=== PATIENT | female | born 1960 | race Caucasian/White ===

== ENCOUNTER 2016-04-11 06:26 | Emergency (ER) | payer OTHER ==
[~2016-04-11] VITALS: Ht 157.5 cm; Wt 48.9 kg
[~2016-04-11 06:26] MED LIST: OXGN
[2016-04-11 06:32] VITALS: TEMP 36.8; Ht 157.5 cm; Wt 48.9 kg
[2016-04-11] MEDS ORDERED: HYDR50CA2 PO (06:59)
[2016-04-11] MEDS ORDERED: CHOLPOW PO (07:00)
[2016-04-11 07:27] LABS: BASO % 0.5 %; BASO ABS # 0.03 K/uL (0-0.2); COMPLETE YES; EOS % 2.1 %; HEMATOCRIT 39.7 % (37-47); IG% 0.2 %; LYMPH ABS # 1.93 K/uL (1.2-3.4); MEAN CORPUSCULAR HEMOGLOBIN 31.7 pg (25-34); MEAN CORPUSCULAR HGB CONC 35.3 g/dl (32-36); MEAN PLATELET VOLUME 11.1 fL (7.4-10.4); MONO % 8.7 %; NEUT % 55.5 %; PLATELET COUNT 224 K/uL (130-400); RED BLOOD COUNT 4.41 M/uL (4.2-5.4); WHITE BLOOD COUNT 5.84 K/uL (4.8-10.8)
[2016-04-11] MEDS ORDERED: LORAZEPAM 1 MG TAB SL STA (07:31)
[2016-04-11 07:42] LABS: BLOOD UREA NITROGEN 7 mg/dl (7-18); BUN/CREATININE RATIO 9.6 (10-20); CARBON DIOXIDE 23 mmol/L (21-32); CHLORIDE 109 mmol/L (98-107); GLUCOSE 80 mg/dl (70-99); POTASSIUM 3.9 mmol/L (3.5-5.1); SODIUM 141 mmol/L (136-145)
--- NOTE | 2016-04-11 07:50 | DIAGNOSTIC IMAGING REPORT ---
LUMBAR SPINE 5 VIEWS HISTORY: low back pain COMPARISON: None. FINDINGS: There is no fracture. No subluxation. Prior cholecystectomy. Suture material within the deep pelvis. The sacrum is intact. Mild facet degenerative changes within the lower lumbar spine. Disc spaces are relatively preserved for age. Tiny endplate osteophytes within the lumbar spine. IMPRESSION: 1. No fracture or subluxation within the lumbar spine. 2. Mild facet degenerative changes within the lower lumbar spine. Electronically signed by: Junior Velazquez M.D. 04/11/2016 7:49 AM Dictated Date/Time: 04/11/2016 7:47 AM
[2016-04-11 07:53] LABS: ALB/GLOB RATIO 0.9 (0.9-2); ALKALINE PHOSPHATASE 71 U/L (45-117); ALT/SGPT 19 U/L (12-78); AST/SGOT 12 U/L (15-37)
[2016-04-11 08:01] LABS: URINE APPEARANCE CLOUDY (CLEAR); URINE BILIRUBIN NEG (NEG); URINE COLOR YELLOW; URINE EPITHELIAL CELL AUTO 0-5 /lpf (0-5); URINE NITRITE NEG (NEG); URINE SPECIFIC GRAVITY 1.001 (1.000-1.030); UROBILINOGEN NEG (NEG)
[2016-04-11 08:06] LABS: MANUAL MICROSCOPIC REQUIRED? NO; REVIEW REQ? NO
[2016-04-11 08:35] LABS: BENZODIAZEPINE, URINE NEG (NEG); COCAINE,URINE NEG (NEG); PHENCYCLIDINE, URINE NEG (NEG)
[2016-04-11] MEDS ORDERED: ATV/1 PO (09:39)
[2016-04-11 10:27] VITALS: BP 108/69; PULSE 87; O2SAT 99
--- NOTE | 2016-04-11 15:18 | EMERGENCY ROOM VISIT NOTE ---
History Report prepared by Jared: Hay Armando Under the Supervision of: Dr. Matt Bedolla M.D. First contact with patient: 06:45 Chief Complaint: ANXIETY Stated Complaint: ANXIETY History of Present Illness The patient is a 55 year old female who presents to the Emergency Room with complaints of acute anxiety for the past two days. The patient has felt like "her insides are shaking." She is also having trouble sleeping and has a lot running through her mind. She is not sure what triggered this episode. She had the same feeling many years ago, and was diagnosed with anxiety and depression at [facility]. At that time she was prescribed Lorazepam and Prozac, which she hasn't taken in years. The patient has only had minor episodes of anxiety since the initial diagnosis. The patient denies suicidal or homicidal ideations. The patient was admitted as an inpatient for suicidality years ago when she was still under the influence of alcohol. She hasn't used drugs or alcohol in many years. The patient also notes that she lost 9 pounds over the past three weeks. She also complains of persistent back pain. She denies any back injuries or falls. Patient denies LOC, headache, fevers, chills, diaphoresis, visual changes , neck pain, chest pain, breathing difficulties, nausea, vomiting, abdominal pain, melena, hematochezia, urinary symptoms, numbness, weakness, lymphadenopathy, rash, or other complaints. Source of History: patient Onset: two days Position: other (psyche) Quality: other (anxiety) Timing: other (acute) Associated Symptoms: + back pain Note: Negative suicidal or homicidal ideations. Review of Systems See HPI for pertinent positives and negatives. A total of ten systems were reviewed and were otherwise negative. Past Medical & Surgical Medical Problems: (1) COPD (chronic obstructive pulmonary disease) (2) Depression (3) Generalized anxiety disorder (4) GERD (gastroesophageal reflux disease) (5) History of diverticulitis (6) Hx-Uterus Malignancy Nec (7) Small bowel obstruction Surgical Problems: (1) H/O colonoscopy (2) History of bowel resection (3) History of hysterectomy (4) Hx of dilation and curettage (5) Hx of hernia repair (6) Hx of laparoscopy (7) S/P exploratory laparotomy Family History Cancer Diabetes mellitus Lung disease Social History Smoking Status: Current Every Day Smoker Alcohol Use: none Drug Use: none Marital Status: in relationship Housing Status: lives with significant other Occupation Status: unemployed Current/Historical Medications Scheduled Cholestyramine (Bulk) (Cholestyramine), 1 PKT PO Q2D Hydroxyzine Pamoate (Vistaril), 50 MG PO TID Scheduled PRN Lorazepam (Ativan), 1 MG PO Q6H PRN for Anxiety/Agitation Allergies Coded Allergies: No Known Allergies (Unverified , 03/07/15) Physical Exam Vital Signs Date Time Temp Pulse Resp B/P Pulse Ox O2 Delivery O2 Flow Rate FiO2 04/11/16 10:27 87 108/69 99 04/11/16 09:39 83 101/67 98 04/11/16 07:49 77 18 126/67 98 Room Air 04/11/16 06:32 36.8 81 18 129/83 97 Room Air Physical Exam GENERAL: Awake, alert, well appearing, no distress HENT: Normocephalic, atraumatic. TM's normal. Oropharynx unremarkable. EYES: PERRL. EOMI. Normal conjunctiva. Sclera non-icteric. NECK: Supple. No nuchal rigidity. FROM. No JVD or bruit. RESPIRATORY: CTA CARDIAC: RRR. No murmur. ABDOMEN: Soft, non distended. No tenderness to palpation. No rebound or guarding. No masses. MUSCULOSKELETAL: Unremarkable. No edema. No discoloration. Gross motor strength symmetric. NEURO: Cranial nerves 2-12 grossly intact. Normal sensorium. No sensory or motor deficits noted. Speech normal. No pronator drift. SKIN: No rash or jaundice noted. LYMPH: No adenopathy. PSYCH: Anxious mood. Normal affect. No suicidal ideation. no homicidal ideation. Medical Decision & Procedures ER Provider Diagnostic Interpretation: X-ray: Per my interpretation, radiologist review. LUMBAR SPINE 5 VIEWS HISTORY: low back pain COMPARISON: None. FINDINGS: There is no fracture. No subluxation. Prior cholecystectomy. Suture material within the deep pelvis. The sacrum is intact. Mild facet degenerative changes within the lower lumbar spine. Disc spaces are relatively preserved for age. Tiny endplate osteophytes within the lumbar spine. IMPRESSION: 1. No fracture or subluxation within the lumbar spine. 2. Mild facet degenerative changes within the lower lumbar spine. Electronically signed by: Junior Velazquez M.D. 04/11/2016 7:49 AM Dictated Date/Time: 04/11/2016 7:47 AM Laboratory Results 04/11/16 07:05 Red Blood Count 4.41, Mean Corpuscular Volume 90.0, Mean Corpuscular Hemoglobin 31.7, Mean Corpuscular Hemoglobin Concent 35.3, Mean Platelet Volume 11.1, Neutrophils (%) (Auto) 55.5, Lymphocytes (%) (Auto) 33.0, Monocytes (%) (Auto) 8.7, Eosinophils (%) (Auto) 2.1, Basophils (%) (Auto) 0.5, Neutrophils # (Auto) 3.24, Lymphocytes # (Auto) 1.93, Monocytes # (Auto) 0.51, Eosinophils # (Auto) 0.12, Basophils # (Auto) 0.03 04/11/16 07:05 Test 04/11/16 07:05 04/11/16 07:08 04/11/16 07:40 White Blood Count 5.84 K/uL (4.8-10.8) Red Blood Count 4.41 M/uL (4.2-5.4) Hemoglobin 14.0 g/dL (12.0-16.0) Hematocrit 39.7 % (37-47) Mean Corpuscular Volume 90.0 fL (80-100) Mean Corpuscular Hemoglobin 31.7 pg (25-34) Mean Corpuscular Hemoglobin Concent 35.3 g/dl (32-36) Platelet Count 224 K/uL (130-400) Mean Platelet Volume 11.1 fL (7.4-10.4) Neutrophils (%) (Auto) 55.5 % Lymphocytes (%) (Auto) 33.0 % Monocytes (%) (Auto) 8.7 % Eosinophils (%) (Auto) 2.1 % Basophils (%) (Auto) 0.5 % Neutrophils # (Auto) 3.24 K/uL (1.4-6.5) Lymphocytes # (Auto) 1.93 K/uL (1.2-3.4) Monocytes # (Auto) 0.51 K/uL (0.11-0.59) Eosinophils # (Auto) 0.12 K/uL (0-0.5) Basophils # (Auto) 0.03 K/uL (0-0.2) RDW Standard Deviation 46.3 fL (36.4-46.3) RDW Coefficient of Variation 14.0 % (11.5-14.5) Immature Granulocyte % (Auto) 0.2 % Immature Granulocyte # (Auto) 0.01 K/uL (0.00-0.02) Anion Gap 9.0 mmol/L (3-11) Est Creatinine Clear Calc Drug Dose 70.1 ml/min Estimated GFR () 113.0 Estimated GFR (Non- 97.5 BUN/Creatinine Ratio 9.6 (10-20) Calcium Level 9.0 mg/dl (8.5-10.1) Total Bilirubin 0.2 mg/dl (0.2-1) Direct Bilirubin < 0.1 mg/dl (0-0.2) Aspartate Amino Transf (AST/SGOT) 12 U/L (15-37) Alanine Aminotransferase (ALT/SGPT) 19 U/L (12-78) Alkaline Phosphatase 71 U/L (45-117) Total Protein 7.4 gm/dl (6.4-8.2) Albumin 3.6 gm/dl (3.4-5.0) Globulin 3.8 gm/dl (2.5-4.0) Albumin/Globulin Ratio 0.9 (0.9-2) Thyroid Stimulating Hormone (TSH) 2.860 uIu/ml (0.300-4.500) Ethyl Alcohol mg/dL < 3.0 mg/dl (0-3) Bedside Glucose 80 mg/dl (70-90) Urine Color YELLOW Urine Appearance CLOUDY (CLEAR) Urine pH 5.0 (4.5-7.5) Urine Specific [place] 1.001 (1.000-1.030) Urine Protein NEG (NEG) Urine Glucose (UA) NEG (NEG) Urine Ketones NEG (NEG) Urine Occult Blood NEG (NEG) Urine Nitrite NEG (NEG) Urine Bilirubin NEG (NEG) Urine Urobilinogen NEG (NEG) Urine Leukocyte Esterase LARGE (NEG) Urine WBC (Auto) >30 /hpf (0-5) Urine RBC (Auto) 0-4 /hpf (0-4) Urine Hyaline Casts (Auto) 1-5 /lpf (0-5) Urine Epithelial Cells (Auto) 0-5 /lpf (0-5) Urine Bacteria (Auto) 4+ (NEG) Urine Opiates Screen NEG (NEG) Urine Methadone, Qualitative NEG (NEG) Urine Barbiturates NEG (NEG) Urine Phencyclidine (PCP) Level NEG (NEG) Ur Amphetamine/Methamphetamine NEG (NEG) MDMA (Ecstasy) Screen NEG (NEG) Urine Benzodiazepines Screen NEG (NEG) Urine Cocaine Metabolite NEG (NEG) Urine Marijuana (THC) NEG (NEG) Laboratory results reviewed by me Medications Administered Medications (Trade) Dose Ordered Sig/Trung Route Start Time Stop Time Status Last Admin Dose Admin Lorazepam (Ativan Tab) 1 mg NOW STAT SL 04/11/16 07:31 04/11/16 07:32 DC 04/11/16 07:48 1 MG ED Course 0725: The patient was evaluated in room B3b. A complete history and physical exam was performed. 0731: Ativan 1 mg SL. 0850: The patient was evaluated by [facility]. 0910: She is feeling better from the Ativan. 0935: Reassessed the patient. She is doing much better. I discussed the findings with her. She verbalized understanding and agreement of the treatment plan. The patient is ready for discharge. Medical Decision Prior records/ancillary studies reviewed. Triage Nursing notes reviewed and agree them. The patient's history was concerning for possible psychiatric disturbance. Differential diagnosis: Etiologies such as mood disorder, infection, hypoglycemia, electrolyte abnormalities, cardiac sources, intracerebral event, toxicologic, neurologic, as well as others were entertained. Physical examination: The physical examination was performed as above and was completely benign. No emergent medical pathologies were noted. The patient had some mild back pain. Negative SLR. No saddle paresthesias. Normal lower leg strength. ER treatment provided: Oral Ativan On reassessment the patient felt better. Diagnostic interpretation by me: The labs revealed an unremarkable CBC and chemistry panel. Urinalysis tox screen unremarkable. Imaging studies: X-rays as above Consultation: A consultation was placed with mental health. The patient was evaluated by mental health in the emergency department and they felt outpatient treatment was reasonable. The patient did not want to be admitted to the hospital. The patient was provided with information for follow-up. She did not want to have her information released. By the evaluation outlined above emergent etiologies such as infection, hypoglycemia, electrolyte abnormalities, cardiac sources, intracerebral event, toxicologic, neurologic,as well as others were deemed relatively unlikely. It appears the patient is dealing with a psychiatric disturbance. The patient was informed about the findings as listed above. All questions were answered and she was pleased with the treatment. Return instructions were outlined and the patient was discharged in stable condition. Outpatient prescription management: Ativan Referral: Outpatient services were arranged by psychiatry. The patient will follow-up this week or return to the emergency department if symptoms worsen. The patient was referred back to her primary care physician for follow-up in 2 to 3 days for a recheck of the current condition. The chart was completed utilizing [employer] Speech voice recognition software. Grammatical errors, random word insertions, pronoun errors, and incomplete sentences are an occasional consequence of this system due to software limitations, ambient noise, and hardware issues. Any formal questions or concerns about the content, text, or information contained within the body of this dictation should be directly addressed to the physician for clarification. [place] Drug Monitoring Program Search Results: patient reviewed within database, no issues identified Impression Primary Impression: Mood disorder Additional Impressions: Anxiety Low back pain Scribe Attestation The scribe's documentation has been prepared under my direction and personally reviewed by me in its entirety. I confirm that the note above accurately reflects all work, treatment, procedures, and medical decision making performed by me. Departure Information Dispostion Home / Self-Care Prescriptions Lorazepam (ATIVAN) 1 Mg Tab 1 MG PO Q6H Y for Anxiety/Agitation, #10 TAB Prov: Matt Bedolla MD 04/11/16 Referrals Placido Emerson M.D. (PCP) Forms HOME CARE DOCUMENTATION FORM, IMPORTANT VISIT INFORMATION Patient Instructions My [facility] Additional Instructions PSYCHIATRIC INSTRUCTIONS: Ativan 1 mg: Take one every 6 hours as needed for severe anxiety. Do not drive if taking. May cause drowsiness. Do not take if you are at work or doing any activity where being under the influence may be dangerous. Continue your current medications. Return to the ER for severe anxiety or depression, thoughts of hurting yourself or others, inability to function, hallucinations, worsening of your condition, or as needed. Follow up with outpatient services as arranged by psychiatry/mental health. Follow up with your primary care physician this week for a recheck of your current condition and continued care. Problem Qualifiers
[2016-07-10] MEDS ORDERED: TRAM-10 PO (10:53)
[2016-07-10] MEDS ORDERED: ESCI10TA17 PO (10:53)
[2016-07-10] MEDS ORDERED: GENT0.3S6 OP (10:53)
[2016-07-10] MEDS ORDERED: DICY10CA12 PO (10:53)
[2016-07-10] MEDS ORDERED: ONDA4TAB46 PO (10:53)
[2016-07-10] MEDS ORDERED: PRLSR20 PO (10:53)
[2016-07-10] MEDS ORDERED: LORA-741 PO (10:53)
[2016-07-12] MEDS ORDERED: CEPH500C PO (10:55)
== END 2016-04-11 10:27 | disposition home or self-care (01) ==
LOC: C.EDB 06:28
DX: F39 Unspecified mood [affective] disorder (principal); F41.9 Anxiety disorder, unspecified; M54.5 Low back pain; J44.9 Chronic obstructive pulmonary disease, unspecified; K21.9 Gastro-esophageal reflux disease without esophagitis; F17.200 Nicotine dependence, unspecified, uncomplicated

== ENCOUNTER → 2016-08-20 | Outpatient (CLI) | payer OTHER ==
[~2016-08-20] MED LIST changes: +CEPH500C PO; +CHOLPOW PO; +DICY10CA12 PO; +ESCI10TA17 PO; +GENT0.3S6 OP; +LORA-741 PO; +ONDA4TAB46 PO; -OXGN; +PRLSR20 PO; +TRAM-10 PO
[2016-08-20 12:24] LABS: BASO % 0.5 %; BASO ABS # 0.03 K/uL (0-0.2); COMPLETE YES; EOS % 2.1 %; HEMATOCRIT 41.3 % (37-47); IG% 0.2 %; LYMPH % 39.7 %; LYMPH ABS # 2.45 K/uL (1.2-3.4); MEAN CELL VOLUME 92.4 fL (80-100); MEAN CORPUSCULAR HEMOGLOBIN 31.3 pg (25-34); MEAN CORPUSCULAR HGB CONC 33.9 g/dl (32-36); MEAN PLATELET VOLUME 11.8 fL (7.4-10.4); MONO % 9.2 %; NEUT % 48.3 %; PLATELET COUNT 221 K/uL (130-400); RED BLOOD COUNT 4.47 M/uL (4.2-5.4); WHITE BLOOD COUNT 6.17 K/uL (4.8-10.8)
[2016-08-20 13:07] LABS: ALT/SGPT 22 U/L (12-78); AMYLASE 69 U/L (25-115); AST/SGOT 16 U/L (15-37); BLOOD UREA NITROGEN 7 mg/dl (7-18); BUN/CREATININE RATIO 9.2 (10-20); CALCIUM 8.8 mg/dl (8.5-10.1); CARBON DIOXIDE 28 mmol/L (21-32); CHLORIDE 107 mmol/L (98-107); GLUCOSE 82 mg/dl (70-99); SODIUM 141 mmol/L (136-145)
[2016-08-20 13:15] LABS: ALB/GLOB RATIO 0.9 (0.9-2); ALKALINE PHOSPHATASE 75 U/L (45-117); C-REACTIVE PROTEIN < 0.29 mg/dl (0-0.29)
[2016-08-22 03:18] LABS: IGA SERUM 313 mg/dL (81-463); TIS TRANS IGA 1 U/mL (<4)
== END | disposition home or self-care (01) ==
LOC: C.LAB 10:49
PROVIDERS: ATTEND Registered Nurse
DX: R10.9 Unspecified abdominal pain (principal)

== ENCOUNTER → 2016-08-22 | Outpatient (CLI) | payer OTHER ==
--- NOTE | 2016-08-22 07:59 | DIAGNOSTIC IMAGING REPORT ---
ULTRASOUND RIGHT UPPER QUADRANT ABDOMEN CLINICAL HISTORY: Nausea and vomiting. COMPARISON STUDY: Abdominal CT dated 10/26/2015. TECHNIQUE: Real-time, grayscale, and color flow sonography of the right upper quadrant of the abdomen was performed. Images are reviewed in the transverse and longitudinal planes. FINDINGS: Liver: The liver is normal in size and echotexture. There is no intrahepatic biliary ductal dilatation. The main portal vein is patent. Gallbladder: The gallbladder is surgically absent. The common bile duct measures up to 0.6 cm in diameter. Pancreas: Visualized portions of the pancreatic head and body are normal in appearance. Right kidney: Survey images of the right kidney demonstrate normal size and echotexture. There is no hydronephrosis. Ascites: None. IMPRESSION: Unremarkable sonographic assessment of the right upper quadrant noting status post cholecystectomy. Electronically signed by: Juan Daigle M.D. 08/22/2016 7:57 AM Dictated Date/Time: 08/22/2016 7:56 AM
== END | disposition home or self-care (01) ==
LOC: C.ULTR 07:27
PROVIDERS: ATTEND Registered Nurse
DX: R11.2 Nausea with vomiting, unspecified (principal); R10.9 Unspecified abdominal pain; Z90.49 Acquired absence of other specified parts of digestive tract

== ENCOUNTER → 2016-08-29 | Day surgery (SDC) | payer OTHER ==
[2016-08-27 08:55] VITALS: Ht 157.5 cm; Wt 40.9 kg
[~2016-08-29] VITALS: Ht 157.5 cm; Wt 40.9 kg
[~2016-08-29] MED LIST changes: -CEPH500C PO; +LIDOCAINE HCL 2% 2 ML VIAL (20MG/ML) ONE; +PROPOFOL IV EMULSION 10 MG/ML 20 ML VIAL IV ONE; +SODIUM CHLORIDE 0.9% 500ML 500 ML IV ONE
--- NOTE | 2016-08-29 14:01 | Endo History and Physical ---
History & Physical Date of Service: Aug 29, 2016. Chief Complaint: ABDOMINAL PAIN, DIARRHEA, WEIGHTLOSS Referring Physician: DR. LANDEROS History of Present Illness 55 yo CF who presents for Colonoscopy secondary to abdominal pain, diarrhea and weight loss. Past Medical History Gastrointestinal Disorder, Anxiety, Reflux, Cancer, COPD, Depression Past Surgical History Hx Cardiac Surgery: No Hx Abdominal Surgery: Yes (ISA BSO,BOWEL RESECTION X 3, HERNIA WITH MESH,GB SURG) Hx of Implantable Prosthesis: No Hx Post-Op Nausea and Vomiting: No Hx Cancer Surgery: Yes (CERVICAL BX-ISA BSO) Hx Thoracic Surgery: No Hx Orthopedic: No Hx Urinary Tract Surgery: No Social History Smoking Status: Light Tobacco Smoker Hx Substance Use: No Hx Alcohol Use: No Allergies Coded Allergies: No Known Allergies (Verified , 08/29/16) Current Medications Reported Home Medications Medications Dose Route/Sig Max Daily Dose Days Date Category Dose Instructions Zofran (Ondansetron HCl) 4 Mg Tab 4 Mg PO TID PRN 07/10/16 Reported Dicyclomine Hcl 10 Mg Cap 1 Cap PO BID PRN 30 07/10/16 Reported Ultram (Tramadol HCl) 50 Mg Tab 1 Tab PO TID PRN 30 07/10/16 Reported Prilosec (Omeprazole) 20 Mg Capcr 20 Mg PO PRN 07/10/16 Reported Ativan (Lorazepam) 0.5 Mg Tab 0.5 Mg PO TID 07/10/16 Reported Lexapro (Escitalopram Oxalate) 10 Mg Tab 10 Mg PO HS 07/10/16 Reported Gentak (Gentamicin Sulfate (Ophth)) 0.3 % Nadege 1 Drops OP QID PRN 07/10/16 Reported Cholestyramine (Cholestyramine (Bulk)) 1 Pow Pow 1 Pkt PO Q2D 04/11/16 Reported MIX IN WATER OR JUICE Vital Signs Weight (Kilograms): 40.91 Height (Feet): 5 Height (Inches): 2 Date Time Temp Pulse Resp B/P (MAP) Pulse Ox O2 Delivery O2 Flow Rate FiO2 08/29/16 13:32 36.8 76 20 113/65 (81) 96 Room Air Physical Exam General Appearance: WD/WN, no apparent distress Respiratory/Chest: Auscultation: breath sounds normal Cardiovascular: Heart Auscultation: RRR Abdomen: Bowel Sounds: normal Inspection & Palpation: soft, non-distended, no tenderness, guarding & rebound Assessment and Plan Assessment: 55 yo CF who presents for Colonoscopy secondary to abdominal pain, diarrhea and weight loss. Plan: Proceed with colonoscopy.
--- NOTE | 2016-08-29 14:44 | GI REPORT ---
Procedure Date: 08/29/2016 2:09 PM THIS REPORT HAS BEEN AMENDED Addendum Number: 1 Addendum Date: 09/08/2016 4:16:28 PM No specimens were collected during this exam, and therefore, no pathology is pending. Repeat colonoscopy in 10 years for screening. Procedure: Colonoscopy Indications: Generalized abdominal pain, Weight loss Medicines: Monitored Anesthesia Care Complications: No immediate complications. Estimated Blood Loss: Estimated blood loss: none. Procedure: Pre-Anesthesia Assessment: - Prior to the procedure, a History and Physical was performed, and patient medications and allergies were reviewed. The patient's tolerance of previous anesthesia was also reviewed. The risks and benefits of the procedure and the sedation options and risks were discussed with the patient. All questions were answered, and informed consent was obtained. Prior Anticoagulants: The patient has taken no previous anticoagulant or antiplatelet agents. ASA Grade Assessment: II - A patient with mild systemic disease. After reviewing the risks and benefits, the patient was deemed in satisfactory condition to undergo the procedure. After I obtained informed consent, the scope was passed under direct vision. Throughout the procedure, the patient's blood pressure, pulse, and oxygen saturations were monitored continuously. The scope was introduced through the anus and advanced to the terminal ileum. The colonoscopy was performed without difficulty. The patient tolerated the procedure well. The quality of the bowel preparation was good. The terminal ileum, ileocecal valve, appendiceal orifice, and rectum were photographed. Findings: There was evidence of a prior end-to-side colo-colonic anastomosis in the sigmoid colon. This was patent and was characterized by healthy appearing mucosa. The anastomosis was traversed. Non-bleeding internal hemorrhoids were found during retroflexion. The hemorrhoids were small. Impression: - Patent end-to-side colo-colonic anastomosis, characterized by healthy appearing mucosa. - Non-bleeding internal hemorrhoids. - No specimens collected. Recommendation: - Resume previous diet. - Continue present medications. - Repeat colonoscopy for surveillance based on pathology results. - Return to primary care physician as previously scheduled. Francesco VirgilAndrew FélixDO 08/29/2016 2:44:15 PM This report has been signed electronically. Note Initiated On: 08/29/2016 2:09 PM I attest to the content of the Intraoperative Record and orders documented therein, exceptions below Francesco Heard DO 09/08/2016 4:17:10 PM This report has been signed electronically.
--- NOTE | 2016-08-29 14:46 | Discharge Instructions ---
Endoscopy Patient Instructions Date / Procedure(s) Performed Aug 29, 2016. Colonoscopy Allergy Information Coded Allergies: No Known Allergies (Verified , 08/29/16) Discharge Date / Findings Aug 29, 2016. Healthy appearing Rectal colo-colonic anastomosis Internal hemorrhoids Medication Instructions OK to resume all medications today as prescribed Reported Home Medications Medications Dose Route/Sig Max Daily Dose Days Date Category Dose Instructions Zofran (Ondansetron HCl) 4 Mg Tab 4 Mg PO TID PRN 07/10/16 Reported Dicyclomine Hcl 10 Mg Cap 1 Cap PO BID PRN 30 07/10/16 Reported Ultram (Tramadol HCl) 50 Mg Tab 1 Tab PO TID PRN 30 07/10/16 Reported Prilosec (Omeprazole) 20 Mg Capcr 20 Mg PO PRN 07/10/16 Reported Ativan (Lorazepam) 0.5 Mg Tab 0.5 Mg PO TID 07/10/16 Reported Lexapro (Escitalopram Oxalate) 10 Mg Tab 10 Mg PO HS 07/10/16 Reported Gentak (Gentamicin Sulfate (Ophth)) 0.3 % Nadege 1 Drops OP QID PRN 07/10/16 Reported Cholestyramine (Cholestyramine (Bulk)) 1 Pow Pow 1 Pkt PO Q2D 04/11/16 Reported MIX IN WATER OR JUICE Provider Instructions Activity Restrictions - No exercising or heavy lifting for 24 hours. - Do not drink alcohol the day of the procedure. - Do not drive a car or operate machinery until the day after the procedure. - Do not make any important decisions or sign important papers in 24 hours after the procedure. Following Day: - Return to full activity which may include returning to work/school. Diet Start your diet with liquids and light foods (jello, soup, juice, toast). Then eat your usual diet if not nauseated. Treatment For Common After Affects For mild abdominal pain, bloating, or excessive gas: - Rest - Eat lightly - Lie on right side Follow-Up Information Follow-up with DR. LANDEROS as scheduled Anesthesia Information What You Should Know You have had a procedure that required some medicine to reduce anxiety and discomfort. This treatment is called moderate sedation. After receiving the treatment, you may be sleepy, but you will be able to breathe on your own. The effects of the treatment may last for several hours. Follow these instructions along with Activity/Diet recommendations noted above: * Do NOT do anything where dizziness or clumsiness would be dangerous. * Rest quietly at home today, then you can be up and about tomorrow. * Have a responsible person stay with you the rest of today. * You may have had an I.V. today. If so, you may take the dressing off later today. Recommendations Call your doctor if: * Trouble breathing * Continuous vomiting for more than 24 hours * Temperature above 101 degrees * Severe abdominal pain or bloating * Pain not relieved by pain medicine ordered * There is increased drainage or redness from any incision * A large amount of rectal bleeding greater than 2-3 tablespoons. (If you had a polyp/s removed or have hemorrhoids, a small amount of blood - from the rectum is to be expected.) * You have any unanswered questions or concerns. IN THE EVENT OF A SERIOUS EMERGENCY, GO TO THE NEAREST EMERGENCY ROOM Your discharge instructions were prepared by provider Francesco Heard. Patient Instructions Signature Page Ashley Garcia Patient (or Guardian) Signature/Date: I have read and understand the instructions given to me by my caregivers. Caregiver/RN/Doctor Signature/Date: The above-named patient and/or guardian has received patient instructions on this date. + Original Patient Signature Page (only) stays with chart. Please make copy for patient.
--- NOTE | 2016-08-29 15:00 | Anesthesiology Progress Note ---
Anesthesia Post Op Note Date & Time Aug 29, 2016 at 15:00 Vital Signs Pain Intensity: 6 Vital Signs Past 12 Hours Date Time Temp Pulse Resp B/P (MAP) Pulse Ox O2 Delivery O2 Flow Rate FiO2 08/29/16 14:46 71 36 111/65 (80) 99 Room Air 08/29/16 14:31 70 36 83/54 (64) 96 Room Air 08/29/16 13:32 36.8 76 20 113/65 (81) 96 Room Air Notes Mental Status: alert / awake / arousable, participated in evaluation Pt Amnestic to Procedure: Yes Nausea / Vomiting: adequately controlled Pain: adequately controlled Airway Patency, RR, SpO2: stable & adequate BP & HR: stable & adequate Hydration State: stable & adequate Anesthetic Complications: no major complications apparent
[2016-08-29 15:01] VITALS: BP 125/66; PULSE 68; O2SAT 98
== END | disposition home or self-care (01) ==
LOC: C.GI 13:06
PROVIDERS: ATTEND Internal Medicine
DX: R10.84 Generalized abdominal pain (principal); R19.7 Diarrhea, unspecified; R63.4 Abnormal weight loss; J44.9 Chronic obstructive pulmonary disease, unspecified; K64.8 Other hemorrhoids; F41.9 Anxiety disorder, unspecified; K21.9 Gastro-esophageal reflux disease without esophagitis; F32.9 Major depressive disorder, single episode, unspecified; F17.200 Nicotine dependence, unspecified, uncomplicated; Z79.899 Other long term (current) drug therapy; Z90.49 Acquired absence of other specified parts of digestive tract; Z90.710 Acquired absence of both cervix and uterus; Z98.890 Other specified postprocedural states; Z85.9 Personal history of malignant neoplasm, unspecified

== ENCOUNTER → 2016-12-31 | Outpatient (CLI) | payer OTHER ==
[~2016-12-31] MED LIST changes: -LIDOCAINE HCL 2% 2 ML VIAL (20MG/ML) ONE; -PROPOFOL IV EMULSION 10 MG/ML 20 ML VIAL IV ONE; -SODIUM CHLORIDE 0.9% 500ML 500 ML IV ONE
[2016-12-31 17:08] LABS: BASO % 0.5 %; BASO ABS # 0.04 K/uL (0-0.2); COMPLETE YES; EOS % 4.6 %; HEMATOCRIT 38.7 % (37-47); IG% 0.1 %; LYMPH % 29.5 %; LYMPH ABS # 2.54 K/uL (1.2-3.4); MEAN CELL VOLUME 94.2 fL (80-100); MEAN CORPUSCULAR HEMOGLOBIN 32.6 pg (25-34); MEAN CORPUSCULAR HGB CONC 34.6 g/dl (32-36); NEUT % 59.3 %; PLATELET COUNT 204 K/uL (130-400); RED BLOOD COUNT 4.11 M/uL (4.2-5.4); WHITE BLOOD COUNT 8.61 K/uL (4.8-10.8)
--- NOTE | 2016-12-31 17:23 | DIAGNOSTIC IMAGING REPORT ---
CHEST 2 VIEWS ROUTINE HISTORY: 56 years-old Female COPD EXACERBATION J44.1 symptoms are acute in nature. COMPARISON: Chest radiograph 10/26/2015 TECHNIQUE: Frontal and lateral views of the chest FINDINGS: Cardiac mediastinal and hilar silhouettes are within normal limits. Lungs are hyperinflated and hyperlucent compatible with emphysema. No pneumothorax, pleural effusion or focal airspace consolidation identified. No overt pulmonary edema. Clips are seen within the right upper quadrant of the abdomen suggest prior cholecystectomy. Bones are grossly intact. IMPRESSION: Emphysema without acute cardiopulmonary process. The above report was generated using voice recognition software. It may contain grammatical, syntax or spelling errors. Electronically signed by: Golden Marmolejo M.D. 12/31/2016 5:21 PM Dictated Date/Time: 12/31/2016 5:19 PM
[2016-12-31 17:26] LABS: BLOOD UREA NITROGEN 9 mg/dl (7-18); BUN/CREATININE RATIO 12.9 (10-20); CALCIUM 9.3 mg/dl (8.5-10.1); CARBON DIOXIDE 29 mmol/L (21-32); CHLORIDE 108 mmol/L (98-107); CREATININE 0.71 mg/dl (0.60-1.20); GLUCOSE 83 mg/dl (70-99); POTASSIUM 4.1 mmol/L (3.5-5.1); SODIUM 142 mmol/L (136-145)
== END | disposition home or self-care (01) ==
LOC: C.RAD 16:47
PROVIDERS: ATTEND Nurse Practitioner Family
DX: J44.1 Chronic obstructive pulmonary disease with (acute) exacerbation (principal); J43.9 Emphysema, unspecified

== ENCOUNTER → 2017-02-21 | Outpatient (CLI) | payer OTHER ==
[~2017-02-21] MED LIST changes: +FLUT1INH; +IPRA1AER2 INH; +IPRASOL4 INH; +MIRT45TA3 PO; +OMEP20TA PO; +PRED20TA2 PO
== END | disposition home or self-care (01) ==
LOC: C.LAB 16:40
PROVIDERS: ATTEND Family Medicine
DX: R39.9 Unspecified symptoms and signs involving the genitourinary system (principal)

== ENCOUNTER 2017-03-08 20:39 | Emergency (ER) | payer OTHER ==
[~2017-03-08] VITALS: Ht 157.5 cm; Wt 49.5 kg
[~2017-03-08 20:39] MED LIST changes: -FLUT1INH; -IPRA1AER2 INH; -IPRASOL4 INH; -MIRT45TA3 PO; -OMEP20TA PO; -PRED20TA2 PO
[2017-03-08 20:48] VITALS: TEMP 36.7; Ht 157.5 cm; Wt 49.5 kg
[2017-03-08] MEDS ORDERED: SODIUM CHLORIDE 0.9% 500ML 500 ML IV STA (20:50)
[2017-03-08 20:53] VITALS: O2SAT 98
[2017-03-08] MEDS ORDERED: IPRASOL4 INH (20:56)
[2017-03-08] MEDS ORDERED: OMEP20TA PO (20:56)
[2017-03-08] MEDS ORDERED: FLUT1INH (20:56)
[2017-03-08] MEDS ORDERED: MIRT45TA3 PO (20:56)
[2017-03-08] MEDS ORDERED: IPRA1AER2 INH (20:56)
[2017-03-08] MEDS ORDERED: ALBUT/IPRATROP 3MG/0.5MG NEB 3 ML VIAL INH ONE (21:00)
[2017-03-08 21:08] VITALS: PULSE 85; O2SAT 98
[2017-03-08 21:27] LABS: URINE APPEARANCE CLEAR (CLEAR); URINE BILIRUBIN NEG (NEG); URINE COLOR YELLOW; URINE NITRITE NEG (NEG); URINE SPECIFIC GRAVITY 1.013 (1.000-1.030); UROBILINOGEN NEG (NEG)
[2017-03-08 21:36] LABS: MANUAL MICROSCOPIC REQUIRED? NO; REVIEW REQ? NO
[2017-03-08 21:40] LABS: BASO % 0.2 %; BASO ABS # 0.02 K/uL (0-0.2); COMPLETE YES; HEMATOCRIT 39.4 % (37-47); IG% 0.3 %; LYMPH % 17.7 %; LYMPH ABS # 1.76 K/uL (1.2-3.4); MEAN CELL VOLUME 92.9 fL (80-100); MEAN CORPUSCULAR HEMOGLOBIN 31.6 pg (25-34); MEAN PLATELET VOLUME 9.9 fL (7.4-10.4); MONO % 4.2 %; NEUT % 76.6 %; PLATELET COUNT 258 K/uL (130-400); RED BLOOD COUNT 4.24 M/uL (4.2-5.4); WHITE BLOOD COUNT 9.93 K/uL (4.8-10.8)
[2017-03-08] MEDS ORDERED: METHYLPREDNISOLONE 125 MG VIAL IV STA (21:42)
--- NOTE | 2017-03-08 21:42 | DIAGNOSTIC IMAGING REPORT ---
CHEST ONE VIEW PORTABLE HISTORY: Pt c/o wheezy COMPARISON: Chest 12/31/2016. FINDINGS: The lungs are clear. Cardiac silhouette is normal in size. No pleural effusions. No pneumothorax. IMPRESSION: No acute process. Electronically signed by: Junior Velazquez M.D. 03/08/2017 9:40 PM Dictated Date/Time: 03/08/2017 9:38 PM
[2017-03-08 21:57] LABS: ALT/SGPT 19 U/L (12-78); BLOOD UREA NITROGEN 10 mg/dl (7-18); BUN/CREATININE RATIO 11.4 (10-20); CALCIUM 8.7 mg/dl (8.5-10.1); CARBON DIOXIDE 25 mmol/L (21-32); CHLORIDE 105 mmol/L (98-107); CREATININE 0.83 mg/dl (0.60-1.20); GLUCOSE 82 mg/dl (70-99); POTASSIUM 3.7 mmol/L (3.5-5.1); SODIUM 135 mmol/L (136-145)
[2017-03-08 22:02] LABS: ALKALINE PHOSPHATASE 66 U/L (45-117); AST/SGOT 16 U/L (15-37)
[2017-03-08] MEDS ORDERED: PRED20TA2 PO (22:33)
[2017-03-08 22:51] VITALS: BP 143/75; PULSE 100; O2SAT 94
[2017-03-08 22:52] LABS: INFLUENZA A PCR Neg for Influ A (NEG); INFLUENZA B PCR Neg for Influ B (NEG)
--- NOTE | 2017-03-09 00:11 | EMERGENCY ROOM VISIT NOTE ---
History Report prepared by Jared: J Carlos Ross Under the Supervision of: Dr. Avni Guzman M.D. First contact with patient: 20:42 Chief Complaint: DIZZY Stated Complaint: DIZZY/NAUSEA History of Present Illness The patient is a 56 year old female who presents to the Emergency Room by EMS with complaints of persistent generalized illness beginning a few days ago. The patient also complains of nausea and cough. She notes that she had a fever of 101 degrees yesterday. She has not much to eat or drink today. The patient denies any vomiting, back pain, or shortness of breath. She is a smoker. She has a history of chronic back pain and states that she currently has pain in her back. The patient notes that her boyfriend called EMS without her knowledge , and she was not going to be seen otherwise. Source of History: patient Onset: A few days ago Position: other (generalized) Quality: other (illness) Timing: other (persistent) Associated Symptoms: + fevers (101 degrees yesterday), + cough, + nausea, + back pain, No SOB, No vomiting, No abdominal pain Review of Systems See HPI for pertinent positives & negatives. A total of 10 systems reviewed and were otherwise negative. Past Medical & Surgical Medical Problems: (1) COPD (chronic obstructive pulmonary disease) (2) Depression (3) Generalized anxiety disorder (4) GERD (gastroesophageal reflux disease) (5) History of diverticulitis (6) Hx-Uterus Malignancy Nec (7) Small bowel obstruction Surgical Problems: (1) H/O colonoscopy (2) History of bowel resection (3) History of hysterectomy (4) Hx of dilation and curettage (5) Hx of hernia repair (6) Hx of laparoscopy (7) S/P exploratory laparotomy Family History Cancer Diabetes mellitus Lung disease Social History Smoking Status: Light Tobacco Smoker Alcohol Use: none Drug Use: none Marital Status: in relationship Housing Status: lives with significant other Occupation Status: unemployed Current/Historical Medications Scheduled Cholestyramine (Bulk) (Cholestyramine), 1 PKT PO DAILY Fluticasone Furoate-Vilanterol (Breo Ellipta), 1 INHA DAILY Ipratropium-Albuterol (Combivent Respimat), 1 PUFF INH QID Ipratropium-Albuterol (Duoneb), 1 TREATMENT INH UD Mirtazapine (Mirtazapine), 45 MG PO HS Omeprazole (Omeprazole), 20 MG PO DAILY Prednisone (Prednisone Tab), 0 PO DAILY Scheduled PRN Lorazepam (Ativan), 0.5 MG PO TID PRN for Anxiety Ondansetron Hcl (Zofran), 4 MG PO TID PRN for Nausea Tramadol (Ultram), 1 TAB PO TID PRN for Pain Allergies Coded Allergies: No Known Allergies (Verified , 08/29/16) Physical Exam Vital Signs Date Time Temp Pulse Resp B/P (MAP) Pulse Ox O2 Delivery O2 Flow Rate FiO2 03/08/17 22:51 100 18 143/75 94 03/08/17 22:18 101 20 129/78 97 Room Air 03/08/17 21:08 85 14 98 Room Air 03/08/17 21:06 82 03/08/17 20:53 98 Room Air 03/08/17 20:48 36.7 90 18 157/90 98 Room Air Physical Exam GENERAL: Patient is a healthy-appearing well-nourished female HEAD: Normocephalic atraumatic EYES: Ocular movements intact pupils equal and react to light OROPHARYNX mucous membranes are moist no exudates present no erythema or edema present NECK: Supple no nuchal rigidity CHEST: Good equal expansion LUNGS: Clear and equal to auscultation CARDIAC: Normal S1 and S2 ABDOMEN: Soft nontender no guarding BACK: No CVA tenderness EXTREMITIES: No pain upon palpation normal muscle strength in all groups no clubbing cyanosis or edema NEURO: Patient is following commands and answering questions appropriately. Alert and oriented x3 Cranial Nerves 2-12 grossly intact Medical Decision & Procedures ER Provider Diagnostic Interpretation: Radiology results as stated below per my review and radiologist interpretation: CHEST ONE VIEW PORTABLE FINDINGS: The lungs are clear. Cardiac silhouette is normal in size. No pleural effusions. No pneumothorax. IMPRESSION: No acute process. Electronically signed by: Junior Velazquez M.D. 03/08/2017 9:40 PM Laboratory Results 03/08/17 21:19 Red Blood Count 4.24, Mean Corpuscular Volume 92.9, Mean Corpuscular Hemoglobin 31.6, Mean Corpuscular Hemoglobin Concent 34.0, Mean Platelet Volume 9.9, Neutrophils (%) (Auto) 76.6, Lymphocytes (%) (Auto) 17.7, Monocytes (%) (Auto) 4.2, Eosinophils (%) (Auto) 1.0, Basophils (%) (Auto) 0.2, Neutrophils # (Auto) 7.60, Lymphocytes # (Auto) 1.76, Monocytes # (Auto) 0.42, Eosinophils # (Auto) 0.10, Basophils # (Auto) 0.02 03/08/17 21:19 Test 03/08/17 21:02 03/08/17 21:10 03/08/17 21:19 Influenza Type A (RT-PCR) Neg for Influ A (NEG) Influenza Type A Antigen Neg for Influ A (NEG) Influenza Type B Antigen Neg for Influ B (NEG) Influenza Type B (RT-PCR) Neg for Influ B (NEG) Urine Color YELLOW Urine Appearance CLEAR (CLEAR) Urine pH 5.0 (4.5-7.5) Urine Specific [place] 1.013 (1.000-1.030) Urine Protein NEG (NEG) Urine Glucose (UA) NEG (NEG) Urine Ketones NEG (NEG) Urine Occult Blood NEG (NEG) Urine Nitrite NEG (NEG) Urine Bilirubin NEG (NEG) Urine Urobilinogen NEG (NEG) Urine Leukocyte Esterase NEG (NEG) White Blood Count 9.93 K/uL (4.8-10.8) Red Blood Count 4.24 M/uL (4.2-5.4) Hemoglobin 13.4 g/dL (12.0-16.0) Hematocrit 39.4 % (37-47) Mean Corpuscular Volume 92.9 fL (80-100) Mean Corpuscular Hemoglobin 31.6 pg (25-34) Mean Corpuscular Hemoglobin Concent 34.0 g/dl (32-36) Platelet Count 258 K/uL (130-400) Mean Platelet Volume 9.9 fL (7.4-10.4) Neutrophils (%) (Auto) 76.6 % Lymphocytes (%) (Auto) 17.7 % Monocytes (%) (Auto) 4.2 % Eosinophils (%) (Auto) 1.0 % Basophils (%) (Auto) 0.2 % Neutrophils # (Auto) 7.60 K/uL (1.4-6.5) Lymphocytes # (Auto) 1.76 K/uL (1.2-3.4) Monocytes # (Auto) 0.42 K/uL (0.11-0.59) Eosinophils # (Auto) 0.10 K/uL (0-0.5) Basophils # (Auto) 0.02 K/uL (0-0.2) RDW Standard Deviation 48.1 fL (36.4-46.3) RDW Coefficient of Variation 14.1 % (11.5-14.5) Immature Granulocyte % (Auto) 0.3 % Immature Granulocyte # (Auto) 0.03 K/uL (0.00-0.02) Anion Gap 6.0 mmol/L (3-11) Est Creatinine Clear Calc Drug Dose 59.2 ml/min Estimated GFR () 91.4 Estimated GFR (Non- 78.8 BUN/Creatinine Ratio 11.4 (10-20) Calcium Level 8.7 mg/dl (8.5-10.1) Total Bilirubin 0.3 mg/dl (0.2-1) Direct Bilirubin < 0.1 mg/dl (0-0.2) Aspartate Amino Transf (AST/SGOT) 16 U/L (15-37) Alanine Aminotransferase (ALT/SGPT) 19 U/L (12-78) Alkaline Phosphatase 66 U/L (45-117) Total Creatine Kinase 45 U/L (26-192) Creatine Kinase MB < 0.5 ng/ml (0.5-3.6) Creatine Kinase MB Ratio (0-3.0) Troponin I < 0.015 ng/ml (0-0.045) Total Protein 7.8 gm/dl (6.4-8.2) Albumin 3.6 gm/dl (3.4-5.0) Labs reviewed by ED physician. Medications Administered Medications (Trade) Dose Ordered Sig/Trung Route Start Time Stop Time Status Last Admin Dose Admin Albuterol/ Ipratropium (Duoneb) 12 ml ONE ONCE INH 03/08/17 21:00 03/08/17 21:01 DC 03/08/17 21:08 12 ML Sodium Chloride 500 ml @ 999 mls/hr Q31M STAT IV 03/08/17 20:50 03/08/17 21:20 DC 03/08/17 21:14 999 MLS/HR Methylprednisolone Sodium Succinate (Solu-Medrol IV) 60 mg NOW STAT IV 03/08/17 21:42 03/08/17 21:44 DC 03/08/17 22:16 60 MG ED Course 2043: Past medical records reviewed. The patient was evaluated in room A11B. A complete history and physical examination was performed. 2049: Ordered Sodium Chloride 500 ml @ 999 mls/hr. 2099: Ordered DuoNeb 12 mL INH. 2141: Ordered Solu-Medrol 60 mg IV. 2249: Upon reexamination the patient is resting comfortably. I discussed results and treatment plan with the patient. She verbalizes agreement and understanding. The patient is ready for discharge. Medical Decision Etiologies such as viral syndrome, otitis, pharyngitis, pneumonia, influenza, meningitis, urinary tract infection, sepsis, bacteremia, as well as others were entertained. This is a 56-year-old female who presents emergency department after her boyfriend called the ambulance for her. Patient reports that she has no complaints but would like to be checked out. She has slight wheezing on physical examination. For this reason she was given a DuoNeb breathing treatment. She has a normal white blood cell count, her chest x-ray appears to be normal. Patient does not have the flu. Based on these findings I felt that the patient can be safely discharged home. Patient was in agreement with the treatment plan.. Patient was given Solu-Medrol in the emergency department and was given prednisone for home. Medication Reconcilliation Current Medication List: was personally reviewed by me Blood Pressure Screening Patient's blood pressure: Elevated blood pressure Blood pressure disposition: Elevated BP felt to be situational Impression Primary Impression: COPD (chronic obstructive pulmonary disease) Scribe Attestation The scribe's documentation has been prepared under my direction and personally reviewed by me in its entirety. I confirm that the note above accurately reflects all work, treatment, procedures, and medical decision making performed by me. Departure Information Dispostion Home / Self-Care Prescriptions Prednisone (Prednisone Tab) 20 Mg Tab 0 PO DAILY, #7 TAB 2 TABS DAILY FOR 2 DAYS, THEN 1 TAB DAILY FOR 2 DAYS, THEN 1/2 TAB DAILY FOR 2 DAYS. Prov: Avni Guzman MD 03/08/17 Referrals Anita Goodwin MD (PCP) Forms HOME CARE DOCUMENTATION FORM, IMPORTANT VISIT INFORMATION Patient Instructions COPD - [facility], [facility] Additional Instructions Use albuterol inhaler twice every 6 hours Problem Qualifiers Primary Impression: COPD (chronic obstructive pulmonary disease) COPD type: unspecified COPD Qualified Codes: J44.9 - Chronic obstructive pulmonary disease, unspecified
== END 2017-03-08 22:51 | disposition home or self-care (01) ==
LOC: EDBD 20:39 → C.EDA 20:40
DX: J44.9 Chronic obstructive pulmonary disease, unspecified (principal); M54.9 Dorsalgia, unspecified; G89.29 Other chronic pain; F32.9 Major depressive disorder, single episode, unspecified; F41.1 Generalized anxiety disorder; K21.9 Gastro-esophageal reflux disease without esophagitis; Z85.42 Personal history of malignant neoplasm of other parts of uterus; Z90.49 Acquired absence of other specified parts of digestive tract; Z90.710 Acquired absence of both cervix and uterus; Z80.9 Family history of malignant neoplasm, unspecified; Z83.3 Family history of diabetes mellitus; F17.210 Nicotine dependence, cigarettes, uncomplicated; Z79.899 Other long term (current) drug therapy

== ENCOUNTER → 2017-04-03 | Outpatient (CLI) | payer OTHER ==
[~2017-04-03] MED LIST changes: -DICY10CA12 PO; -ESCI10TA17 PO; +FLUT1INH; -GENT0.3S6 OP; +IPRA1AER2 INH; +IPRASOL4 INH; +MIRT45TA3 PO; +OMEP20TA PO; +PRED20TA2 PO; -PRLSR20 PO
== END | disposition home or self-care (01) ==
LOC: C.LABSPEC 11:14
PROVIDERS: ATTEND Family Medicine
DX: R30.0 Dysuria (principal)

== ENCOUNTER 2017-04-04 16:04 | Emergency (ER) | payer OTHER ==
[~2017-04-04] VITALS: Ht 157.5 cm; Wt 49.4 kg
[2017-04-04 16:05] VITALS: TEMP 36.7; Ht 157.5 cm; Wt 49.4 kg
[2017-04-04] MEDS ORDERED: MoRPHine SULFATE 4 MG/ML 1 ML CARP\\VIAL IV STA (16:14)
[2017-04-04] MEDS ORDERED: ONDANSETRON INJ 2 MG/ML 2 ML VIAL IV STA (16:14)
[2017-04-04] MEDS ORDERED: SODIUM CHLORIDE 0.9% 1000ML 1,000 ML IV STA (16:14)
[2017-04-04 16:41] LABS: BASO % 0.2 %; BASO ABS # 0.03 K/uL (0-0.2); EOS % 1.4 %; EOS ABS # 0.18 K/uL (0-0.5); HEMATOCRIT 38.7 % (37-47); HEMOGLOBIN 13.4 g/dL (12.0-16.0); IG# 0.01 K/uL (0.00-0.02); LYMPH % 13.3 %; LYMPH ABS # 1.67 K/uL (1.2-3.4); MEAN CELL VOLUME 91.9 fL (80-100); MEAN CORPUSCULAR HEMOGLOBIN 31.8 pg (25-34); MEAN CORPUSCULAR HGB CONC 34.6 g/dl (32-36); MEAN PLATELET VOLUME 10.5 fL (7.4-10.4); MONO % 4.5 %; MONO ABS # 0.57 K/uL (0.11-0.59); NEUT % 80.5 %; NEUT ABS # 10.09 K/uL (1.4-6.5); PLATELET COUNT 268 K/uL (130-400); RED CELL DISTRIBUTION WIDTH SD 46.4 fL (36.4-46.3); WHITE BLOOD COUNT 12.55 K/uL (4.8-10.8)
--- NOTE | 2017-04-04 16:59 | DIAGNOSTIC IMAGING REPORT ---
HEAD WITHOUT CONTRAST (CT) CLINICAL HISTORY: 56 years-old Female with MYRICK . Acute headache TECHNIQUE: Multiple axial CT images of the head were obtained without contrast. A dose lowering technique was utilized adhering to the principles of ALARA. COMPARISON: None. FINDINGS: No acute intracranial hemorrhage, midline shift, intracranial mass, hydrocephalus, territorial ischemia or abnormal extra-axial collection. Mild bifrontal cerebral atrophy. The calvarium is intact. The mastoid air cells, and middle ear cavities are clear. Mild mucosal thickening of the ethmoid air cells. Moderate sized left lexx bullosa. IMPRESSION: No acute intracranial abnormality. The above report was generated using voice recognition software. It may contain grammatical, syntax or spelling errors. Electronically signed by: Golden aMrmolejo M.D. 04/04/2017 4:57 PM Dictated Date/Time: 04/04/2017 4:44 PM
--- NOTE | 2017-04-04 17:01 | DIAGNOSTIC IMAGING REPORT ---
CT SCAN OF THE ABDOMEN AND PELVIS WITHOUT IV CONTRAST CLINICAL HISTORY: Generalized abdominal pain. COMPARISON STUDY: Abdominal CT dated 10/26/2015. TECHNIQUE: CT scan of the abdomen and pelvis is performed from the lung bases to the proximal femora. Images are reviewed in the axial, sagittal, and coronal planes. IV contrast was not administered for this examination as per the referring clinician. Note that the examination was performed in suboptimal fashion without oral and IV contrast. A dose lowering technique was utilized adhering to the principles of ALARA. CT DOSE: 892.34 mGy.cm FINDINGS: Lung bases: The heart is normal in size and without pericardial effusion. Emphysema is suspected. No airspace consolidation or pleural effusion is identified. Liver: The unenhanced liver is normal in size, contour, and attenuation. There is no intrahepatic biliary ductal dilatation. Gallbladder: Surgically absent noting clips in the gallbladder fossa. Spleen: Normal in size and attenuation. Pancreas: Unremarkable. Adrenal glands: Unremarkable. Kidneys: The unenhanced kidneys are normal in size and without hydronephrosis. There are 2 punctate nonobstructing right renal calculi. No left-sided kidney stones are seen. There is no evidence of contour deforming renal mass lesion. Abdominal vasculature: There is advanced atherosclerotic calcification and mild ectasia of the abdominal aorta. Bowel: There are postoperative changes from sigmoid colon resection with colocolonic anastomosis. No bowel obstruction is identified. Moderate constipation is observed. A small bowel anastomosis is present in the right pelvis. The appendix is not identified and reported surgically absent. Peritoneum: There is no intraperitoneal free air or abdominal ascites. Lymphadenopathy: None. Pelvic viscera: The bladder wall appears thickened. The uterus is surgically absent. No adnexal lesion is seen. A surgical clip is noted in the vagina. Skeletal structures: The skeletal structures are osteopenic. There is mild lumbosacral spondylosis. No lytic or blastic lesions are seen. IMPRESSION: 1. Suboptimal examination without oral and IV contrast. 2. There is circumferential bladder wall thickening. Correlate clinically and with urinalysis for evidence of cystitis. 3. Moderate constipation. No bowel obstruction is seen. 4. There are punctate nonobstructing right renal calculi. 5. Postoperative changes as above. Electronically signed by: Juan Daigle M.D. 04/04/2017 5:00 PM Dictated Date/Time: 04/04/2017 4:56 PM
[2017-04-04 17:02] LABS: ALBUMIN 3.4 gm/dl (3.4-5.0); CALCIUM 8.8 mg/dl (8.5-10.1); CREATININE 0.68 mg/dl (0.60-1.20)
[2017-04-04 17:14] LABS: TOTAL PROTEIN 7.9 gm/dl (6.4-8.2)
[2017-04-04] MEDS ORDERED: DiphenhydrAMINE HCL 50 MG/ML VIAL IV STA (17:45)
[2017-04-04] MEDS ORDERED: KETOROLAC TROMETHAMINE 30 MG/ML VIAL IV STA (17:45)
[2017-04-04 18:43] LABS: ISTAT CREATININE 0.6 mg/dl (0.6-1.3); ISTAT IONIZED CALCIUM 1.17 mmol/l (1.12-1.32); ISTAT POTASSIUM 3.9 mEq/L (3.3-5.0)
[2017-04-04 18:54] VITALS: BP 141/80; PULSE 78; O2SAT 98
--- NOTE | 2017-04-04 20:49 | EMERGENCY ROOM VISIT NOTE ---
History Report prepared by Jared: Vero Anderson Under the Supervision of: Dr. J Luis Galeana D.O. First contact with patient: 16:07 Chief Complaint: HEADACHE Stated Complaint: HEADACHE History of Present Illness The patient is a 56 year old female who presents to the Emergency Room with complaints of gradually worsening headache starting 7 hours ago. She presents to the ED by EMS. The headache is located up the back of her head and she reports pressure in the front. She does not frequently get headaches. She tried taking tramadol for her pain, but vomited it up. She also tried taking Zofran which she also vomited up. She has had intermittent abdominal pain over the past couple of days. She denies any fever, cough, rhinorrhea, sore throat, ear ache, numbness, weakness, or SOB. She fell several weeks ago and injured her ribs. She is still having some pain in her chest with deep breaths from the fall. She did not hit her head in the fall. She is having pain with urination for which she is following with urology. Her last bowel movement was a couple days ago. She states that she took some powder to stop her diarrhea. She has a history of cholecystectomy, appendectomy, and bowel resection. She has a history of bowel blockages. Source of History: patient Onset: 7 hours ago Position: head Quality: pressure Timing: worsening Associated Symptoms: + vomiting, + abdominal pain, No fevers, No sorethroat , No cough, No SOB, No weakness, No numbness Review of Systems See HPI for pertinent positives & negatives. A total of 10 systems reviewed and were otherwise negative. Past Medical & Surgical Medical Problems: (1) COPD (chronic obstructive pulmonary disease) (2) Depression (3) Generalized anxiety disorder (4) GERD (gastroesophageal reflux disease) (5) History of diverticulitis (6) Hx-Uterus Malignancy Nec (7) Small bowel obstruction Surgical Problems: (1) H/O colonoscopy (2) History of bowel resection (3) History of hysterectomy (4) Hx of dilation and curettage (5) Hx of hernia repair (6) Hx of laparoscopy (7) S/P exploratory laparotomy Family History Cancer Diabetes mellitus Lung disease Social History Smoking Status: Light Tobacco Smoker Alcohol Use: none Drug Use: none Marital Status: in relationship Housing Status: lives with significant other Occupation Status: unemployed Current/Historical Medications Scheduled Cholestyramine (Bulk) (Cholestyramine), 1 PKT PO DAILY Ipratropium-Albuterol (Combivent Respimat), 1 PUFF INH QID Mirtazapine (Mirtazapine), 45 MG PO HS Scheduled PRN Lorazepam (Ativan), 0.5 MG PO TID PRN for Anxiety Ondansetron Hcl (Zofran), 4 MG PO TID PRN for Nausea Tramadol (Ultram), 1 TAB PO TID PRN for Pain Allergies Coded Allergies: No Known Allergies (Verified , 04/04/17) Physical Exam Vital Signs Date Time Temp Pulse Resp B/P (MAP) Pulse Ox O2 Delivery O2 Flow Rate FiO2 04/04/17 18:54 78 18 141/80 98 Room Air 04/04/17 18:01 82 18 147/74 97 Room Air 04/04/17 16:53 82 18 136/76 97 Room Air 04/04/17 16:19 81 04/04/17 16:05 36.7 99 16 138/79 97 Room Air Physical Exam GENERAL: Sitting up in bed, disheveled, no acute distress, non-toxic EYE EXAM: normal conjunctiva. PERRL and EOM's intact. OROPHARYNX: no exudate, no erythema, lips, buccal mucosa, and tongue normal and mucous membranes are moist NECK: supple, no nuchal rigidity, no adenopathy, acute reproducible tenderness at the base of the OA. LUNGS: Clear to auscultation. Normal chest wall mechanics HEART: no murmurs, S1 normal and S2 normal ABDOMEN: abdomen soft, non-tender, normo-active bowel sounds, no masses, no rebound or guarding. BACK: Back is symmetrical on inspection and there is no deformity, no midline tenderness, no CVA tenderness. SKIN: no rashes and no bruising UPPER EXTREMITIES: upper extremities are grossly normal. LOWER EXTREMITIES: No pitting edema. NEURO EXAM: Normal sensorium, cranial nerves II-XII intact, normal speech, no weakness of arms, no weakness of legs. No drift. Finger to nose intact. Gross sensation intact. Rapid alternating movements of the upper extremities intact. Medical Decision & Procedures ER Provider Diagnostic Interpretation: Radiology results as stated below per my review and the radiologist's interpretation: CT SCAN OF THE ABDOMEN AND PELVIS WITHOUT IV CONTRAST CLINICAL HISTORY: Generalized abdominal pain. COMPARISON STUDY: Abdominal CT dated 10/26/2015. TECHNIQUE: CT scan of the abdomen and pelvis is performed from the lung bases to the proximal femora. Images are reviewed in the axial, sagittal, and coronal planes. IV contrast was not administered for this examination as per the referring clinician. Note that the examination was performed in suboptimal fashion without oral and IV contrast. A dose lowering technique was utilized adhering to the principles of ALARA. CT DOSE: 892.34 mGy.cm FINDINGS: Lung bases: The heart is normal in size and without pericardial effusion. Emphysema is suspected. No airspace consolidation or pleural effusion is identified. Liver: The unenhanced liver is normal in size, contour, and attenuation. There is no intrahepatic biliary ductal dilatation. Gallbladder: Surgically absent noting clips in the gallbladder fossa. Spleen: Normal in size and attenuation. Pancreas: Unremarkable. Adrenal glands: Unremarkable. Kidneys: The unenhanced kidneys are normal in size and without hydronephrosis. There are 2 punctate nonobstructing right renal calculi. No left-sided kidney stones are seen. There is no evidence of contour deforming renal mass lesion. Abdominal vasculature: There is advanced atherosclerotic calcification and mild ectasia of the abdominal aorta. Bowel: There are postoperative changes from sigmoid colon resection with colocolonic anastomosis. No bowel obstruction is identified. Moderate constipation is observed. A small bowel anastomosis is present in the right pelvis. The appendix is not identified and reported surgically absent. Peritoneum: There is no intraperitoneal free air or abdominal ascites. Lymphadenopathy: None. Pelvic viscera: The bladder wall appears thickened. The uterus is surgically absent. No adnexal lesion is seen. A surgical clip is noted in the vagina. Skeletal structures: The skeletal structures are osteopenic. There is mild lumbosacral spondylosis. No lytic or blastic lesions are seen. IMPRESSION: 1. Suboptimal examination without oral and IV contrast. 2. There is circumferential bladder wall thickening. Correlate clinically and with urinalysis for evidence of cystitis. 3. Moderate constipation. No bowel obstruction is seen. 4. There are punctate nonobstructing right renal calculi. 5. Postoperative changes as above. Electronically signed by: Juan Daigle M.D. 04/04/2017 5:00 PM Dictated Date/Time: 04/04/2017 4:56 PM HEAD WITHOUT CONTRAST (CT) CLINICAL HISTORY: 56 years-old Female with MYRICK . Acute headache TECHNIQUE: Multiple axial CT images of the head were obtained without contrast. A dose lowering technique was utilized adhering to the principles of ALARA. COMPARISON: None. FINDINGS: No acute intracranial hemorrhage, midline shift, intracranial mass, hydrocephalus, territorial ischemia or abnormal extra-axial collection. Mild bifrontal cerebral atrophy. The calvarium is intact. The mastoid air cells, and middle ear cavities are clear. Mild mucosal thickening of the ethmoid air cells. Moderate sized left lexx bullosa. IMPRESSION: No acute intracranial abnormality. The above report was generated using voice recognition software. It may contain grammatical, syntax or spelling errors. Electronically signed by: Golden Marmolejo M.D. 04/04/2017 4:57 PM Dictated Date/Time: 04/04/2017 4:44 PM Laboratory Results 04/04/17 16:20 Red Blood Count 4.21, Mean Corpuscular Volume 91.9, Mean Corpuscular Hemoglobin 31.8, Mean Corpuscular Hemoglobin Concent 34.6, Mean Platelet Volume 10.5, Neutrophils (%) (Auto) 80.5, Lymphocytes (%) (Auto) 13.3, Monocytes (%) (Auto) 4.5, Eosinophils (%) (Auto) 1.4, Basophils (%) (Auto) 0.2, Neutrophils # (Auto) 10.09, Lymphocytes # (Auto) 1.67, Monocytes # (Auto) 0.57, Eosinophils # (Auto) 0.18, Basophils # (Auto) 0.03 04/04/17 16:20 Test 04/04/17 16:20 04/04/17 18:30 White Blood Count 12.55 K/uL (4.8-10.8) Red Blood Count 4.21 M/uL (4.2-5.4) Hemoglobin 13.4 g/dL (12.0-16.0) Hematocrit 38.7 % (37-47) Mean Corpuscular Volume 91.9 fL (80-100) Mean Corpuscular Hemoglobin 31.8 pg (25-34) Mean Corpuscular Hemoglobin Concent 34.6 g/dl (32-36) Platelet Count 268 K/uL (130-400) Mean Platelet Volume 10.5 fL (7.4-10.4) Neutrophils (%) (Auto) 80.5 % Lymphocytes (%) (Auto) 13.3 % Monocytes (%) (Auto) 4.5 % Eosinophils (%) (Auto) 1.4 % Basophils (%) (Auto) 0.2 % Neutrophils # (Auto) 10.09 K/uL (1.4-6.5) Lymphocytes # (Auto) 1.67 K/uL (1.2-3.4) Monocytes # (Auto) 0.57 K/uL (0.11-0.59) Eosinophils # (Auto) 0.18 K/uL (0-0.5) Basophils # (Auto) 0.03 K/uL (0-0.2) RDW Standard Deviation 46.4 fL (36.4-46.3) RDW Coefficient of Variation 14.0 % (11.5-14.5) Immature Granulocyte % (Auto) 0.1 % Immature Granulocyte # (Auto) 0.01 K/uL (0.00-0.02) Est Creatinine Clear Calc Drug Dose 72.0 ml/min Estimated GFR () 113.3 Estimated GFR (Non- 97.8 BUN/Creatinine Ratio 11.2 (10-20) Calcium Level 8.8 mg/dl (8.5-10.1) Total Bilirubin 0.5 mg/dl (0.2-1) Direct Bilirubin mg/dl (0-0.2) Aspartate Amino Transf (AST/SGOT) U/L (15-37) Alanine Aminotransferase (ALT/SGPT) 16 U/L (12-78) Alkaline Phosphatase 65 U/L (45-117) Total Protein 7.9 gm/dl (6.4-8.2) Albumin 3.4 gm/dl (3.4-5.0) Lipase 71 U/L (73-393) Bedside Hemoglobin 11.9 g/dl (12.0-16.0) Bedside Hematocrit 35 % (37-47) Bedside Sodium 142 mEq/L (135-144) Bedside Potassium 3.9 mEq/L (3.3-5.0) Bedside Chloride 107 mEq/L (101-112) Bedside Total CO2 23 mEq/l (24-31) Anion Gap 17.0 mmol/L (16-25) Bedside Blood Urea Nitrogen 5 mg/dl (7-18) Bedside Creatinine 0.6 mg/dl (0.6-1.3) Bedside Glucose (other) 108 mg/dl (70-99) Bedside Ionized Calcium (Suzanne) 1.17 mmol/l (1.12-1.32) Laboratory results per my review. Medications Administered Medications (Trade) Dose Ordered Sig/Trung Route Start Time Stop Time Status Last Admin Dose Admin Sodium Chloride 1,000 ml @ 999 mls/hr Q1H1M STAT IV 04/04/17 16:14 04/04/17 17:14 DC 04/04/17 16:56 999 MLS/HR Morphine Sulfate (MoRPHine SULFATE INJ) 4 mg NOW STAT IV 04/04/17 16:14 04/04/17 16:17 DC 04/04/17 16:57 4 MG Ondansetron HCl (Zofran Inj) 4 mg NOW STAT IV 04/04/17 16:14 04/04/17 16:17 DC 04/04/17 16:56 4 MG Ketorolac Tromethamine (Toradol Inj) 30 mg NOW STAT IV 04/04/17 17:45 04/04/17 17:46 DC 04/04/17 18:00 30 MG Diphenhydramine HCl (Benadryl Inj) 25 mg NOW STAT IV 04/04/17 17:45 04/04/17 17:46 DC 04/04/17 18:00 25 MG ED Course ED COURSE: Vital signs were reviewed and showed normal vitals. The patients medical record was reviewed The above diagnostic studies were performed and reviewed. ED treatments and interventions as stated above. 1608: The patient was evaluated in room B6. A complete history and physical examination was performed. 1614: Zofran Inj 4 mg IV, Morphine Sulfate 4 mg IV, NSS 1000 ml @ 999 mls/hr IV. 1742: I reevaluated the patient. She is feeling slightly better. She declines LP. 1745: Benadryl Inj 25 mg IV, Toradol Inj 30 mg IV. 1830: Upon reevaluation, the patient is resting comfortably. I discussed my findings with the patient and she understands and agrees with the treatment plan. Based on the patients age, coexisting illnesses, exam and lab findings the decision to treat as an outpatient was made. The patient remained stable while under my care. The patient appeared well at the time of discharge. Medical Decision Differential Diagnosis includes but is not limited to headache, tension headache , cluster headache, migraine, subarachnoid hemorrhage, meningitis, mass, central venous thrombus, concussion, trauma and epidural/subdural hemorrhage. Patient is a 56-year-old female who presents to ER for headache. She has also had some nausea and intermittent vomiting and abdominal pain over the past several days. Her abdominal exam is completely benign. Does have multiple abdominal surgeries. Labs show a mildly stenosis. BMP along with LFTs, bilirubin and lipase is unremarkable. CT of the abdomen shows no obvious obstruction or infection. CT of the head was negative. Offered LP as she was having vomiting with these symptoms but she declined. Risk and benefits were explained. She was given Toradol, Benadryl, fluids and IV morphine. She felt significant better. She was discharged follow-up as an outpatient. Discussed with Pt concerning signs and symptoms to watch out for. Pt was instructed to follow up with their PCP and discussed with the patient their option to return to the ED at anytime for persistent or worsening symptoms. The appropriate anticipatory guidance and out-patient management, including indications for return to the emergency department, were explained at length to the patient and understood. Medication Reconcilliation Current Medication List: was personally reviewed by me Blood Pressure Screening Patient's blood pressure: Normal blood pressure Blood pressure disposition: Did not require urgent referral Impression Primary Impression: Headache Scribe Attestation The scribe's documentation has been prepared under my direction and personally reviewed by me in its entirety. I confirm that the note above accurately reflects all work, treatment, procedures, and medical decision making performed by me. Departure Information Dispostion Home / Self-Care Referrals Anita Goodwin MD (PCP) Forms HOME CARE DOCUMENTATION FORM, IMPORTANT VISIT INFORMATION Patient Instructions ED Cephalgia Unspecified, [facility] Additional Instructions Please follow up with your primary care doctor with in the next 24 hours. Any worsening of your symptoms, please return to the ED immediately. This includes any fevers greater than 100.4, worsening pain, chest pain, shortness breath, persistent nausea, vomiting, unable to eat or drink, or any other concerning signs or symptoms from your standpoint. You were given medications during this visit that will inhibit your ability to drive, operate machinery and work. Please do NOT drive, operate machinery, drink alcohol or work for the next 12hrs. Please take Motrin or Tylenol as needed for pain. Problem Qualifiers Primary Impression: Headache Headache type: unspecified Headache chronicity pattern: acute headache Intractability: not intractable Qualified Codes: R51 - Headache
== END 2017-04-04 18:56 | disposition home or self-care (01) ==
LOC: EDBD 16:04 → C.EDB 16:06
DX: R51 Headache (principal); J44.9 Chronic obstructive pulmonary disease, unspecified; F32.9 Major depressive disorder, single episode, unspecified; F41.9 Anxiety disorder, unspecified; K21.9 Gastro-esophageal reflux disease without esophagitis; Z83.3 Family history of diabetes mellitus; F17.200 Nicotine dependence, unspecified, uncomplicated; K59.00 Constipation, unspecified

== ENCOUNTER → 2017-04-09 | Outpatient (CLI) | payer OTHER ==
[~2017-04-09] MED LIST changes: -FLUT1INH; -IPRASOL4 INH; -OMEP20TA PO; -PRED20TA2 PO
--- NOTE | 2017-04-09 12:26 | DIAGNOSTIC IMAGING REPORT ---
(RENAL)RETROPERITON COMP HISTORY: Hematuria R30.0 DysuriaPt with ongoing dysuria and pt reports hematuriaULT COMPARISON: None. FINDINGS: Right kidney: Maximum dimension 10.7 cm. No evidence for hydronephrosis Normal corticomedullary differentiation and cortical thickness. Left kidney: Maximum dimension 10.5 cm. No evidence for hydronephrosis Normal corticomedullary differentiation and cortical thickness. Bladder: Mild posterior bladder wall thickening. IMPRESSION: Normal renal ultrasound. Mild posterior bladder wall thickening The above report was generated using voice recognition software. It may contain grammatical, syntax or spelling errors. Electronically signed by: Javier Casiano M.D. 04/09/2017 12:25 PM Dictated Date/Time: 04/09/2017 12:23 PM
== END | disposition home or self-care (01) ==
LOC: C.ULTR 11:17
PROVIDERS: ATTEND Family Medicine
DX: R30.0 Dysuria (principal)

== ENCOUNTER → 2017-05-19 | Outpatient (CLI) | payer OTHER ==
--- NOTE | 2017-05-20 06:04 | PAP/PSG TECHNICIAN REPORT ---
[facility] Condenser Tube Tender Polysomnogram Report Study name: None Report date: 05/20/2017 Study date: 05/19/2017 Referring Physician: Pratima Soto PA-C, PA-C Name: JACK MALLORY Interpreting Physician: Monster Keith D.O. Date of : 1960 Condenser Tube Tender: HARSH Hyatt. Sex: Female Age: 56 StudyType: PSG Weight: 114 lbs Height: 56 years, Height 5' 2" Neck Circum: BMI: 20.85 Medications: Lorazepam 0.5mg( she has not had this for two weeks) Mirtazapine 45mg, Combivent Respimat 20-100mcg/act, Clobetasol Propionate 0.05%, Phenazopyridine HCL 100 mg and 200 mg, Omepazole 20 mg, Tramadol 50 mg, Oxygen 2 LPM, Ondansetron HCL 4 mg, Cholestyramine Powder, Dicyclomine HCL 10 mg Patient History Study started on room air with ETCO2 monitoring in room #6. 56 yr old female here tonight for a diagnostic psg. She had a recent overnight oximetry test that showed some hypoxemia. She is a smoker x 40years. She does not snore or have witnessed apnea, according to her boyfriend. She wakes up frequently at night to use the restroom. She stated that "I sleep about 2 hours a night for a month and then I sleep an entire day". She has a history of COPD, anxiety, former heavy ETOH, GERD, cervical cancer and several bowel resections. Her ES3/24. Neck circ=11.5inches. Parameters Monitored NPSG: E1-M2, E2-M1, Fp1-M2, Fp2-M1, F3-M2, F4-M2, F4-M1, C3-M2, C4-M2, C4-M1, O1-M2, O2-M2, O2-M1, T3-M2, T4-M1, P3-M2, P4-M1, CHIN1, CHIN2, HR, EKG, Legs, PFLOW, SNOR, FLOW, CFLOW, Tidal Volume, THOR, ABDO, SpO2, PLTH, CPRESS, ETCO2 Wave, ETCO2, pH Sleep Architecture Sleep Stages Time at Lights Off 10:18:39 PM STAGES Time (min.) TST (%) Time at Lights On 5:44:39 AM Wake 177.5 -- Total Recording Time (TRT) 446.00 min. N1 34.0 13 Total Sleep Period (TSP) 410.5 min. N2 162.5 61 Total Sleep Time (TST) 268.0min. N3 67.0 25 Awake Time 177.5 min. REM 4.5 2 Wake after Sleep Onset 142.5 min. Sleep Efficiency (SE) 60 % Sleep Onset Latency (LONNY) 35.5 min. Number of Stage 1 Shifts None Awakenings 24 Stage Changes 128 Number of REM periods 5 REM 4.5 2 REM Latency 365.5 min. NREM 263.5 98 Body Position Analysis Supine Right Left Side Prone Vertical Total Sleep Time (min.) 238.2 0.5 98.2 98.70 0.0 0.0 Total Sleep Time (%) 63% 0% 37% 37 0% N/A% Total Sleep Time REM (min.) 4.5 0.0 0.0 None 0.0 0.0 Total Sleep Time NREM (min.) 164.8 0.5 98.2 None 0.0 0.0 Intermittent Wake (min.) 68.9 36.0 72.7 None 0.0 0.0 Total Sleep Period (%) 50% None None None None None Arousals Myoclonus (PLM) * Events Count Index Events Count Index Spontaneous 45 10 Events Awake (PLMW) 157 53.1 Respiratory 1 0.4 Events Asleep w/ Arousal (PLMA) 16 3.6 PLM 16 4 Events Asleep w/o Arousal (PLMS) 75 16.8 Snoring 4 1 Total Asleep 91 20.4 Total 66 15 Total 248 33 Respiratory Analysis * CA OA MA CH H RERA Total Count 0 0 0 0 2 0 2 Index 0.0 0.0 0.0 0 0.4 0 0.4 Mean Duration 0.0 0.0 0.0 0.00 47.5 0.0 47.5 Longest Duration 0.0 0.0 0.0 0.00 0.0 0.0 49.6 Respiratory Event Summary Total Supine ~Supine Right Left Prone REM NREM Apneas Count 0 0 0 0 0 N/A 0 0 Index 0.0 0 0 0.0 0.0 N/A 0 0 Hypopneas (4% Desat) Count 2 2 0 0 0 N/A 0 2 Index 0.4 0.7 0 0.0 0.0 N/A 0.0 0.5 Apneas & All Hypopneas Count 2 2 0 0 0 N/A 0 2 Index 0.4 1 0 0 0 N/A 0.0 0.5 Respiratory Events (Customer Care Coordinator+All Hyp+RERA) Count 2 2 0 0 0 N/A 0 2 Index 0.4 1 0 0.0 0.0 N/A 0.0 0.5 Respiratory Related Arousal Count 1 2 0 0 0 N/A 0 2 Index 0.4 1 0 0 0 N/A 0 0 Snoring Analysis Supine Right Left Prone REM NREM Total Snore duration 2.7 min Snores count 47 0 21 N/A 2 66 68 Snore mean duration 2.4 Sec Snores index 17 0 13 N/A 26.7 15.0 15.2 TST with snoring (%) 1.0% SpO2 Analysis Total REM NREM Awake <50% 0.0 min. 0.0 min. 0.0 min. 0.0 min. 51 - 60% 0.0 min. 0.0 min. 0.0 min. 0.0 min. 61 - 70% 0.0 min. 0.0 min. 0.0 min. 0.0 min. 71 - 80% 77.6 min. 1.8 min. 49.3 min. 26.5 min. 81 - 90% 339.6 min. 2.7 min. 203.3 min. 133.7 min. 91 - 100% 12.2 min. 0.0 min. 10.9 min. 1.3 min. Average 85 80 85 85 Minimum SpO2 74 74 75 74 Desaturation Event Index 1.3 26.7 0.7 1.7 # Desat. Events below 89% 10 2 3 5 Time(%) with Saturation below 89% 83.6 1.0 55.0 27.6 Time(min.) with Saturation below 89% 358.8 4.5 236.0 118.3 Heart Rate Analysis End Tidal CO2 Analysis Min (bpm) Max (bpm) Average (bpm) TSP (mins) % of TSP Awake 41 90 77 Above 55 mmHg 0.0 0.0 NREM 66 91 75 50-55 mmHg 0.0 0.0 REM 74 82 79 45-50 mmHg 31.0 11.6 Overall 66 91 75 40-45 mmHg 25.8 9.6 35-40 mmHg 169.2 63.1 30-35 mmHg 41.5 15.5 Average ETCO2 0.3 Supplemental O2 Values Minimum O2 level: None Value Start Time End Time Condens[employer] Tube Tender Comments Ms. Mallory slept in the right, left and supine positions. No cardiac arrhythmia noted. Some leg movements were noted. No bruxism noted. Snoring was noted and scored as a 1 on a scale of 1 through 5. (0=no snoring, 5=snoring loud enough to be heard through a closed door or down the berg way). She awoke to use the restroom 2 times during the night. She stated that she slept about the same as usual. At 5:09 am her oxygen saturations were under 89% for 221.6minutes and her AHI was 0.8. A total of 3 lpm were needed to keep her oxygen level above 88% with a final AHI of 0.4. The final report will be interpreted and signed by a sleep physician. The completed physician report will then be placed in the patient medical record. Therapy (cm H2O) 0 TIB (min.) 445.5 TST (min.) 268.0 Sleep Onset (min.) 35.5 REM Onset From Sleep (min.) 365.5 Sleep Efficiency % 60 Wakefulness (%) 40 Wakefulness (min.) 177.5 NREM 1 (%) 13 NREM 1 (min.) 34.0 NREM 2 (%) 61 NREM 2 (min.) 162.5 NREM 3 (%) 25 NREM 3 (min.) 67.0 REM (%) 2 REM (min.) 4.5 # Arousals 66 Arousal Index 15 # Snore 68 Snore Index 15.2 AHI 0.4 AHI Supine 1 AHI Non-Supine 0 NREM AHI 0.5 REM AHI 0.0 RDI 0.4 # Obstructive Apnea 0 # Central Apnea 0 # Mixed Apnea 0 # Hypopneas 2 RERAs 0 Total Respiratory Events 2 Time Below SpO2 89% (min.) 240.5 Mean NREM SpO2 (%) 85 Mean REM SpO2 (%) 80 Mean Sleep SpO2 (%) 84 Min NREM SpO2 (%) 75 Min REM SpO2 (%) 74 Position Supine (min.) 238.2 Position Non-supine (min.) 98.7 LM Index Sleep 20.4 LM Index NREM 20.3 LM Index REM 26.7 Mean Heart Rate (bpm) 75 Min Heart Rate (bpm) 66
--- NOTE | 2017-05-24 11:56 | Sleep Study ---
Sleep Study Report Date of Service: 05/19/2017 Sleep Study Report CLINICAL DATA: The patient is a 56-year-old female who has nocturnal hypoxia, disturbed nocturnal sleep, headaches, and daytime sleepiness. This was an in-lab overnight polysomnography. SLEEP ARCHITECTURE: The sleep period time was 410.5 minutes. The total sleep time was 268 minutes. The sleep efficiency was moderately reduced to 60 percent. The sleep latency was prolonged to 35.5 minutes. Wake after sleep onset was prolonged to 142.5 minutes. The REM latency was severely prolonged to 365.5 minutes. There was only 1 brief REM. During the night. Sleep consisted of stage N1 13 percent, stage N2 61 percent, stage N3 25 percent, stage REM 2 percent. AROUSAL DATA: The patient had a total of 66 arousals including 45 spontaneous arousals, 1 respiratory arousal, 16 PLM arousals, and 4 snoring arousals. The arousal index was 15. PLM DATA: The patient had 91 periodic limb movements of sleep for a PLM index of 20.4. There were 16 arousals associated with limb movements for a PLM arousal index of 3.6. EKG: The underlying cardiac rhythm was normal sinus. The cardiac rates 66-91 beats per minute. The average heart rate was 75 beats per minute. No arrhythmia was noted. RESPIRATORY DATA: Patient had a total of only 2 respiratory events for the entire night. Both of these were hypopneas. Hypopneas were scored according to the 4 percent desaturation rule. The mean duration of the hypopneas was 47.5 seconds. The apnea-hypopnea index was only 0.4 events per hour. This suggest no significant sleep apnea. OXIMETRY DATA: The patient had an average saturation of 85 percent. The minimum saturation was 74 percent. There was a total of 358.8 minutes with saturations less than 89 percent. The end-tidal CO2 was measured during the night. There was a total of 31 minutes of sleep with end-tidal CO2 between 45 and 50. There was none higher than this. C++ QUANT DEVELOPER COMMENTS: The patient slept in the right, left, and supine positions. No cardiac arrhythmia noted. Some leg movements noted. No bruxism noted. Snoring was noted and scored as a 1 on a scale of 1 through 5. She awakened to use the restroom 2 times during the night. She stated that she slept about the same as usual. At 5:09 a.m. her oxygen saturations were under 89 percent for 221.6 minutes and her AHI was 0.8. Total of 3 liters nasal cannula were needed to keep her oxygen levels above 88 percent with a final AHI of 0.4. IMPRESSIONS: 1. No evidence of obstructive sleep apnea 2. Nocturnal hypoxia 3. Mild snoring 4. Periodic limb movement disorder COMMENTS: The patient had no sleep apnea. Her sleep efficiency was much lower than normal. She had very little REM sleep. She does take mirtazapine which can suppress REM sleep. Her oxygen saturations were low for most of the night. She is listed as having COPD. It is unknown what her sleep habits are. RECOMMENDATIONS: 1. The patient should continue wearing her nocturnal oxygen nightly 2. The patient should be advised the appropriate principles of sleep hygiene with particular emphasis on having a regular sleep-wake schedule and allowing approximately 7.5 hours of sleep per night. 3. Consideration is given to evaluation of a serum ferritin level in light of the leg movements. Copies To 1: Monster Keith DO; Pratima Soto PA-C; Anita Goodwin MD
== END | disposition home or self-care (01) ==
LOC: C.NEUR 20:00
PROVIDERS: ATTEND Physician Assistant
DX: R53.83 Other fatigue (principal); G47.00 Insomnia, unspecified; G47.34 Idiopathic sleep related nonobstructive alveolar hypoventilation

== ENCOUNTER 2017-05-28 18:02 | Emergency (ER) | payer OTHER ==
[~2017-05-28] VITALS: Ht 157.5 cm; Wt 47.4 kg
[2017-05-28 18:20] VITALS: Ht 157.5 cm; Wt 47.4 kg
[2017-05-28] MEDS ORDERED: ONDANSETRON INJ 2 MG/ML 2 ML VIAL IV STA (20:09)
[2017-05-28] MEDS ORDERED: MoRPHine SULFATE 4 MG/ML 1 ML CARP\\VIAL IV STA (20:09)
[2017-05-28 21:00] LABS: BASO % 0.3 %; BASO ABS # 0.03 K/uL (0-0.2); EOS % 2.5 %; EOS ABS # 0.24 K/uL (0-0.5); HEMATOCRIT 38.7 % (37-47); HEMOGLOBIN 13.3 g/dL (12.0-16.0); IG# 0.02 K/uL (0.00-0.02); LYMPH % 24.5 %; LYMPH ABS # 2.36 K/uL (1.2-3.4); MEAN CELL VOLUME 91.3 fL (80-100); MEAN CORPUSCULAR HEMOGLOBIN 31.4 pg (25-34); MEAN CORPUSCULAR HGB CONC 34.4 g/dl (32-36); MEAN PLATELET VOLUME 10.7 fL (7.4-10.4); MONO % 6.4 %; MONO ABS # 0.62 K/uL (0.11-0.59); NEUT % 66.1 %; NEUT ABS # 6.38 K/uL (1.4-6.5); PLATELET COUNT 275 K/uL (130-400); RED CELL DISTRIBUTION WIDTH SD 45.8 fL (36.4-46.3); WHITE BLOOD COUNT 9.65 K/uL (4.8-10.8)
[2017-05-28 21:19] LABS: ALBUMIN 3.8 gm/dl (3.4-5.0); ALT/SGPT 15 U/L (12-78); BLOOD UREA NITROGEN 9 mg/dl (7-18); CALCIUM 9.2 mg/dl (8.5-10.1); CARBON DIOXIDE 29 mmol/L (21-32); CREATININE 0.79 mg/dl (0.60-1.20); GLUCOSE 85 mg/dl (70-99); LIPASE 178 U/L (73-393); POTASSIUM 3.7 mmol/L (3.5-5.1); SODIUM 137 mmol/L (136-145)
[2017-05-28 21:22] LABS: ALKALINE PHOSPHATASE 76 U/L (45-117); AST/SGOT 15 U/L (15-37); TOTAL PROTEIN 8.2 gm/dl (6.4-8.2)
--- NOTE | 2017-05-28 21:47 | DIAGNOSTIC IMAGING REPORT ---
CT SCAN OF THE ABDOMEN AND PELVIS WITHOUT IV CONTRAST CLINICAL HISTORY: Generalized abdominal pain. COMPARISON STUDY: Abdominal CT scans dated 04/04/2017 and 10/26/2015. TECHNIQUE: CT scan of the abdomen and pelvis is performed from the lung bases to the proximal femora. Images are reviewed in the axial, sagittal, and coronal planes. IV contrast was not administered for this examination as per the referring clinician. Note that the examination was performed in significantly suboptimal fashion without oral and IV contrast. A dose lowering technique was utilized adhering to the principles of ALARA. CT DOSE: 232.07 mGy.cm FINDINGS: Lung bases: The heart is normal in size and without pericardial effusion. Emphysema is suspected. No airspace consolidation or pleural effusion is identified. Liver: The unenhanced liver is normal in size, contour, and attenuation. There is mild central intrahepatic biliary ductal dilatation. Gallbladder: Surgically absent noting clips in the gallbladder fossa. Spleen: Normal in size and attenuation. Pancreas: The unenhanced pancreas is grossly unremarkable. Adrenal glands: Unremarkable. Kidneys: The unenhanced kidneys are normal in size and without hydronephrosis. There are 2 punctate nonobstructing right renal calculi. No left-sided kidney stones are seen. There is no evidence of contour deforming renal mass lesion. Abdominal vasculature: There is advanced atherosclerotic calcification and mild ectasia of the abdominal aorta. Bowel: There are postoperative changes from sigmoid colon resection with colocolonic anastomosis. No bowel obstruction is identified. Moderate constipation is observed. A small bowel anastomosis is present in the right pelvis. The appendix is not identified and reported surgically absent. Peritoneum: There is no intraperitoneal free air or abdominal ascites. Lymphadenopathy: None. Pelvic viscera: The bladder wall appears thickened. The uterus is surgically absent. No adnexal lesion is seen. A surgical clip is noted in the vagina. Skeletal structures: The skeletal structures are osteopenic. There is mild lumbosacral spondylosis and scoliosis. No lytic or blastic lesions are seen. IMPRESSION: 1. Suboptimal examination without oral and IV contrast. 2. Circumferential bladder wall thickening is similar to previous. Correlate clinically and with urinalysis for evidence of cystitis. 3. Moderate constipation. No bowel obstruction is seen. 4. There are punctate nonobstructing right renal calculi. 5. Postoperative changes as above. Electronically signed by: Juan Daigle M.D. 05/28/2017 9:46 PM Dictated Date/Time: 05/28/2017 9:41 PM
[2017-05-28 22:54] VITALS: BP 145/64; PULSE 75; TEMP 36.9; O2SAT 95
--- NOTE | 2017-05-28 22:56 | EMERGENCY ROOM VISIT NOTE ---
History Report prepared by Jared: Joleen Crenshaw Under the Supervision of: Dr. Ruben Niño M.D. First contact with patient: 20:04 Chief Complaint: ABDOMINAL PAIN Stated Complaint: BAD STOMACH PAINS 3 OR 4 DAYS Nursing Triage Summary: Patient c/o of abdominal pain x 6 days. Patient reports "I was passing gas and now I am not. I've been nauseaus for the last 3 days and started throwing up today." Hx of bowel obstruction. History of Present Illness The patient is a 56 year old female who presents to the Emergency Room with complaints of persistent abdominal pain since May 23, 2017. She reports the pain seems to be coming from her intestines. She currently rates her pain an 8/ 10 in severity. She describes her pain as crampy. She has a history of bowel obstructions. She has not been able to pass gas starting today. She notes vomiting today. She denies any fevers. She notes pain with urination. She has not noted any abdominal bloating. Source of History: patient Onset: May 23, 2017 Position: abdomen Symptom Intensity: 8/10 Quality: cramping Timing: other (persistent) Associated Symptoms: + urinary symptoms (pain with urination), No fevers Review of Systems See HPI for pertinent positives & negatives. A total of 10 systems reviewed and were otherwise negative. Past Medical & Surgical Medical Problems: (1) COPD (chronic obstructive pulmonary disease) (2) Depression (3) Generalized anxiety disorder (4) GERD (gastroesophageal reflux disease) (5) History of diverticulitis (6) Hx-Uterus Malignancy Nec (7) Small bowel obstruction Surgical Problems: (1) H/O colonoscopy (2) History of bowel resection (3) History of hysterectomy (4) Hx of dilation and curettage (5) Hx of hernia repair (6) Hx of laparoscopy (7) S/P exploratory laparotomy Family History Cancer Diabetes mellitus Lung disease Social History Smoking Status: Current Every Day Smoker Alcohol Use: none Drug Use: none Marital Status: in relationship Housing Status: lives with significant other Occupation Status: unemployed Current/Historical Medications Scheduled Ipratropium-Albuterol (Combivent Respimat), 1 PUFF INH QID Mirtazapine (Mirtazapine), 45 MG PO HS Scheduled PRN Lorazepam (Ativan), 0.5 MG PO TID PRN for Anxiety Ondansetron Hcl (Zofran), 4 MG PO TID PRN for Nausea Tramadol (Ultram), 1 TAB PO TID PRN for Pain Allergies Coded Allergies: No Known Allergies (Verified , 05/28/17) Physical Exam Vital Signs Date Time Temp Pulse Resp B/P (MAP) Pulse Ox O2 Delivery O2 Flow Rate FiO2 05/28/17 21:35 86 18 148/78 95 Room Air 05/28/17 20:54 88 16 116/77 98 Room Air 05/28/17 18:20 36.9 87 18 120/73 97 Room Air Physical Exam Constitutional: Vital signs reviewed. Eyes: Pupils are equal round reactive to light. Conjunctiva are noninjected. ENT: Pharynx is clear without erythema or exudate. Mucous membranes are moist. Neck supple without meningeal signs. Respiratory: Clear to auscultation bilaterally. Breath sounds are equal bilaterally. Cardiovascular: Regular rate and rhythm. No rubs or gallops. GI: Soft, nondistended. Bowel sounds are present. Upper abdominal tenderness, no guarding. Musculoskeletal: No peripheral edema. No CVA tenderness. Integumentary: No cyanosis. Neurological: The patient is awake and alert. No focal deficits. Psychiatric: Normal affect. Medical Decision & Procedures ER Provider Diagnostic Interpretation: Radiology results as stated below per my review and the radiologist's interpretation: CT SCAN OF THE ABDOMEN AND PELVIS WITHOUT IV CONTRAST CLINICAL HISTORY: Generalized abdominal pain. COMPARISON STUDY: Abdominal CT scans dated 04/04/2017 and 10/26/2015. TECHNIQUE: CT scan of the abdomen and pelvis is performed from the lung bases to the proximal femora. Images are reviewed in the axial, sagittal, and coronal planes. IV contrast was not administered for this examination as per the referring clinician. Note that the examination was performed in significantly suboptimal fashion without oral and IV contrast. A dose lowering technique was utilized adhering to the principles of ALARA. CT DOSE: 232.07 mGy.cm FINDINGS: Lung bases: The heart is normal in size and without pericardial effusion. Emphysema is suspected. No airspace consolidation or pleural effusion is identified. Liver: The unenhanced liver is normal in size, contour, and attenuation. There is mild central intrahepatic biliary ductal dilatation. Gallbladder: Surgically absent noting clips in the gallbladder fossa. Spleen: Normal in size and attenuation. Pancreas: The unenhanced pancreas is grossly unremarkable. Adrenal glands: Unremarkable. Kidneys: The unenhanced kidneys are normal in size and without hydronephrosis. There are 2 punctate nonobstructing right renal calculi. No left-sided kidney stones are seen. There is no evidence of contour deforming renal mass lesion. Abdominal vasculature: There is advanced atherosclerotic calcification and mild ectasia of the abdominal aorta. Bowel: There are postoperative changes from sigmoid colon resection with colocolonic anastomosis. No bowel obstruction is identified. Moderate constipation is observed. A small bowel anastomosis is present in the right pelvis. The appendix is not identified and reported surgically absent. Peritoneum: There is no intraperitoneal free air or abdominal ascites. Lymphadenopathy: None. Pelvic viscera: The bladder wall appears thickened. The uterus is surgically absent. No adnexal lesion is seen. A surgical clip is noted in the vagina. Skeletal structures: The skeletal structures are osteopenic. There is mild lumbosacral spondylosis and scoliosis. No lytic or blastic lesions are seen. IMPRESSION: 1. Suboptimal examination without oral and IV contrast. 2. Circumferential bladder wall thickening is similar to previous. Correlate clinically and with urinalysis for evidence of cystitis. 3. Moderate constipation. No bowel obstruction is seen. 4. There are punctate nonobstructing right renal calculi. 5. Postoperative changes as above. Electronically signed by: Juan Daigle M.D. 05/28/2017 9:46 PM Dictated Date/Time: 05/28/2017 9:41 PM Laboratory Results 05/28/17 20:26 Red Blood Count 4.24, Mean Corpuscular Volume 91.3, Mean Corpuscular Hemoglobin 31.4, Mean Corpuscular Hemoglobin Concent 34.4, Mean Platelet Volume 10.7, Neutrophils (%) (Auto) 66.1, Lymphocytes (%) (Auto) 24.5, Monocytes (%) (Auto) 6.4, Eosinophils (%) (Auto) 2.5, Basophils (%) (Auto) 0.3, Neutrophils # (Auto) 6.38, Lymphocytes # (Auto) 2.36, Monocytes # (Auto) 0.62, Eosinophils # (Auto) 0.24, Basophils # (Auto) 0.03 05/28/17 20:26 Test 05/28/17 20:26 05/28/17 21:35 White Blood Count 9.65 K/uL (4.8-10.8) Red Blood Count 4.24 M/uL (4.2-5.4) Hemoglobin 13.3 g/dL (12.0-16.0) Hematocrit 38.7 % (37-47) Mean Corpuscular Volume 91.3 fL (80-100) Mean Corpuscular Hemoglobin 31.4 pg (25-34) Mean Corpuscular Hemoglobin Concent 34.4 g/dl (32-36) Platelet Count 275 K/uL (130-400) Mean Platelet Volume 10.7 fL (7.4-10.4) Neutrophils (%) (Auto) 66.1 % Lymphocytes (%) (Auto) 24.5 % Monocytes (%) (Auto) 6.4 % Eosinophils (%) (Auto) 2.5 % Basophils (%) (Auto) 0.3 % Neutrophils # (Auto) 6.38 K/uL (1.4-6.5) Lymphocytes # (Auto) 2.36 K/uL (1.2-3.4) Monocytes # (Auto) 0.62 K/uL (0.11-0.59) Eosinophils # (Auto) 0.24 K/uL (0-0.5) Basophils # (Auto) 0.03 K/uL (0-0.2) RDW Standard Deviation 45.8 fL (36.4-46.3) RDW Coefficient of Variation 14.0 % (11.5-14.5) Immature Granulocyte % (Auto) 0.2 % Immature Granulocyte # (Auto) 0.02 K/uL (0.00-0.02) Anion Gap 4.0 mmol/L (3-11) Est Creatinine Clear Calc Drug Dose 59.5 ml/min Estimated GFR () 97.0 Estimated GFR (Non- 83.7 BUN/Creatinine Ratio 11.4 (10-20) Calcium Level 9.2 mg/dl (8.5-10.1) Total Bilirubin 0.3 mg/dl (0.2-1) Direct Bilirubin < 0.1 mg/dl (0-0.2) Aspartate Amino Transf (AST/SGOT) 15 U/L (15-37) Alanine Aminotransferase (ALT/SGPT) 15 U/L (12-78) Alkaline Phosphatase 76 U/L (45-117) Total Protein 8.2 gm/dl (6.4-8.2) Albumin 3.8 gm/dl (3.4-5.0) Lipase 178 U/L (73-393) Urine Color YELLOW Urine Appearance CLEAR (CLEAR) Urine pH 6.5 (4.5-7.5) Urine Specific [place] 1.009 (1.000-1.030) Urine Protein NEG (NEG) Urine Glucose (UA) NEG (NEG) Urine Ketones NEG (NEG) Urine Occult Blood NEG (NEG) Urine Nitrite NEG (NEG) Urine Bilirubin NEG (NEG) Urine Urobilinogen NEG (NEG) Urine Leukocyte Esterase NEG (NEG) Laboratory results as reviewed by me. Medications Administered Medications (Trade) Dose Ordered Sig/Trung Route Start Time Stop Time Status Last Admin Dose Admin Morphine Sulfate (MoRPHine SULFATE INJ) 4 mg ONE STAT IV 05/28/17 20:09 05/28/17 20:10 DC 05/28/17 20:52 4 MG Ondansetron HCl (Zofran Inj) 4 mg NOW STAT IV 05/28/17 20:09 05/28/17 20:10 DC 05/28/17 20:51 4 MG ED Course 2004: The patient was evaluated in room B7. A complete history and physical exam was performed. 2008: Ordered Zofran 4 mg IV and Morphine Sulfate 4 mg IV 2215: I reassessed the patient at this time. She is resting comfortably. I discussed the results and treatment plan with the patient. Medical Decision This is a 56-year-old female who presents with abdominal pain. Differential diagnosis includes acute bowel obstruction, partial bowel obstruction, obstipation, constipation, fecal impaction. I did perform a limited focused review of portions of the patient's old chart on the electronic medical record. The patient has had no recent pertinent visits to this hospital. I did evaluate the patient as noted above. Patient is presenting with abdominal pain. She has not had a bowel movement in some time and is concerned she may have an obstruction. She does not have any significant tenderness or distention but she did vomit once. IV access was established. I did treat her with IV morphine and Zofran. I did order and personally review the patient's urine analysis as described above. There is no evidence of UTI. She does state that she has had chronic issues with urinary symptoms. She states she is followed by her doctor for these symptoms. I did order and review the patient' s blood work as noted in the electronic medical record. Her white blood cell count is not elevated. I did order a CT of the abdomen and pelvis. I did review the images myself as well as the radiology report as described above. There is no evidence of obstruction. She does have constipation. I did discuss the test results with the patient. She is feeling better currently. She was advised to use [id number] laxatives and to follow-up with her doctor. She was told return for any worsening symptoms. Medication Reconcilliation Current Medication List: was personally reviewed by me Blood Pressure Screening Patient's blood pressure: Normal blood pressure Impression Primary Impression: Upper abdominal pain Additional Impression: Constipation Scribe Attestation The scribe's documentation has been prepared under my direct and personally reviewed by me in its entirety. I confirm that the note above accurately reflects all work, treatment, procedures, and medical decision making performed by me. Departure Information Referrals Anita Goodwin MD (PCP) Patient Instructions [facility] Problem Qualifiers Additional Impression: Constipation Constipation type: unspecified constipation type Qualified Codes: K59.00 - Constipation, unspecified
== END 2017-05-28 22:30 | disposition home or self-care (01) ==
LOC: C.EDB 18:04
DX: R10.10 Upper abdominal pain, unspecified (principal); K59.00 Constipation, unspecified; J44.9 Chronic obstructive pulmonary disease, unspecified; F32.9 Major depressive disorder, single episode, unspecified; F41.9 Anxiety disorder, unspecified; F17.200 Nicotine dependence, unspecified, uncomplicated; Z85.42 Personal history of malignant neoplasm of other parts of uterus; Z83.3 Family history of diabetes mellitus

== ENCOUNTER → 2017-07-07 | Outpatient (CLI) | payer OTHER ==
[~2017-07-07] MED LIST changes: -CHOLPOW PO; +OPTIRAY 320 IV PRN
--- NOTE | 2017-07-07 14:02 | DIAGNOSTIC IMAGING REPORT ---
CT ABD/PELVIS IV AND ORAL CONT CLINICAL HISTORY: R63.4 Weight loss, [id number] COMPARISON STUDY: 05/28/2017 TECHNIQUE: Following the IV administration of 93 mL of Optiray-320, CT scan of the abdomen and pelvis was performed from the lung bases to the proximal femurs. Images are reviewed in the axial, sagittal, and coronal planes. IV contrast was administered without complication. A dose lowering technique was utilized adhering to the principles of ALARA. CT DOSE: 247.81 mGycm FINDINGS: Lower chest: The heart is normal in size and configuration, without pericardial effusion. The lung bases and pleural spaces are clear. Liver: The contrast-enhanced liver is normal in size, contour, and attenuation. There is no intrahepatic biliary ductal dilatation. The hepatic veins and portal veins are patent. Gallbladder: Surgically absent Spleen: Normal in size and attenuation. Pancreas: Unremarkable. Adrenal glands: Unremarkable. Kidneys: There is an 8 mm left renal cyst and 3 mm right renal cyst. Bowel: There are no transition zones indicate bowel obstruction. There is a rectal anastomosis. There is borderline bowel wall thickening in the region of the splenic flexure and rectum. Peritoneum: There is no intraperitoneal free air or abdominal ascites. Vasculature: The abdominal aorta is normal in course and caliber. Adenopathy: None. Pelvic viscera: There is diffuse bladder wall thickening. There is a 2 cm hypodense mass contiguous with the posterior bladder wall and vaginal fornix. This mass demonstrates rim enhancement. Likely diagnostic considerations include recurrent cervical carcinoma versus an abscess. A primary lesion arising the bladder wall is a possibility but is felt to be statistically less likely. Oncologic/gynecological follow-up is recommended. The uterus is surgically absent. Skeletal structures: No destructive osseous lesions are seen. IMPRESSION: 1. 2 cm hypodense mass contiguous with the posterior bladder wall and vaginal fornix. The mass is rim-enhancing. Likely diagnostic considerations include recurrent cervical carcinoma versus an abscess. Oncologic/gynecological follow-up is recommended. 2. No evidence of bowel obstruction. No evidence of free air 3. Borderline bowel wall thickening involving the splenic flexure and rectum. Electronically signed by: Carter Diaz M.D. 07/07/2017 2:01 PM Dictated Date/Time: 07/07/2017 1:50 PM
== END | disposition home or self-care (01) ==
LOC: C.CTS 13:15
PROVIDERS: ATTEND Physician Assistant
DX: R63.4 Abnormal weight loss (principal)

== ENCOUNTER 2018-08-05 15:43 | Inpatient (IN) ==
[2018-08-05] MEDS ORDERED: ONDANSETRON INJ 2 MG/ML 2 ML VIAL IV STA (16:27)
[2018-08-05] MEDS ORDERED: SODIUM CHLORIDE 0.9% 1000ML 1,000 ML IV ONE ×3 (16:27→19:08)
[2018-08-05] MEDS: MoRPHine SULFATE 4 MG/ML 1 ML CARP\\VIAL IV PRN ×2 (17:24→20:20)
[2018-08-05] MEDS ORDERED: IOVERSOL 100ml IV PRN (17:44)
--- NOTE | 2018-08-05 18:23 | CT Scan Report ---
CT abd pelvis IV con only CLINICAL HISTORY: abd pain and fever COMPARISON STUDY: 07/07/2017 TECHNIQUE: The patient was scanned in a dynamic helical fashion during intravenous administration of 94 cc of Optiray 320. A dose lowering technique was utilized adhering to the principles of ALARA. CT DOSE: 232.74 mGy.cm FINDINGS: Lower chest: The heart is normal in size and configuration, without pericardial effusion. The lung ba ses and pleural spaces are clear. Liver: The contrast-enhanced liver is normal in size, contour, and attenuation. There is no intrahepa tic biliary ductal dilatation. The hepatic veins and portal veins are patent. Gallbladder: Surgically absent. There is progressive common bile duct dilatation. The common bile atruro t measures up to 12 mm. Spleen: Top normal in size Pancreas: Unremarkable. Adrenal glands: Unremarkable. Kidneys: There are small bilateral renal cysts. There is been interval development of left-sided hydr onephrosis and hydroureter. A dilated ureter can be followed down to the inferior pelvic region. No b ladder calculi or distal ureteral calculi are visualized. Bowel: There are multiple fluid-filled bowel loops. There are scattered air-fluid levels. There are n o transition zones to indicate a focal bowel obstruction. There is borderline colonic wall thickening . There is lower rectal wall thickening with presacral edema. Peritoneum: There is no intraperitoneal free air or abdominal ascites. Vasculature: The abdominal aorta is normal in course and caliber. Adenopathy: None. Pelvic viscera: Evaluation the pelvis is difficult due to the lack of orally administered contrast. T he bladder is nearly empty. The vagina appears fluid-filled. There appear to be soft tissue nodules w ithin the region of the vaginal fornix. The indistinct soft tissue planes are at the level of the lef t renal transition zone. An inflammatory or neoplastic processes the pelvis resulting in left uretera l obstruction must be considered. Correlation with the patient's prior surgical history is recommende d. Skeletal structures: No destructive lesions are visualized IMPRESSION: 1. Multiple fluid-filled small bowel and colonic loops without evidence for a discrete transition zon e. The findings are suggestive of ileus. There is borderline diffuse colonic wall thickening, and mod erate lower rectal colonic wall thickening 2. Interval development of moderate left-sided hydronephrosis and hydroureter. No calculi identified. The site of obstruction is within the low pelvis, possibly secondary to an inflammatory or neoplasti c process. 3. Nonspecific nodularity in the region of the vaginal fornix. Neoplasm must be considered. Correlati on with direct visualization is recommended. 4. Interval development of common bile duct dilatation 5. Given the interval left-sided hydronephrosis, and the abnormal pelvic findings, both urologic cons ultation and gynecological oncology consultation is recommended in follow-up Electronically signed by: Carter Diaz M.D. 08/05/2018 6:21 PM
--- NOTE | 2018-08-05 18:23 | XRay Report ---
XR chest 1V portable CLINICAL HISTORY: Sepsis COMPARISON STUDY: 01/06/2018 FINDINGS: The cardiac and mediastinal contours are normal. There is no evidence of focal pulmonary co nsolidation. There is no evidence of failure. No pleural effusions are visualized.[ There is a left-s ided A-Port catheter. The tip projects over the superior vena cava. Underlying emphysema is suspected . IMPRESSION: No active disease in the chest. Electronically signed by: Carter Diaz M.D. 08/05/2018 6:22 PM
[2018-08-05 18:29] LABS: Hematocrit (blood only) 19.6 % (37-47); Hemoglobin 6.8 g/dL (12.0-16.0); Mean Corpuscular Hgb Conc 34.7 g/dL (32-36); Mean Corpuscular Volume 89.1 fL (80-100); Mean Platelet Volume 10.5 fL (7.4-10.4); Platelet Count 177 K/uL (130-400); RDW Coefficient of Variation 12.3 % (11.5-14.5); White Blood Count 0.44 K/uL (4.8-10.8)
[2018-08-05] MEDS ORDERED: LEVOFLOXACIN/D5W 750 MG/150 ML BAG IV STA (18:37)
[2018-08-05 18:47] LABS: Albumin Globulin Ratio 0.5 (0.9-2); BUN Creatinine Ratio 7.8 (10-20); Bilirubin,Total 0.5 mg/dl (0.2-1); C Reactive Protein 16.4 mg/dl (0-0.29); Calcium 7.8 mg/dl (8.5-10.1); Creatinine Clr Calc Pharmacy 37.1 ml/min; Est GFR (African American) 72.4; Est GFR (Non-African American) 62.5; Globulin 3.7 gm/dl (2.5-4.0); Magnesium 1.1 mg/dl (1.8-2.4); Potassium 2.6 mmol/L (3.5-5.1); Total Protein 5.7 gm/dl (6.4-8.2)
[2018-08-05 18:49] LABS: INR 1.4 (0.9-1.1); Partial Thromboplastin Ratio 1.4; Partial Thromboplastin Time 38.5 Seconds (21.0-31.0); Prothrombin Time 13.7 Seconds (9.0-12.0)
[2018-08-05] MEDS: CEFEPIME 2,000 MG/20 ML VIAL IV STA ×2 (19:30→20:20)
[2018-08-05] MEDS: POTASSIUM CHLORIDE / WTR 10 MEQ/100 ML PLCT IV SCH ×2 (19:31→20:49)
--- NOTE | 2018-08-05 19:48 | Emergency Department Note ---
Entered by Adenike Craft acting as a scribe for Alberto Vale DO History of Present Illness General Chief complaint: Fever Stated complaint: FEVER Time Seen by Provider: 08/05/18 16:20 Source: patient History of Present Illness Provider complaint: fever Onset (ago): hour(s) ([employer]) Location: head Maximum Pain Intensity: 8 Relieved By: + none Associated symptoms: + nausea/vomiting and + other (+constipation, -vaginal bleeding/discharge); no chest pain, no rash and no shortness of breath Treatments prior to arrival: other (Tylenol) The patient is a 57 year old female who presents to the Emergency Department with complaints of a fever. The patient states that she has a fever of 101 yesterday and had worsened today up to 102. The patient states that she e xperienced diarrhea yesterday and today is currently constipated. She states that she vomited all her medications that she consumed this morning. The patient is experiencing abdominal pain that she states feels like menstrual cramping and nausea. She also denies any urination problems, back pain, shortness of breath, chest pain, rashes or cellulitis and vaginal bleeding or discharge. The patient reports that she was diagnosed with cancer in December 2017 and she is currently going through her second round of chemotherapy. She states that prior to visit she called her oncologist and they said to take Tylenol and come to the ED. On the was her last chemotherapy treatment and her port is 3 weeks old. She also states that she has a surgical history of a hysterectomy and bowel resection caused from a herniated surgery. She states that she is a smoker. Home Medications Home Medications Medication Instructions Recorded Confirmed Type dexamethasone 4 mg PO DIRECTED 12/25/17 08/05/18 History dicyclomine 20 mg PO Q6 12/25/17 08/05/18 History lorazepam 1 mg PO TID PRN 12/25/17 08/05/18 History mirtazapine 45 mg PO HS 12/25/17 08/05/18 History morphine 15 mg PO Q12H 12/25/17 08/05/18 History olanzapine [Zyprexa] 5 mg PO HS 12/25/17 08/05/18 History omeprazole 20 mg PO BID 12/25/17 08/05/18 History oxycodone 5 mg PO Q6H PRN 12/25/17 08/05/18 History prochlorperazine maleate 10 mg PO Q6 PRN 12/25/17 08/05/18 History promethazine 25 mg PO Q6H PRN 12/25/17 08/05/18 History ipratropium-albuterol [Combivent 1 puff INHALATION QID 01/06/18 08/05/18 History Respimat] Allergies Allergy/AdvReac Type Severity Reaction Status Date / Time No Known Drug Allergies Allergy . Verified 08/05/18 16:19 Past Med/Surg History Medical History Cervical cancer COPD (chronic obstructive pulmonary disease) (Chronic) Generalized anxiety disorder (Chronic) Depression (Chronic) GERD (gastroesophageal reflux disease) (Chronic) Low back pain (Acute) Mood disorder (Acute) Alcohol overdose Headache History of diverticulitis Infection of venous access port Partial small bowel obstruction Recurrent ventral incisional hernia Sepsis Small bowel obstruction Vomiting Surgical History H/O colonoscopy "06/02/14- The examined portion of the ileum was normal. Normal mucosa in the entire examined colon. Fluid aspiration performed. Patent functional end-to-end colo-colonic anastomosis. Biopsies normal. " History of bowel resection "2004 - sigmoid resection " History of hysterectomy "2003" Hx of dilation and curettage Hx of hernia repair "2007- incisional hernia repair with mesh" Hx of laparoscopy "2008- with extensive adhesiolysis, laparoscopic incisional hernia repairs with with mesh" S/P exploratory laparotomy "with extensive lysis of adhesions; resection of colorectal anastamosis; stapled end to end colorectal anastomosis w/completion proctoscopy" Family History Other Cancer Diabetes Lung disease Social History Preferred Language: Polish Communication Ability: Effective Spanish Speaking Babysitter Required: Yes Beliefs That Will Affect Care: None marital status: Single Current Living Situation: Significant Other Other Information That Helps Us Care for You: No Feels Safe at Home: Yes Safety Concerns: Feels Safe At This Time Smoking Status: Current every day smoker Tobacco Type: cigarettes Cigarettes Per Day: 10 Do You Dip or Chew Tobacco: No Second Hand Exposure: No Hx Alcohol Use: Yes Hx Substance Use: No Review of Systems See HPI for pertinent positives & negatives. and A total of 10 systems reviewed and were otherwise negative Physical Exam Vital Signs Vital Signs - 24 hr 08/05/18 15:51 08/05/18 16:27 08/05/18 17:12 Temperature 36.6 C Temperature Source Oral Sepsis Recent Fever Within 48 Hours No Sepsis New/Unexplained Change in Mental Status No Sepsis Action Taken by Nursing No Action Required Pulse Rate 120 H 110 H Pulse Rate [Right Finger] 109 H Pulse Rate from SpO2 Sensor Respiratory Rate 16 18 16 Respiratory Effort / Characteristics Non-Labored Spontaneous Non-Labored Spontaneous Respiratory Depth Normal Normal Respiratory Pattern Regular Regular Blood Pressure 134/72 Blood Pressure [Right Arm] 136/65 Blood Pressure Mean 92 Blood Pressure Mean [Right Arm] 88 Blood Pressure Position Sitting Blood Pressure Position [Right Arm] Lying Pulse Oximetry 97 97 97 Oxygen Delivery Method Room Air Room Air Room Air 08/05/18 18:00 08/05/18 18:12 08/05/18 18:15 Temperature Temperature Source Sepsis Recent Fever Within 48 Hours Sepsis New/Unexplained Change in Mental Status Sepsis Action Taken by Nursing Pulse Rate 108 H 109 H 109 H Pulse Rate [Right Finger] Pulse Rate from SpO2 Sensor 108 H 109 H 109 H Respiratory Rate 22 20 16 Respiratory Effort / Characteristics Respiratory Depth Respiratory Pattern Blood Pressure 127/67 126/68 Blood Pressure [Right Arm] Blood Pressure Mean 87 87 Blood Pressure Mean [Right Arm] Blood Pressure Position Blood Pressure Position [Right Arm] Pulse Oximetry 97 97 97 Oxygen Delivery Method Room Air Room Air 08/05/18 18:20 08/05/18 18:30 08/05/18 18:31 Temperature Temperature Source Sepsis Recent Fever Within 48 Hours Sepsis New/Unexplained Change in Mental Status Sepsis Action Taken by Nursing Pulse Rate 113 H 117 H 116 H Pulse Rate [Right Finger] Pulse Rate from SpO2 Sensor 117 H 115 H Respiratory Rate 16 18 16 Respiratory Effort / Characteristics Respiratory Depth Respiratory Pattern Blood Pressure 131/74 Blood Pressure [Right Arm] Blood Pressure Mean 93 Blood Pressure Mean [Right Arm] Blood Pressure Position Blood Pressure Position [Right Arm] Pulse Oximetry 96 97 Oxygen Delivery Method Room Air Room Air Room Air 08/05/18 18:40 08/05/18 18:45 08/05/18 18:50 Temperature Temperature Source Sepsis Recent Fever Within 48 Hours Sepsis New/Unexplained Change in Mental Status Sepsis Action Taken by Nursing Pulse Rate 110 H 109 H 108 H Pulse Rate [Right Finger] Pulse Rate from SpO2 Sensor 110 H 109 H 108 H Respiratory Rate 17 20 18 Respiratory Effort / Characteristics Respiratory Depth Respiratory Pattern Blood Pressure 119/66 Blood Pressure [Right Arm] Blood Pressure Mean 83 Blood Pressure Mean [Right Arm] Blood Pressure Position Blood Pressure Position [Right Arm] Pulse Oximetry 96 95 95 Oxygen Delivery Method 08/05/18 19:00 08/05/18 19:01 08/05/18 19:15 Temperature Temperature Source Sepsis Recent Fever Within 48 Hours Sepsis New/Unexplained Change in Mental Status Sepsis Action Taken by Nursing Pulse Rate 108 H 107 H 108 H Pulse Rate [Right Finger] Pulse Rate from SpO2 Sensor 108 H 107 H 107 H Respiratory Rate 24 22 26 H Respiratory Effort / Characteristics Respiratory Depth Respiratory Pattern Blood Pressure 125/68 129/69 Blood Pressure [Right Arm] Blood Pressure Mean 87 89 Blood Pressure Mean [Right Arm] Blood Pressure Position Blood Pressure Position [Right Arm] Pulse Oximetry 96 95 96 Oxygen Delivery Method 08/05/18 19:30 Temperature Temperature Source Sepsis Recent Fever Within 48 Hours Sepsis New/Unexplained Change in Mental Status Sepsis Action Taken by Nursing Pulse Rate 107 H Pulse Rate [Right Finger] Pulse Rate from SpO2 Sensor 107 H Respiratory Rate 24 Respiratory Effort / Characteristics Respiratory Depth Respiratory Pattern Blood Pressure 132/73 Blood Pressure [Right Arm] Blood Pressure Mean 92 Blood Pressure Mean [Right Arm] Blood Pressure Position Blood Pressure Position [Right Arm] Pulse Oximetry 96 Oxygen Delivery Method GENERAL: Patient is awake, alert, and in no acute distress.Patient is anxious appearing. EYES: The conjunctivae are clear. The pupils are round and reactive. EARS, NOSE, MOUTH AND THROAT: The nose is without any evidence of any deformity. Mucous membranes are dry.Tongue is midline NECK: The neck is nontender and supple. RESPIRATORY: Diminished breath sounds on left base. There is no evidence of whe ezing or rales to auscultation. Scattered rhonchi. CARDIOVASCULAR: Tachycardic rate and rhythm noted. There no murmurs rubs or gallops normal S1 normal S2 GASTROINTESTINAL: The abdomen is soft and non distended. Bowel sounds are present in all quadrants. Lower abdominal tenderness to palpations. No guarding or rigdity. MUSCULOSKELETAL/EXTREMITIES: There is no evidence of gross deformity. Full range of motion is noted in the hips and shoulders. SKIN: There is no obvious evidence of any rash. There are no petechiae, pallor or cyanosis noted. NEUROLOGIC: Patient is awake alert and oriented x3. Course 1625: The patient was evaluated in room C9, and a complete history and physical examination were performed. 1844: I discussed the case with Dr. Leal- [facility] hospitalist, who accepted the patient for further evaluation. Administered Medications Albuterol (Combivent Respimat) 1 puffs INH QID [facility] Stop: 09/04/18 22:38 Last Admin: 08/06/18 08:40 Dose: 1 puffs Documented by: [id number] Admin: 08/05/18 23:29 Dose: 1 puffs Documented by: [id number] Enoxaparin Sodium (Lovenox) 40 mg SQ QAM JOCELYNE Stop: 09/05/18 08:59 Last Admin: 08/06/18 08:39 Dose: 40 mg Documented by: [id number] Acetaminophen (Ofirmev) 65 mls @ 200 mls/hr IV Q6H PRN PRN Reason: Fever Stop: 09/04/18 22:38 Last Infusion: 08/06/18 02:08 Dose: 0 mls/hr Documented by: [id number] Admin: 08/06/18 01:44 Dose: 200 mls/hr Documented by: [id number] Potassium Chloride/Dextrose/Sod Cl (D5nss + 20meq Kcl) 20 meq in 1,000 mls @ 80 mls/hr IV .[id number] JOCELYNE Stop: 09/04/18 22:59 Last Infusion: 08/06/18 07:52 Dose: 80 mls/hr Documented by: [id number] Infusion: 08/06/18 03:00 Dose: 0 mls/hr Documented by: [id number] Admin: 08/05/18 23:31 Dose: 80 mls/hr Documented by: [id number] Dexamethasone 4 mg/ Syringe 1 mls @ 1 mls/min IV QAM [facility] Stop: 09/05/18 08:59 Last Admin: 08/06/18 08:39 Dose: 1 mls/min Documented by: [id number] Ioversol (Optiray 320 100ml) 94 ml IV ONCE PRN PRN Reason: Interaction Checking Stop: 08/09/18 17:43 Last Admin: 08/05/18 17:44 Dose: 94 ml Documented by: [id number] Morphine Sulfate (Morphine Sulfate) 2 mg IV Q4H PRN PRN Reason: Pain Stop: 08/19/18 22:38 Last Admin: 08/06/18 08:42 Dose: 2 mg Documented by: [id number] Ondansetron HCl (Zofran) 4 mg IV Q4H PRN PRN Reason: Nausea Stop: 09/04/18 22:38 Last Admin: 08/05/18 23:02 Dose: 4 mg Documented by: [id number] Discontinued Medications Enoxaparin Sodium (Lovenox) 40 mg SQ NOW ONE Stop: 08/05/18 21:18 Last Admin: 08/05/18 23:27 Dose: 40 mg Documented by: [id number] Sodium Chloride (Nss 1000ml) 1,000 mls @ 999 mls/hr IV .Q1H1M ONE Stop: 08/05/18 17:27 Last Infusion: 08/05/18 18:34 Dose: 0 mls/hr Documented by: [id number] Admin: 08/05/18 17:14 Dose: 999 mls/hr Documented by: [id number] Levofloxacin/Dextrose (Levaquin/D5w) 750 mg in 150 mls @ 100 mls/hr IV NOW STA Stop: 08/05/18 20:06 Last Admin: 08/05/18 20:37 Dose: Not Given Documented by: [id number] Sodium Chloride (Nss 1000ml) 1,000 mls @ 999 mls/hr IV .Q1H1M ONE Stop: 08/05/18 19:37 Last Infusion: 08/05/18 20:16 Dose: 0 mls/hr Documented by: [id number] Admin: 08/05/18 18:48 Dose: 999 mls/hr Documented by: [id number] Cefepime HCl (Maxipime) 2,000 mg in 20 mls @ 5 mls/min IV NOW STA; Protocol Stop: 08/05/18 18:40 Last Admin: 08/05/18 20:20 Dose: 5 mls/min Documented by: [id number] Sodium Chloride (Nss 1000ml) 1,000 mls @ 999 mls/hr IV .Q1H1M ONE Stop: 08/05/18 20:08 Last Infusion: 08/05/18 20:50 Dose: 0 mls/hr Documented by: [id number] Admin: 08/05/18 19:44 Dose: 999 mls/hr Documented by: [id number] Potassium Chloride (K Dexter / Wtr) 10 meq in 100 mls @ 100 mls/hr IV Q1H JOCELYNE Stop: 08/05/18 21:14 Last Infusion: 08/05/18 21:56 Dose: 0 mls/hr Documented by: [id number] Admin: 08/05/18 20:49 Dose: 100 mls/hr Documented by: [id number] Infusion: 08/05/18 20:49 Dose: 0 mls/hr Documented by: [id number] Admin: 08/05/18 19:31 Dose: 100 mls/hr Documented by: [id number] Magnesium Sulfate/Dextrose (Magnesium Sulfate / D5w) 1 gm in 100 mls @ 100 mls/hr IV Q1H JOCELYNE Stop: 08/05/18 21:44 Last Infusion: 08/05/18 23:35 Dose: 0 mls/hr Documented by: [id number] Admin: 08/05/18 21:56 Dose: 100 mls/hr Documented by: [id number] Infusion: 08/05/18 21:55 Dose: 0 mls/hr Documented by: [id number] Admin: 08/05/18 20:49 Dose: 100 mls/hr Documented by: [id number] Morphine Sulfate (Morphine Sulfate) 4 mg IV Q15M PRN PRN Reason: Pain Stop: 08/19/18 16:30 Last Admin: 08/05/18 20:20 Dose: 4 mg Documented by: [id number] Admin: 08/05/18 17:24 Dose: 4 mg Documented by: [id number] Ondansetron HCl (Zofran) 4 mg IV NOW STA Stop: 08/05/18 16:28 Last Admin: 08/05/18 17:24 Dose: 4 mg Documented by: [id number] Medical Decision Making Differential Diagnosis Differentials include etiologies such as viral syndrome, otitis, pharyngitis, pneumonia, influenza, meningitis, urinary tract infection, sepsis, bacteremia, as well as others were entertained. Medical Records Attestation: I reviewed the patient's medical records. Home Medications Current Medication List: was personally reviewed by me Laboratory Data Attestation: I reviewed the patient's lab results. Result diagrams: 08/05/18 18:02 08/05/18 18:02 Lab Results 05/22/19 05/22/19 05/22/19 Range/Units 17:02 17:02 17:02 WBC Cancelled RBC Cancelled Hgb Cancelled Hct Cancelled MCV Cancelled MCH Cancelled MCHC Cancelled RDW Std Deviation Cancelled RDW Coeff of Matthew Cancelled Plt Count Cancelled MPV Cancelled Immature Gran % (Auto) Cancelled Neut % (Auto) Cancelled Lymph % (Auto) Cancelled Lamb % (Auto) Cancelled Eos % (Auto) Cancelled Baso % (Auto) Cancelled Immature Gran # (Auto) Cancelled Neut # (Auto) Cancelled Lymph # (Auto) Cancelled Lamb # (Auto) Cancelled Eos # (Auto) Cancelled Baso # (Auto) Cancelled Absolute Nucleated RBC Cancelled Nucleated RBC % (auto) Cancelled Neutrophils % (Manual) Cancelled Band Neutrophils % Cancelled Lymphocytes % (Manual) Cancelled Prolymphocyte % Cancelled Reactive Lymphs % (Man) Cancelled Monocytes % (Manual) Cancelled Eosinophils % (Manual) Cancelled Basophils % (Manual) Cancelled Metamyelocytes % (Man) Cancelled Myelocytes % (Man) Cancelled Promyelocytes % (Man) Cancelled Blast Cells % (Manual) Cancelled Plasma Cell % (Manual) Cancelled Other Cells % Cancelled Nucleated RBC % Cancelled Neutrophils # (Manual) Cancelled Band Neutrophils # Cancelled Total Absolute Neuts Cancelled Lymphocytes # (Manual) Cancelled Prolymphocyte # Cancelled Reactive Lymphs # Cancelled Total Abs Lymphocytes Cancelled Monocytes # (Manual) Cancelled Eosinophils # (Manual) Cancelled Basophils # (Manual) Cancelled Metamyelocytes # (Man) Cancelled Myelocytes # (Manual) Cancelled Promyelocytes # (Man) Cancelled Blast Cells # (Man) Cancelled Plasma Cell # (Manual) Cancelled Other Cells # Cancelled Nucleated RBCs # (Man) Cancelled Hypersegmented Neuts Cancelled Hyposegmented Neuts Cancelled Hypogranular Neuts Cancelled Large Granular Lymphs Cancelled # Lrg Granular Lymphs Cancelled Hairy Cells Cancelled Smudge Cells Cancelled Toxic Granulation Cancelled Toxic Vacuolation Cancelled Dohle Bodies Cancelled Hoda Rods Cancelled Platelet Estimate Cancelled Hypogranular Platelets Cancelled Clumped Platelets Cancelled Giant Platelets Cancelled Platelet Satelliting Cancelled RBC Morphology Cancelled Polychromasia Cancelled Hypochromasia Cancelled Poikilocytosis Cancelled Basophilic Stippling Cancelled Anisocytosis Cancelled Microcytosis Cancelled Macrocytosis Cancelled Spherocytes Cancelled Pappenheimer Bodies Cancelled Sickle Cells Cancelled Target Cells Cancelled Tear Drop Cells Cancelled Ovalocytes Cancelled Stomatocytes Cancelled Fong-Adel Bodies Cancelled Echinocytes Cancelled Acanthocytes (Spur) Cancelled Rouleaux Cancelled RBC Agglutinates Cancelled Schistocytes Cancelled RBC Morph Comment Cancelled ESR Cancelled Sezary Cell Cancelled PT Cancelled INR Cancelled APTT Cancelled PTT Ratio Cancelled Sodium Potassium Chloride Carbon Dioxide Anion Gap BUN Creatinine Est Cr Clr Drug Dosing Est GFR ( Amer) Est GFR (Non-Af Amer) BUN/Creatinine Ratio Glucose Lactate Calcium Magnesium Total Bilirubin AST ALT Alkaline Phosphatase C-Reactive Protein Total Protein Albumin Globulin Albumin/Globulin Ratio Procalcitonin Urine Color Urine Appearance (Clear) Urine pH (4.5-7.5) Ur Specific Melba (1.000-1.030) Urine Protein (Negative) Urine Glucose (UA) (Negative) Urine Ketones (Negative) Urine Blood (Negative) Urine Nitrite (Negative) Urine Bilirubin (Negative) Urine Urobilinogen (Negative) Ur Leukocyte Esterase (Negative) Urine WBC (Auto) (0-5) /hpf Urine RBC (Auto) (0-4) /hpf U Hyaline Cast (Auto) (0-5) /lpf U Epithel Cells (Auto) (0-5) /lpf Urine Bacteria (Auto) (Negative) Stl C. diff Tox B Gene (Neg) Stl C.difficile Tox A&B (Negative) 08/05/18 08/05/18 08/05/18 Range/Units 17:02 17:02 17:02 WBC RBC Hgb Hct MCV MCH MCHC RDW Std Deviation RDW Coeff of Matthew Plt Count MPV Immature Gran % (Auto) Neut % (Auto) Lymph % (Auto) Lamb % (Auto) Eos % (Auto) Baso % (Auto) Immature Gran # (Auto) Neut # (Auto) Lymph # (Auto) Lamb # (Auto) Eos # (Auto) Baso # (Auto) Absolute Nucleated RBC Nucleated RBC % (auto) Neutrophils % (Manual) Band Neutrophils % Lymphocytes % (Manual) Prolymphocyte % Reactive Lymphs % (Man) Monocytes % (Manual) Eosinophils % (Manual) Basophils % (Manual) Metamyelocytes % (Man) Myelocytes % (Man) Promyelocytes % (Man) Blast Cells % (Manual) Plasma Cell % (Manual) Other Cells % Nucleated RBC % Neutrophils # (Manual) Band Neutrophils # Total Absolute Neuts Lymphocytes # (Manual) Prolymphocyte # Reactive Lymphs # Total Abs Lymphocytes Monocytes # (Manual) Eosinophils # (Manual) Basophils # (Manual) Metamyelocytes # (Man) Myelocytes # (Manual) Promyelocytes # (Man) Blast Cells # (Man) Plasma Cell # (Manual) Other Cells # Nucleated RBCs # (Man) Hypersegmented Neuts Hyposegmented Neuts Hypogranular Neuts Large Granular Lymphs # Lrg Granular Lymphs Hairy Cells Smudge Cells Toxic Granulation Toxic Vacuolation Dohle Bodies Hoda Rods Platelet Estimate Hypogranular Platelets Clumped Platelets Giant Platelets Platelet Satelliting RBC Morphology Polychromasia Hypochromasia Poikilocytosis Basophilic Stippling Anisocytosis Microcytosis Macrocytosis Spherocytes Pappenheimer Bodies Sickle Cells Target Cells Tear Drop Cells Ovalocytes Stomatocytes Fong-Adel Bodies Echinocytes Acanthocytes (Spur) Rouleaux RBC Agglutinates Schistocytes RBC Morph Comment ESR Sezary Cell PT INR APTT PTT Ratio Sodium Cancelled Potassium Cancelled Chloride Cancelled Carbon Dioxide Cancelled Anion Gap Cancelled BUN Cancelled Creatinine Cancelled Est Cr Clr Drug Dosing Cancelled Est GFR ( Amer) Cancelled Est GFR (Non-Af Amer) Cancelled BUN/Creatinine Ratio Cancelled Glucose Cancelled Lactate Cancelled Calcium Cancelled Magnesium Cancelled Total Bilirubin Cancelled AST Cancelled ALT Cancelled Alkaline Phosphatase Cancelled C-Reactive Protein Cancelled Total Protein Cancelled Albumin Cancelled Globulin Cancelled Albumin/Globulin Ratio Cancelled Procalcitonin Cancelled Urine Color Urine Appearance (Clear) Urine pH (4.5-7.5) Ur Specific Melba (1.000-1.030) Urine Protein (Negative) Urine Glucose (UA) (Negative) Urine Ketones (Negative) Urine Blood (Negative) Urine Nitrite (Negative) Urine Bilirubin (Negative) Urine Urobilinogen (Negative) Ur Leukocyte Esterase (Negative) Urine WBC (Auto) (0-5) /hpf Urine RBC (Auto) (0-4) /hpf U Hyaline Cast (Auto) (0-5) /lpf U Epithel Cells (Auto) (0-5) /lpf Urine Bacteria (Auto) (Negative) Stl C. diff Tox B Gene (Neg) Stl C.difficile Tox A&B (Negative) 08/05/18 08/05/18 08/05/18 Range/Units 18:02 18:02 18:02 WBC RBC Hgb Hct MCV MCH MCHC RDW Std Deviation RDW Coeff of Matthew Plt Count MPV Immature Gran % (Auto) Neut % (Auto) Lymph % (Auto) Lamb % (Auto) Eos % (Auto) Baso % (Auto) Immature Gran # (Auto) Neut # (Auto) Lymph # (Auto) Lamb # (Auto) Eos # (Auto) Baso # (Auto) Absolute Nucleated RBC Nucleated RBC % (auto) Neutrophils % (Manual) Band Neutrophils % Lymphocytes % (Manual) Prolymphocyte % Reactive Lymphs % (Man) Monocytes % (Manual) Eosinophils % (Manual) Basophils % (Manual) Metamyelocytes % (Man) Myelocytes % (Man) Promyelocytes % (Man) Blast Cells % (Manual) Plasma Cell % (Manual) Other Cells % Nucleated RBC % Neutrophils # (Manual) Band Neutrophils # Total Absolute Neuts Lymphocytes # (Manual) Prolymphocyte # Reactive Lymphs # Total Abs Lymphocytes Monocytes # (Manual) Eosinophils # (Manual) Basophils # (Manual) Metamyelocytes # (Man) Myelocytes # (Manual) Promyelocytes # (Man) Blast Cells # (Man) Plasma Cell # (Manual) Other Cells # Nucleated RBCs # (Man) Hypersegmented Neuts Hyposegmented Neuts Hypogranular Neuts Large Granular Lymphs # Lrg Granular Lymphs Hairy Cells Smudge Cells Toxic Granulation Toxic Vacuolation Dohle Bodies Hoda Rods Platelet Estimate Hypogranular Platelets Clumped Platelets Giant Platelets Platelet Satelliting RBC Morphology Polychromasia Hypochromasia Poikilocytosis Basophilic Stippling Anisocytosis Microcytosis Macrocytosis Spherocytes Pappenheimer Bodies Sickle Cells Target Cells Tear Drop Cells Ovalocytes Stomatocytes Fong-Adel Bodies Echinocytes Acanthocytes (Spur) Rouleaux RBC Agglutinates Schistocytes RBC Morph Comment ESR Sezary Cell PT 13.7 H INR 1.4 H APTT 38.5 H PTT Ratio 1.4 Sodium 132 L Potassium 2.6 L Chloride 100 Carbon Dioxide 24 Anion Gap 8.0 BUN 8 Creatinine 1.00 Est Cr Clr Drug Dosing 37.1 Est GFR ( Amer) 72.4 Est GFR (Non-Af Amer) 62.5 BUN/Creatinine Ratio 7.8 L Glucose 98 Lactate 1.0 Calcium 7.8 L Magnesium 1.1 L Total Bilirubin 0.5 AST 10 L ALT 29 Alkaline Phosphatase 115 C-Reactive Protein 16.40 H Total Protein 5.7 L Albumin 2.0 L Globulin 3.7 Albumin/Globulin Ratio 0.5 L Procalcitonin Urine Color Urine Appearance (Clear) Urine pH (4.5-7.5) Ur Specific Melba (1.000-1.030) Urine Protein (Negative) Urine Glucose (UA) (Negative) Urine Ketones (Negative) Urine Blood (Negative) Urine Nitrite (Negative) Urine Bilirubin (Negative) Urine Urobilinogen (Negative) Ur Leukocyte Esterase (Negative) Urine WBC (Auto) (0-5) /hpf Urine RBC (Auto) (0-4) /hpf U Hyaline Cast (Auto) (0-5) /lpf U Epithel Cells (Auto) (0-5) /lpf Urine Bacteria (Auto) (Negative) Stl C. diff Tox B Gene (Neg) Stl C.difficile Tox A&B (Negative) 08/05/18 08/05/18 08/05/18 Range/Units 18:02 18:02 18:02 WBC 0.44 L* RBC 2.20 L Hgb 6.8 L* Hct 19.6 L* MCV 89.1 MCH 30.9 MCHC 34.7 RDW Std Deviation 40.0 RDW Coeff of Matthew 12.3 Plt Count 177 MPV 10.5 H Immature Gran % (Auto) Cancelled Neut % (Auto) Cancelled Lymph % (Auto) Cancelled Lamb % (Auto) Cancelled Eos % (Auto) Cancelled Baso % (Auto) Cancelled Immature Gran # (Auto) Cancelled Neut # (Auto) Cancelled Lymph # (Auto) Cancelled Lamb # (Auto) Cancelled Eos # (Auto) Cancelled Baso # (Auto) Cancelled Absolute Nucleated RBC Nucleated RBC % (auto) Neutrophils % (Manual) Cancelled Band Neutrophils % Cancelled Lymphocytes % (Manual) Cancelled Prolymphocyte % Cancelled Reactive Lymphs % (Man) Cancelled Monocytes % (Manual) Cancelled Eosinophils % (Manual) Cancelled Basophils % (Manual) Cancelled Metamyelocytes % (Man) Cancelled Myelocytes % (Man) Cancelled Promyelocytes % (Man) Cancelled Blast Cells % (Manual) Cancelled Plasma Cell % (Manual) Cancelled Other Cells % Cancelled Nucleated RBC % Cancelled Neutrophils # (Manual) Cancelled Band Neutrophils # Cancelled Total Absolute Neuts Cancelled Lymphocytes # (Manual) Cancelled Prolymphocyte # Cancelled Reactive Lymphs # Cancelled Total Abs Lymphocytes Cancelled Monocytes # (Manual) Cancelled Eosinophils # (Manual) Cancelled Basophils # (Manual) Cancelled Metamyelocytes # (Man) Cancelled Myelocytes # (Manual) Cancelled Promyelocytes # (Man) Cancelled Blast Cells # (Man) Cancelled Plasma Cell # (Manual) Cancelled Other Cells # Cancelled Nucleated RBCs # (Man) Cancelled Hypersegmented Neuts Cancelled Hyposegmented Neuts Cancelled Hypogranular Neuts Cancelled Large Granular Lymphs Cancelled # Lrg Granular Lymphs Cancelled Hairy Cells Cancelled Smudge Cells Cancelled Toxic Granulation Cancelled Toxic Vacuolation Cancelled Dohle Bodies Cancelled Hoda Rods Cancelled Platelet Estimate Hypogranular Platelets Cancelled Clumped Platelets Cancelled Giant Platelets Cancelled Platelet Satelliting Cancelled RBC Morphology Cancelled Polychromasia Cancelled Hypochromasia Cancelled Poikilocytosis Cancelled Basophilic Stippling Cancelled Anisocytosis Cancelled Microcytosis Cancelled Macrocytosis Cancelled Spherocytes Cancelled Pappenheimer Bodies Cancelled Sickle Cells Cancelled Target Cells Cancelled Tear Drop Cells Cancelled Ovalocytes Cancelled Stomatocytes Cancelled Fong-Adel Bodies Cancelled Echinocytes Cancelled Acanthocytes (Spur) Cancelled Rouleaux Cancelled RBC Agglutinates Cancelled Schistocytes Cancelled RBC Morph Comment Cancelled ESR 48 H Sezary Cell Cancelled PT INR APTT PTT Ratio Sodium Potassium Chloride Carbon Dioxide Anion Gap BUN Creatinine Est Cr Clr Drug Dosing Est GFR ( Amer) Est GFR (Non-Af Amer) BUN/Creatinine Ratio Glucose Lactate Calcium Magnesium Total Bilirubin AST ALT Alkaline Phosphatase C-Reactive Protein Total Protein Albumin Globulin Albumin/Globulin Ratio Procalcitonin 0.27 Urine Color Urine Appearance (Clear) Urine pH (4.5-7.5) Ur Specific Melba (1.000-1.030) Urine Protein (Negative) Urine Glucose (UA) (Negative) Urine Ketones (Negative) Urine Blood (Negative) Urine Nitrite (Negative) Urine Bilirubin (Negative) Urine Urobilinogen (Negative) Ur Leukocyte Esterase (Negative) Urine WBC (Auto) (0-5) /hpf Urine RBC (Auto) (0-4) /hpf U Hyaline Cast (Auto) (0-5) /lpf U Epithel Cells (Auto) (0-5) /lpf Urine Bacteria (Auto) (Negative) Stl C. diff Tox B Gene (Neg) Stl C.difficile Tox A&B (Negative) 08/05/18 08/05/18 Range/Units 20:00 20:00 WBC RBC Hgb Hct MCV MCH MCHC RDW Std Deviation RDW Coeff of Matthew Plt Count MPV Immature Gran % (Auto) Neut % (Auto) Lymph % (Auto) Lamb % (Auto) Eos % (Auto) Baso % (Auto) Immature Gran # (Auto) Neut # (Auto) Lymph # (Auto) Lamb # (Auto) Eos # (Auto) Baso # (Auto) Absolute Nucleated RBC Nucleated RBC % (auto) Neutrophils % (Manual) Band Neutrophils % Lymphocytes % (Manual) Prolymphocyte % Reactive Lymphs % (Man) Monocytes % (Manual) Eosinophils % (Manual) Basophils % (Manual) Metamyelocytes % (Man) Myelocytes % (Man) Promyelocytes % (Man) Blast Cells % (Manual) Plasma Cell % (Manual) Other Cells % Nucleated RBC % Neutrophils # (Manual) Band Neutrophils # Total Absolute Neuts Lymphocytes # (Manual) Prolymphocyte # Reactive Lymphs # Total Abs Lymphocytes Monocytes # (Manual) Eosinophils # (Manual) Basophils # (Manual) Metamyelocytes # (Man) Myelocytes # (Manual) Promyelocytes # (Man) Blast Cells # (Man) Plasma Cell # (Manual) Other Cells # Nucleated RBCs # (Man) Hypersegmented Neuts Hyposegmented Neuts Hypogranular Neuts Large Granular Lymphs # Lrg Granular Lymphs Hairy Cells Smudge Cells Toxic Granulation Toxic Vacuolation Dohle Bodies Hoda Rods Platelet Estimate Hypogranular Platelets Clumped Platelets Giant Platelets Platelet Satelliting RBC Morphology Polychromasia Hypochromasia Poikilocytosis Basophilic Stippling Anisocytosis Microcytosis Macrocytosis Spherocytes Pappenheimer Bodies Sickle Cells Target Cells Tear Drop Cells Ovalocytes Stomatocytes Fong-Adel Bodies Echinocytes Acanthocytes (Spur) Rouleaux RBC Agglutinates Schistocytes RBC Morph Comment ESR Sezary Cell PT INR APTT PTT Ratio Sodium Potassium Chloride Carbon Dioxide Anion Gap BUN Creatinine Est Cr Clr Drug Dosing Est GFR ( Amer) Est GFR (Non-Af Amer) BUN/Creatinine Ratio Glucose Lactate Calcium Magnesium Total Bilirubin AST ALT Alkaline Phosphatase C-Reactive Protein Total Protein Albumin Globulin Albumin/Globulin Ratio Procalcitonin Urine Color Yellow Urine Appearance Clear (Clear) Urine pH 7.0 (4.5-7.5) Ur Specific Melba > 1.045 H (1.000-1.030) Urine Protein 1+ H (Negative) Urine Glucose (UA) Negative (Negative) Urine Ketones Negative (Negative) Urine Blood 2+ H (Negative) Urine Nitrite Positive A (Negative) Urine Bilirubin Negative (Negative) Urine Urobilinogen Negative (Negative) Ur Leukocyte Esterase Negative (Negative) Urine WBC (Auto) 5-10 H (0-5) /hpf Urine RBC (Auto) 5-10 H (0-4) /hpf U Hyaline Cast (Auto) 1-5 (0-5) /lpf U Epithel Cells (Auto) >30 H (0-5) /lpf Urine Bacteria (Auto) 4+ H (Negative) Stl C. diff Tox B Gene Positive Cdiff Gene H (Neg) Stl C.difficile Tox A&B Negative Cdiff Toxin (Negative) Imaging Data Radiologist's Impression: Radiology results as stated below per my review and the radiologist's interpretation: CT abd pelvis IV con only CLINICAL HISTORY: abd pain and fever COMPARISON STUDY: 07/07/2017 TECHNIQUE: The patient was scanned in a dynamic helical fashion during intravenous administration of 94 cc of Optiray 320. A dose lowering technique was utilized adhering to the principles of ALARA. CT DOSE: 232.74 mGy.cm FINDINGS: Lower chest: The heart is normal in size and configuration, without pericardial effusion. The lung bases and pleural spaces are clear. Liver: The contrast-enhanced liver is normal in size, contour, and attenuation. There is no intrahepatic biliary ductal dilatation. The hepatic veins and portal veins are patent. Gallbladder: Surgically absent. There is progressive common bile duct dilatation. The common bile duct measures up to 12 mm. Spleen: Top normal in size Pancreas: Unremarkable. Adrenal glands: Unremarkable. Kidneys: There are small bilateral renal cysts. There is been interval deve lopment of left-sided hydronephrosis and hydroureter. A dilated ureter can be followed down to the inferior pelvic region. No bladder calculi or distal ureteral calculi are visualized. Bowel: There are multiple fluid-filled bowel loops. There are scattered air- fluid levels. There are no transition zones to indicate a focal bowel obstruction. There is borderline colonic wall thickening. There is lower rectal wall thickening with presacral edema. Peritoneum: There is no intraperitoneal free air or abdominal ascites. Vasculature: The abdominal aorta is normal in course and caliber. Adenopathy: None. Pelvic viscera: Evaluation the pelvis is difficult due to the lack of orally administered contrast. The bladder is nearly empty. The vagina appears fluid- filled. There appear to be soft tissue nodules within the region of the vaginal fornix. The indistinct soft tissue planes are at the level of the left renal transition zone. An inflammatory or neoplastic processes the pelvis resulting in left ureteral obstruction must be considered. Correlation with the patient's prior surgical history is recommended. Skeletal structures: No destructive lesions are visualized IMPRESSION: 1. Multiple fluid-filled small bowel and colonic loops without evidence for a discrete transition zone. The findings are suggestive of ileus. There is borderline diffuse colonic wall thickening, and moderate lower rectal colonic wall thickening 2. Interval development of moderate left-sided hydronephrosis and hydroureter. No calculi identified. The site of obstruction is within the low pelvis, possibly secondary to an inflammatory or neoplastic process. 3. Nonspecific nodularity in the region of the vaginal fornix. Neoplasm must be considered. Correlation with direct visualization is recommended. 4. Interval development of common bile duct dilatation 5. Given the interval left-sided hydronephrosis, and the abnormal pelvic findings, both urologic consultation and gynecological oncology consultation is recommended in follow-up Electronically signed by: Carter Diaz M.D. 08/05/2018 6:21 PM XR chest 1V portable CLINICAL HISTORY: Sepsis COMPARISON STUDY: 01/06/2018 FINDINGS: The cardiac and mediastinal contours are normal. There is no evidence of focal pulmonary consolidation. There is no evidence of failure. No pleural effusions are visualized.[ There is a left-sided A-Port catheter. The tip projects over the superior vena cava. Underlying emphysema is suspected. IMPRESSION: No active disease in the chest. Electronically signed by: Carter Diaz M.D. 08/05/2018 6:22 PM Blood Pressure Blood Pressure Findings: Normal blood pressure MDM Narrative The patient is a 57-year-old female who presented to the emergency department for an evaluation of fever and abdominal pain. The patient has a history of cervical cancer. She was recently treated with chemotherapy. The patient's exam did appear to be consistent with dehydration. She was treated with IV fluids in the emergency department. She was also treated with IV antibiotics for neutropenia as well as presumed urinary tract infection given the findings on CAT scan. It was difficult to obtain a urine from the patient as she was also having diarrhea. She also was unable to have a Santoro catheter placed because of severe neutropenia. I discussed the patient's laboratory and radiographic findings with her. I also discussed her case with the on-call [facility] hospitalist. They have agreed to evaluate the patient in the emergency department for further management and disposition. I also discussed her case with the on-call urologist. Given her neutropenia at this time it would be difficult to provide her with a ureteral stent. She was comfortable in making urine at this time. The patient was reevaluated multiple times. She was also treated with IV magnesium and IV potassium. Impression & Plan Neutropenic fever, Cervical cancer, Hydronephrosis, Diarrhea, Hypokalemia, Hypomagnesemia Discharge Plan Visit Data *Final* Discharge Date/Time: 08/05/18 22:04 Chief Complaint: Fever Stated Complaint: FEVER ED Provider: Alberto Vale Discharge Problem: Neutropenic fever, Cervical cancer, Hydronephrosis, Diarrhea, Hypokalemia, Hypomagnesemia Patient Disposition: Admitted As Inpatient Discharge Instructions Interventions: ED Discharge Assessment Last Done: 08/05/18 22:04 Discharge Problem: Cervical cancer Qualifiers: Malignant neoplasm of cervix location: unspecified location Qualified Code(s): C53.9 - Malignant neoplasm of cervix uteri, unspecified Hydronephrosis Qualifiers: Hydronephrosis type: unspecified Qualified Code(s): N13.30 - Unspecified hydronephrosis Diarrhea Qualifiers: Diarrhea type: unspecified type Qualified Code(s): R19.7 - Diarrhea, unspecified The scribe's documentation has been prepared under my direction and personally reviewed by me in its entirety. I confirm that the note above accurately reflects all work, treatment, procedures, and medical decision making performed by me.
[2018-08-05 20:42] LABS: Appearance Urine Clear (Clear); Bacteria Urine Automated 4+ (Negative); Bilirubin Urine Negative (Negative); Color Urine Yellow; Epithelial Cell Urine Auto >30 /lpf (0-5); Glucose Urine UA Negative (Negative); Ketones Urine Negative (Negative); Leukocyte Esterase Urine Negative (Negative); Nitrite Urine Positive (Negative); Protein Urine 1+ (Negative); Specific Gravity Urine > 1.045 (1.000-1.030); Urobilinogen Urine Negative (Negative)
[2018-08-05] MEDS: MAGNESIUM SULFATE / D5W 1 GM/100 ML BAG IV SCH ×2 (20:49→21:56)
[2018-08-05] MEDS ORDERED: ENOXAPARIN INJ 40 MG/0.4 ML SYR SQ ONE (21:17)
--- NOTE | 2018-08-05 21:44 | History & Physical Report ---
Date of Service August 05, 2018 Assessment & Plan (1) Neutropenic fever: 57-year-old female with a history of metastatic cervical cancer presents with neutropenic fever and with UTI/nephrolithiasis. Concern for intra- abdominal/pelvic mass-effect. Neutropenic fever, setting of chemotherapy for cervical cancer, squamous cell UA was significant for infection, evidence of nephrolithiasis/hydronephrosis on CT Neutropenic precautions, isolation, admit to MedSurg Cefepime started in the ED, continue Cervical cancer, metastatic SCC Diagnosed in 2002, status post hysterectomy bilateral salpingo-oophorectomy Recurrence in 2017, remnant of cervix into vaginal wall and bladder walldeferred surgical resection Been receiving chemotherapy since 2018completed a course in March of paclitaxel carboplatin Currently chemo course of Navelbine, 2 weeks on, one-week offlast administration was 07/28/2018 Consider oncology consultation and palliative consultation. Patient is currently a full code. Pain control, antiemetics UTI/nephrolithiasis, in the setting of cervical cancer with mets to the bladder Concern for tumor mass-effect Antibiotic coverage as above Consulting urology, appreciate recommendations Nausea/vomiting, signs of ileus on CT Converted as many medications as possible to IV We will keep the patient n.p.o. Not actively vomiting, continue with antiemetic Consider NG tube placement if the patient develops persistent vomiting Normal saline + D5+ potassium at 80 cc/h Patient on numerous QTC prolonging medications, recommend daily EKG [id number] smoker, current smoker Continue Combivent DVT prophylax Lovenox CODE STATUS Patient is a full code (2) Cervical cancer: (3) Hydronephrosis: (4) Hypokalemia: (5) Diarrhea: (6) Hypomagnesemia: (7) Tobacco use disorder: (8) Chronic pain syndrome: (9) Septicemia: History of Present Illness Primary Care Provider: Anita Goodwin MD 57-year-old female with a past medical history of cervical cancer presents with fevers for 1 day, ranging from 101-102. She discussed this with her oncologist today who suggested that she come to the emergency room. She does describe having lower abdominal pain at baseline, nausea/vomiting/diarrhea at baseline. She states that the symptoms not gotten worse over the past day and she is currently on a long list of antiemetics and pain medications. She reports having a cough at baseline for which she relates to her COPD. She states that she has urinary incontinence, but has not had any dysuria or hematuria. Patient lives with her boyfriend. She is currently on a course of chemotherapy, 2 weeks on/1 week off. Her last treatment was July 28. Review of systems Constitutional; fevers, chills as described above HEENT; no sore throat, runny nose CV; no chest pain, no palpitations Pulmonary; chronic cough is described above, no dyspnea Abdomen; bilateral lower abdominal pain, extends into her back, nausea/vomiting/diarrhea as described above Allergies Allergy/AdvReac Type Severity Reaction Status Date / Time No Known Drug Allergies Allergy . Verified 08/05/18 16:19 Home Medications Home Medications Medication Instructions Recorded Confirmed Type dexamethasone 4 mg PO DIRECTED 12/25/17 08/05/18 History dicyclomine 20 mg PO Q6 12/25/17 08/05/18 History lorazepam 1 mg PO TID PRN 12/25/17 08/05/18 History mirtazapine 45 mg PO HS 12/25/17 08/05/18 History morphine 15 mg PO Q12H 12/25/17 08/05/18 History olanzapine [Zyprexa] 5 mg PO HS 12/25/17 08/05/18 History omeprazole 20 mg PO BID 12/25/17 08/05/18 History oxycodone 5 mg PO Q6H PRN 12/25/17 08/05/18 History prochlorperazine maleate 10 mg PO Q6 PRN 12/25/17 08/05/18 History promethazine 25 mg PO Q6H PRN 12/25/17 08/05/18 History ipratropium-albuterol [Combivent 1 puff INHALATION QID 01/06/18 08/05/18 History Respimat] Past Med/Surg History Medical History Cervical cancer COPD (chronic obstructive pulmonary disease) (Chronic) Generalized anxiety disorder (Chronic) Depression (Chronic) GERD (gastroesophageal reflux disease) (Chronic) Low back pain (Acute) Mood disorder (Acute) Alcohol overdose Headache History of diverticulitis Infection of venous access port Partial small bowel obstruction Recurrent ventral incisional hernia Sepsis Small bowel obstruction Vomiting Surgical History H/O colonoscopy "06/02/14- The examined portion of the ileum was normal. Normal mucosa in the entire examined colon. Fluid aspiration performed. Patent functional end-to-end colo-colonic anastomosis. Biopsies normal. " History of bowel resection "2004 - sigmoid resection " History of hysterectomy "2003" Hx of dilation and curettage Hx of hernia repair "2007- incisional hernia repair with mesh" Hx of laparoscopy "2008- with extensive adhesiolysis, laparoscopic incisional hernia repairs with with mesh" S/P exploratory laparotomy "with extensive lysis of adhesions; resection of colorectal anastamosis; stapled end to end colorectal anastomosis w/completion proctoscopy" Family History Other Cancer Diabetes Lung disease Social History Preferred Language: Ghanaian Communication Ability: Effective Beliefs That Will Affect Care: None marital status: Single Current Living Situation: Significant Other Feels Safe at Home: Yes Smoking Status: Current every day smoker Tobacco Type: cigarettes Cigarettes Per Day: 10 Second Hand Exposure: No Hx Alcohol Use: No Hx Substance Use: No Review of Systems Review of Systems: All systems reviewed & are unremarkable except as noted in HPI & below Physical Exam Constitutional: + ill appearing, + thin and + cachectic; no acute distress Eyes: PERRL, conjunctivae normal, anicteric sclerae ENMT: external ear and nose normal, oropharynx normal Neck: trachea midline, no thyromegaly Respiratory: normal respiratory effort, lungs clear to auscultation Cardiovascular: RRR, no murmur, no edema Gastrointestinal (Abdomen): Inspection/Auscultation: abdomen not distended and + abnormal bowel sounds (hypoactive) Percussion/Palpation: + abdomen tender (lower quadrants ); no guarding Musculoskeletal: no cyanosis or clubbing, extremities motor strength 5/5 Skin: no rashes, warm and dry Neurologic: PERRL, EOMI, accommodation nl, no face palsy, no dysarthria Psychiatric: A+Ox3, euthymic affect Results & Data Vital Signs (Past 12 Hours) Vital Signs Temp Pulse Pulse Resp BP BP Pulse Ox 08/05/18 20:30 108 H 13 123/70 08/05/18 20:25 110 H 16 141/86 H 08/05/18 19:30 107 H 24 132/73 96 08/05/18 19:15 108 H 26 H 129/69 96 08/05/18 19:01 107 H 22 95 08/05/18 19:00 108 H 24 125/68 96 08/05/18 18:50 108 H 18 95 08/05/18 18:45 109 H 20 119/66 95 08/05/18 18:40 110 H 17 96 08/05/18 18:31 116 H 16 97 08/05/18 18:30 117 H 18 131/74 96 08/05/18 18:20 113 H 16 08/05/18 18:15 109 H 16 126/68 97 08/05/18 18:12 109 H 20 97 08/05/18 18:00 108 H 22 127/67 97 08/05/18 17:12 109 H 16 136/65 97 08/05/18 16:27 110 H 18 97 08/05/18 15:51 36.6 C 120 H 16 134/72 97 Diagnostic Findings XR chest 1V portable CLINICAL HISTORY: Sepsis COMPARISON STUDY: 01/06/2018 FINDINGS: The cardiac and mediastinal contours are normal. There is no evidence of focal pulmonary consolidation. There is no evidence of failure. No pleural effusions are visualized.[ There is a left-sided A-Port catheter. The tip projects over the superior vena cava. Underlying emphysema is suspected. IMPRESSION: No active disease in the chest. Electronically signed by: Carter Diaz M.D. 08/05/2018 6:22 PM Dictated: 08/05/181820 Transcribed: 08/05/181820 CT abd pelvis IV con only CLINICAL HISTORY: abd pain and fever COMPARISON STUDY: 07/07/2017 TECHNIQUE: The patient was scanned in a dynamic helical fashion during in travenous administration of 94 cc of Optiray 320. A dose lowering technique was utilized adhering to the principles of ALARA. CT DOSE: 232.74 mGy.cm FINDINGS: Lower chest: The heart is normal in size and configuration, without pericardial effusion. The lung bases and pleural spaces are clear. Liver: The contrast-enhanced liver is normal in size, contour, and attenuation. There is no intrahepatic biliary ductal dilatation. The hepatic veins and portal veins are patent. Gallbladder: Surgically absent. There is progressive common bile duct dilatation. The common bile duct measures up to 12 mm. Spleen: Top normal in size Pancreas: Unremarkable. Adrenal glands: Unremarkable. Kidneys: There are small bilateral renal cysts. There is been interval development of left-sided hydronephrosis and hydroureter. A dilated ureter can be followed down to the inferior pelvic region. No bladder calculi or distal ureteral calculi are visualized. Bowel: There are multiple fluid-filled bowel loops. There are scattered air- fluid levels. There are no transition zones to indicate a focal bowel obstruction. There is borderline colonic wall thickening. There is lower rectal wall thickening with presacral edema. Peritoneum: There is no intraperitoneal free air or abdominal ascites. Vasculature: The abdominal aorta is normal in course and caliber. Adenopathy: None. Pelvic viscera: Evaluation the pelvis is difficult due to the lack of orally administered contrast. The bladder is nearly empty. The vagina appears fluid- filled. There appear to be soft tissue nodules within the region of the vaginal fornix. The indistinct soft tissue planes are at the level of the left renal transition zone. An inflammatory or neoplastic processes the pelvis resulting in left ureteral obstruction must be considered. Correlation with the patient's prior surgical history is recommended. Skeletal structures: No destructive lesions are visualized IMPRESSION: 1. Multiple fluid-filled small bowel and colonic loops without evidence for a discrete transition zone. The findings are suggestive of ileus. There is borderline diffuse colonic wall thickening, and moderate lower rectal colonic wall thickening 2. Interval development of moderate left-sided hydronephrosis and hydroureter. No calculi identified. The site of obstruction is within the low pelvis, possibly secondary to an inflammatory or neoplastic process. 3. Nonspecific nodularity in the region of the vaginal fornix. Neoplasm must be considered. Correlation with direct visualization is recommended. 4. Interval development of common bile duct dilatation 5. Given the interval left-sided hydronephrosis, and the abnormal pelvic findings, both urologic consultation and gynecological oncology consultation is recommended in follow-up Code Status & VTE Plan Code Status full VTE Prophylaxis Plan VTE Prophylaxis will be ordered: Yes Supervising Physician Co-Signing Physician Notes Pt seen/examined in conjunction with resident MD Monique Walter. Orders and plan of admission formulated with resident. 57 y/o F Hx Cervical CA on chemo, COPD, Depression, GERD. Presenting with fever, L abdominal pain, nausea, vomiting and diarrhea. She is neutropenic on arrival to the ER and a UA is strongly +. A CT of the abdomen was obtained. results are as follows: 1. Multiple fluid-filled small bowel and colonic loops without evidence for a discrete transition zone. The findings are suggestive of ileus. There is borderline diffuse colonic wall thickening, and moderate lower rectal colonic wall thickening 2. Interval development of moderate left-sided hydronephrosis and hydroureter. No calculi identified. The site of obstruction is within the low pelvis, possibly secondary to an inflammatory or neoplastic process. 3. Nonspecific nodularity in the region of the vaginal fornix. Neoplasm must be considered. Correlation with direct visualization is recommended. 4. Interval development of common bile duct dilatation OE AAO x 3 no distress S1,2 R no murmurs Lung are clear Diffusely tender abdomen - more so on L, BS + No CCE No deficits P: Urology contacted and she will likely need a stent. They are hoping her neutropenia shows some improvement. She is placed on IV Cefepime in the interim. We would need to contact them overnight if her status worsens Regarding her ileus, this presents a management challenge as she will likely require narcotics for pain control. We can keep her NPO with IVF and antiemetics and address this fully when her infection is treated. Her CA is advanced and she can follow with her oncologist on DC in the outpt setting. Resident Activity Tracking Resident Involvement: Resident Care Provided Care Provided: Adult Hospital Medicine (1) Hydronephrosis Hydronephrosis type: unspecified Qualified Code(s): N13.30 - Unspecified hydronephrosis (2) Cervical cancer Malignant neoplasm of cervix location: unspecified location Qualified Code(s): C53.9 - Malignant neoplasm of cervix uteri, unspecified (3) Diarrhea Diarrhea type: unspecified type Qualified Code(s): R19.7 - Diarrhea, unspecified
[2018-08-05 22:13] LABS: Cdiff Antigen Positive; Cdiff Toxin A+B Negative Cdiff Toxin (Negative)
[2018-08-05] MEDS ORDERED: PROMETHAZINE HCL 25 MG in SODIUM CHLORIDE 0.9% 50 ML IV PRN (22:39)
[2018-08-05] MEDS ORDERED: ACETAMINOPHEN 65 ML IV PRN (22:39)
[2018-08-05] MEDS ORDERED: MoRPHine SULFATE 2 MG/ML CARP IV PRN (22:39)
[2018-08-05] MEDS ORDERED: SODIUM CHLORIDE 0.9% 250 ML IV PRN (22:39)
[2018-08-05] MEDS: ONDANSETRON INJ 2 MG/ML 2 ML VIAL IV PRN (23:02)
[2018-08-05] MEDS: IPRATROPIUM BROMIDE/ALBUTEROL respimat INH INH SCH (23:29)
[2018-08-05] MEDS: D5NSS + 20MEQ KCL 20 MEQ/1,000 ML BAG IV SCH (23:31)
[2018-08-06] MEDS: dexAMETHasone 4 MG in SYRINGE 0 ML IV SCH (08:39)
[2018-08-06] MEDS: ENOXAPARIN INJ 40 MG/0.4 ML SYR SQ SCH (08:39)
[2018-08-06] MEDS: IPRATROPIUM BROMIDE/ALBUTEROL respimat INH INH SCH ×4 (08:40→20:55)
--- NOTE | 2018-08-06 08:41 | Urology Consultation ---
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 She appears stable from perspective at this time - denies flank pain, currently afebrile with normal kidney function. Dr. Krishnamurthy reviewed findings, recommend ureteral stent placement. However patient is severely neutropenic. He recommends primary team evaluation and clearance for surgery today. Pt remains NPO until further direction received, Dr Kenyon made aware and will evaluate patient soon. Pt also made aware of these findings and recommendation for possible cystoscopy, Left retrograde pyelogram, and Left ureteral stent placement today. Risks and benefits to be reviewed by Dr. Krishnamurthy. She is agreeable to procedure if this is ultimately in her best interest today. Maintain IVF's, keep NPO. We will continue to monitor very closely with primary team. Please see additional comments per my attending physician. History of Present Illness Reason for Consultation: L hydronephrosis Requesting Physician: Dr. Murphy Attending Physician: Imer Murphy MD History of Present Illness 57yo F with complex history including several abdominal surgeries including ventral hernia repair, hyster with BSO in 2003, sigmoid colon resection in 2004 and bowel resection due to adhesions in Dec 2006, with squamous cell carcinoma of cervix first diagnosed in 2002, on chemotherapy, managed by [facility] (Dr. Nazario Mccarthy, last seen outpatient in June 2018). Per notes, it appears she has SCC involving remaining cervix involving vaginal wall and bladder, P-16 positive. Appears to currently on Navelbine for chemotherapy. She presented to [facility] last evening c/o fevers ranging 101-102F. She also has generalized lower abdominal pain, nausea/vomiting/diarrhea, which is not new for her. UA contaminated but consistent with infection, nitrite positive. CT imaging possible ileus, also reveals new L hydronephrosis and hydroureter, all the way down to the level of her bladder. Question of extrinsic compression from possible vaginal fornix nodularity. Further complicating, she is severely pancytopenic -requiring blood transfusion. We have been consulted to assist in care, regarding UTI, and new L hydronephrosis. We have seen her as an outpatient x1 visit for bladder pain in June [address] Klein, at that time had planned for cystoscopy but patient unable to make appt due to oncology needs taking precedence. 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 She has involuntary leakage of urine constantly. She states she always wears a depends, never feels the urge to void. This has been her baseline x at least one year. Bladder appears empty on CT. Denies hx of stones, hematuria or dysuria. Some nausea, no vomiting since admission. Denies flank pain or suprapubic pain. Allergies Allergy/AdvReac Type Severity Reaction Status Date / Time No Known Drug Allergies Allergy . Verified 08/05/18 16:19 Home Medications Home Medications Medication Instructions Recorded Confirmed Type dexamethasone 4 mg PO DIRECTED 12/25/17 08/05/18 History dicyclomine 20 mg PO Q6 12/25/17 08/05/18 History lorazepam 1 mg PO TID PRN 12/25/17 08/05/18 History mirtazapine 45 mg PO HS 12/25/17 08/05/18 History morphine 15 mg PO Q12H 12/25/17 08/05/18 History olanzapine [Zyprexa] 5 mg PO HS 12/25/17 08/05/18 History omeprazole 20 mg PO BID 12/25/17 08/05/18 History oxycodone 5 mg PO Q6H PRN 12/25/17 08/05/18 History prochlorperazine maleate 10 mg PO Q6 PRN 12/25/17 08/05/18 History promethazine 25 mg PO Q6H PRN 12/25/17 08/05/18 History ipratropium-albuterol [Combivent 1 puff INHALATION QID 01/06/18 08/05/18 History Respimat] Patient History Medical History Cervical cancer COPD (chronic obstructive pulmonary disease) (Chronic) Generalized anxiety disorder (Chronic) Depression (Chronic) GERD (gastroesophageal reflux disease) (Chronic) Low back pain (Acute) Mood disorder (Acute) Alcohol overdose Headache History of diverticulitis Infection of venous access port Partial small bowel obstruction Recurrent ventral incisional hernia Sepsis Small bowel obstruction Vomiting Surgical History H/O colonoscopy "06/02/14- The examined portion of the ileum was normal. Normal mucosa in the entire examined colon. Fluid aspiration performed. Patent functional end-to-end colo-colonic anastomosis. Biopsies normal. " History of bowel resection "2004 - sigmoid resection " History of hysterectomy "2003" Hx of dilation and curettage Hx of hernia repair "2007- incisional hernia repair with mesh" Hx of laparoscopy "2008- with extensive adhesiolysis, laparoscopic incisional hernia repairs with with mesh" S/P exploratory laparotomy "with extensive lysis of adhesions; resection of colorectal anastamosis; stapled end to end colorectal anastomosis w/completion proctoscopy" Family History Other Cancer Diabetes Lung disease Social History Preferred Language: Nepali Communication Ability: Effective Cold Reduction Roller Required: Yes Beliefs That Will Affect Care: None marital status: Single Current Living Situation: Significant Other Other Information That Helps Us Care for You: No Feels Safe at Home: Yes Safety Concerns: Feels Safe At This Time Smoking Status: Current every day smoker Tobacco Type: cigarettes Cigarettes Per Day: 10 Do You Dip or Chew Tobacco: No Second Hand Exposure: No Hx Alcohol Use: Yes Hx Substance Use: No Review of Systems Constitutional: + malaise; no fever and no chills Eyes: no blind spots and no problem reported Ear, Nose, Mouth, Throat: no ear pain and no tinnitus Respiratory: no cough Cardiovascular: no chest pain and no syncope Gastrointestinal: no abdominal pain, no nausea and no vomiting Genitourinary: no dysuria, no nocturia and no hematuria Musculoskeletal: no back pain and no myalgia Integumentary: no acne and no rash Neurologic: no unsteadiness, no localized weakness, no numbness and no paresthesia Psychiatric: + depression; no hopelessness Endocrine: no fatigue, no polydipsia and no polyphagia Hematologic / Lymphatic: no easy bleeding and no coagulopathy Physical Exam Constitutional: + ill appearing; no acute distress and not obese Eyes: no nystagmus ENMT: Ears: no hearing impairment Neck: trachea midline Respiratory: no respiratory distress and does not use accessory muscles Cardiovascular: Vessels: + JVD Gastrointestinal (Abdomen): Inspection/Auscultation: abdomen not distended and no abdominal edema Percussion/Palpation: abdomen soft Musculoskeletal: Head/Neck/Chest: + evidence of head trauma Skin: no rashes, warm and dry no rashes Neurologic: awake; not confused and not obtunded Psychiatric: A+Ox3, euthymic affect Orientation: alert and oriented to place Genitourinary: depends intact Lymphatic: no cervical or axillary lymphadenopathy Results & Data Vital Signs (Past 12 Hours) Vital Signs Temp Pulse Pulse Pulse Resp BP BP 08/06/18 07:25 37.3 C 108 H 18 103/60 08/06/18 06:21 37.2 C 106 H 20 127/75 08/06/18 05:55 36.6 C 105 H 20 103/56 L 08/06/18 05:46 37.2 C 109 H 20 112/78 08/06/18 05:19 37.2 C 107 H 16 117/68 08/06/18 04:20 37 C 101 H 18 110/65 08/06/18 03:49 36.5 C 98 H 18 110/65 08/06/18 03:21 36.7 C 98 H 18 104/62 08/06/18 02:50 37 C 100 H 18 103/64 08/06/18 02:38 37.1 C 100 H 18 101/58 L 08/06/18 02:19 37.5 C 104 H 16 102/62 08/05/18 23:47 37.4 C 120 H 19 08/05/18 23:45 37.2 C 128 H 128 H 20 08/05/18 22:04 108 H 17 127/67 08/05/18 21:00 110 H 25 H 137/73 BP Pulse Ox 08/06/18 07:25 95 08/06/18 06:21 98 08/06/18 05:55 98 08/06/18 05:46 96 08/06/18 05:19 97 08/06/18 04:20 96 08/06/18 03:49 97 08/06/18 03:21 96 08/06/18 02:50 94 08/06/18 02:38 96 08/06/18 02:19 95 08/05/18 23:47 119/69 93 08/05/18 23:45 133/68 96 08/05/18 22:04 96 08/05/18 21:00 (1) Hydronephrosis Hydronephrosis type: unspecified Qualified Code(s): N13.30 - Unspecified hydronephrosis (2) Cervical cancer Malignant neoplasm of cervix location: unspecified location Qualified Code(s): C53.9 - Malignant neoplasm of cervix uteri, unspecified
[2018-08-06] MEDS ORDERED: ENOXAPARIN INJ 40 MG/0.4 ML SYR SQ SCH (09:00)
[2018-08-06 11:07] LABS: iSTAT Blood Urea Nitrogen 7 mg/dl (7-18); iSTAT Carbon Dioxide 25 mEq/l (24-31); iSTAT Glucose 119 mg/dl (70-99)
[2018-08-06 11:08] LABS: Hematocrit (blood only) 27.2 % (37-47); Mean Corpuscular Hgb Conc 36.8 g/dL (32-36); Mean Platelet Volume 10.8 fL (7.4-10.4); Platelet Count 183 K/uL (130-400); RDW Coefficient of Variation 13.4 % (11.5-14.5); RDW Standard Deviation 40.9 fL (36.4-46.3); Red Blood Count 3.24 M/uL (4.2-5.4); White Blood Count 0.49 K/uL (4.8-10.8)
[2018-08-06 11:19] LABS: BUN Creatinine Ratio 6.4 (10-20); Calcium 7.8 mg/dl (8.5-10.1); Creatinine Clr Calc Pharmacy 39.7 ml/min; Est GFR (African American) 73.3; Est GFR (Non-African American) 63.3; Potassium 2.7 mmol/L (3.5-5.1)
[2018-08-06] MEDS ORDERED: NALOXONE HCL 0.4 MG/1 ML VIAL/CARP IV PRN (12:03)
[2018-08-06] MEDS ORDERED: CEFEPIME CONSULT ACTIVE PRN (12:27)
[2018-08-06] MEDS ORDERED: MAGNESIUM SULFATE / D5W 1 GM/100 ML BAG IV ONE (13:15)
[2018-08-06] MEDS: SODIUM CHLORIDE 0.9% 1000ML 1,000 ML IV SCH (13:21)
[2018-08-06] MEDS: CEFEPIME 2,000 MG in SYRINGE 7.5 ML IV SCH (13:31)
[2018-08-06] MEDS: POTASSIUM CHLORIDE / WTR 10 MEQ/100 ML PLCT IV SCH ×5 (13:31→22:02)
[2018-08-06] MEDS: MoRPHine SULFATE PCA 50 MG/50ML IV PRN ×2 (13:45→18:06)
[2018-08-06] MEDS: LORazepam 0.5 MG/1 ML VIAL IV PRN ×3 (13:46→22:02)
[2018-08-06] MEDS: FILGRASTIM 300 MCG/ML VIAL SC SCH (14:15)
[2018-08-06] MEDS: D5NSS + 20MEQ KCL 20 MEQ/1,000 ML BAG IV SCH (17:00)
[2018-08-06] MEDS ORDERED: Nursing to Pharmacy Communication ONE (17:23)
--- NOTE | 2018-08-06 18:50 | Hospitalist Progress Note ---
Date of Service August 06, 2018 Assessment & Plan (1) Neutropenic fever: Remains on cefepime. Port looks clean. Blood cx's pending. Urine cx with GNR. Stool studies pending. Source - either urine and/or GI. Neupogen 300mcg x 1. Repeat CBC am. May need additional neupogen tomorrow. Heme/onc consult requested with Dr Nazario Mccarthy. Present on Admission?: Yes (2) Diarrhea: Etiology? C diff negative. Checking stool cx and stool wbc. Radiation? Chemo related? other? GI consult with Dr Heard requested. CT findings of colitis noted. Present on Admission?: Yes (3) Cervical cancer: stage 4, s/p chemo about 9-10 days ago[address] poor prognosis. Dr. Mccarthy to see in consult tomorrow. Neupogen for neutropenia. Present on Admission?: Yes (4) Hydronephrosis: left-sided. presumed to be extrinsic compression of ureter from her cervical ca. urology has seen - stent indicated but holding off due to electrolyte abnormalities, severe neutropenia, etc appreciate their consult. treat UTI. (5) Hypokalemia: replace; repeat K later tonight and tomorrow 2nd to diarrhea, poor PO intake, etc (6) Hypomagnesemia: repleted, improved 2nd to diarrhea (7) Tobacco use disorder: (8) Chronic pain syndrome: change PO morphine / oxycodone to CAR SWEEPER morphine to optimize pain control adjust as needed (9) UTI (urinary tract infection): GNR cefepime follow cx (10) Severe protein-calorie malnutrition: in setting of advanced cancer, diarrhea, etc when able to take PO add MVI, boost, etc consider marinol consider low-dose prednisone for appetite stimulation (11) COPD (chronic obstructive pulmonary disease): no exacerbation at this time continue inhalers (12) DVT prophylaxis: lovenox daily Subjective main complaints are that of abdominal pain and diarrhea. has had chronic, intermittent diarrhea but got much worse 3 days ago. takes morphine TID at home and oxycodone qid most days for chronic pain. no urinary symptoms. fevers better today. no major cough or congestion. Review of Systems Constitutional: + fatigue and + anorexia; no chills Respiratory: no sputum production and no wheezing Cardiovascular: no chest pain Gastrointestinal: + abdominal pain and + diarrhea/loose stools; no nausea and no vomiting Integumentary: no rash Physical Exam Constitutional: + ill appearing, + thin and + cachectic; no acute distress ENMT: Mouth: + oropharynx abnormality (thrush plaques on tongue, buccal mucosa) Respiratory: normal respiratory effort; no respiratory distress Auscultation: + wheezes Cardiovascular: Rate/Rhythm: regular rate and regular rhythm Heart Sounds: normal S1 and normal S2; no murmur Vessels: posterior tibial pulses present and dorsalis pedis pulses present; no JVD Gastrointestinal (Abdomen): Inspection/Auscultation: normal bowel sounds; abdomen not distended Percussion/Palpation: + abdomen tender (suprapubic); no guarding and abdomen not rigid Skin: pallor port clean, no erythema Psychiatric: Orientation: alert and oriented x 3 Affect: + depressed affect Results & Data Vital Signs (Past 12 Hours) Vital Signs Temp Pulse Pulse Resp BP BP Pulse Ox 08/06/18 14:53 36.6 C 95 H 18 107/67 97 08/06/18 11:01 36.7 C 95 H 18 114/64 08/06/18 07:25 37.3 C 108 H 18 103/60 95 Laboratory Results total wbc 0.6 low K low mag urine cx - GNR (1) Hydronephrosis Hydronephrosis type: unspecified Qualified Code(s): N13.30 - Unspecified hydronephrosis (2) Cervical cancer Malignant neoplasm of cervix location: unspecified location Qualified Code(s): C53.9 - Malignant neoplasm of cervix uteri, unspecified (3) Diarrhea Diarrhea type: unspecified type Qualified Code(s): R19.7 - Diarrhea, unspecified (4) UTI (urinary tract infection) Urinary tract infection type: acute cystitis Hematuria presence: without hematuria Qualified Code(s): N30.00 - Acute cystitis without hematuria (5) COPD (chronic obstructive pulmonary disease) COPD type: unspecified COPD Qualified Code(s): J44.9 - Chronic obstructive pulmonary disease, unspecified
--- NOTE | 2018-08-06 23:34 | Consultation Report ---
DATE OF CONSULTATION: 08/06/2018 GASTROENTEROLOGY CONSULTATION RACE: . ATTENDING PHYSICIAN: Lincoln Waller MD CONSULTING PHYSICIAN: Francesco Heard DO REASON FOR CONSULTATION: Colitis, neutropenia. HISTORY OF PRESENT ILLNESS: Ashley Garcia is a pleasant 57-year-old female with a history of metastatic cervical cancer, who presented to the Department of Emergency Medicine last evening with neutropenic fever with temperatures ranging up to 102 degrees as an outpatient. She did complain of bilateral lower quadrant abdominal pain, nausea, vomiting, and diarrhea and last received chemotherapy on July 28. Upon arrival to the Department of Emergency Medicine, she was noted to have a white blood cell count of 0.44 with a hemoglobin of 6.8, hematocrit 19.6, and a platelet count of 177. Her sodium was 133, potassium was 2.7, chloride was 94, bicarb was 25, BUN 7, creatinine 1.2. Blood glucose was 119. CT scan of the abdomen and pelvis was ordered and showed findings suggestive of an ileus. There was also diffuse colonic wall thickening and moderate rectal wall thickening. There was a nonspecific nodularity in the region of the vaginal fornix, interval development of common bile duct dilatation, and moderate left-sided hydronephrosis and hydroureter. She was seen by urology who recommended ureteral stent placement due to severe neutropenia. They decided to hold off at this time. The patient did receive 2 units of irradiated leukocyte reduced red blood cells and a repeat H and H was noted to be 10.0 and 27.2. She was given a dose of Neupogen and was placed on cefepime 2 grams IV q. 12 hours. At the time that I saw the patient, she was feeling slightly improved. She states that she is having decreased bowel movements since her arrival. She is tolerating clear liquid diet. C. diff testing returned negative. Urine culture did show gram-negative bacilli for which she remains on cefepime therapy. She denied any fevers since her arrival. She further denies any melena, hematemesis, hematochezia, jaundice, acholic stools, dark urine, pruritus, nausea or vomiting. She has no further complaints. PAST MEDICAL HISTORY: Significant for cervical cancer, COPD, generalized anxiety, depression, GERD, mood disorder, history of sepsis, partial small-bowel obstruction, history of diverticulitis, alcohol overdose headaches. PAST SURGICAL HISTORY: Includes hysterectomy, bowel resection, hernia repair, exploratory lap, history of D and C. ALLERGIES: None. MEDICATIONS: At present include dexamethasone 4 mg IV q.a.m., cefepime 2 grams IV q. 12 hours, albuterol via inhaler q.i.d. scheduled, Lovenox 40 mg subQ q.a.m., Neupogen 300 mcg subQ daily. P.r.n. medications include Tylenol, Zofran, Phenergan, Ativan, morphine sulfate, naloxone. SOCIAL HISTORY: She is single. She denies any alcohol or illicit drug use. She does smoke a half pack of cigarettes per day. FAMILY HISTORY: Negative for GI malignancy or inflammatory bowel disease. REVIEW OF SYSTEMS: Negative x12 system review other than pertinent positives listed in the HPI. PHYSICAL EXAMINATION: VITAL SIGNS: Temp 36.6, pulse 95, respirations 18, blood pressure 107/67, pulse ox 97% on room air. GENERAL: She is awake, cooperative, chronic ill appearing, in no acute distress. HEAD: Normocephalic, atraumatic. EYES: Pupils equal, round. Extraocular muscles are intact. ENT: External evaluation of ears and nose are normal. Oropharynx clear. NECK: Soft, supple. CHEST: Clear to auscultation bilaterally. CARDIOVASCULAR SYSTEM: Regular rate and rhythm. ABDOMEN: Soft, nontender, nondistended. Positive bowel sounds. There is no appreciable hepatosplenomegaly. EXTREMITIES: No clubbing, cyanosis, or edema. LABORATORY STUDIES AND RADIOGRAPHIC STUDIES: Reviewed in the HPI. IMPRESSION: A 57-year-old female with history of metastatic cervical cancer presenting with neutropenic fever, urinary tract infection, abnormal CT imaging, and improving diarrhea. PLAN: Differential diagnosis in this patient would include, 1. Diarrhea induced secondary to chemotherapy. 2. Infectious colitis. In that regard, I would recommend that the patient be treated conservatively at this time. I would not recommend that she undergo any invasive testing secondary to her neutropenia. The CT imaging is most likely secondary to chemotherapy effect versus findings from infectious colitis which I would expect to respond to improving white cell count as the chemotherapeutic effect wanes. I would recommend p.r.n. medications for diarrhea including Imodium or Lomotil as needed and I would recommend repeating the patient's electrolyte panel to ensure that electrolyte abnormalities are normalized. I will follow her clinical course and make further recommendations as needed. Once again, thanks for allowing me to participate in the care of this patient. If you have any further questions, please do not hesitate in contacting me.
[2018-08-07] MEDS: CEFEPIME 2,000 MG in SYRINGE 7.5 ML IV SCH ×2 (00:34→12:27)
[2018-08-07] MEDS: D5NSS + 20MEQ KCL 20 MEQ/1,000 ML BAG IV SCH (04:25)
[2018-08-07] MEDS: LORazepam 0.5 MG/1 ML VIAL IV PRN ×3 (04:52→19:32)
[2018-08-07 06:03] LABS: INR 1.1 (0.9-1.1); Prothrombin Time 11.4 Seconds (9.0-12.0)
[2018-08-07 06:12] LABS: Dohle Bodies 3+; Echinocytes 1+; Toxic Granulation 3+
[2018-08-07 06:13] LABS: Hematocrit (blood only) 27.4 % (37-47); Hemoglobin 9.9 g/dL (12.0-16.0); Mean Corpuscular Hgb Conc 36.1 g/dL (32-36); Mean Corpuscular Volume 85.4 fL (80-100); Mean Platelet Volume 11.5 fL (7.4-10.4); Platelet Count 230 K/uL (130-400); RDW Coefficient of Variation 14.2 % (11.5-14.5); RDW Standard Deviation 44.2 fL (36.4-46.3); Red Blood Count 3.21 M/uL (4.2-5.4); White Blood Count 1.63 K/uL (4.8-10.8)
[2018-08-07 06:14] LABS: ALC (manual) 0.78 K/uL (1.2-3.4); Lymphocytes # (manual) 0.78 K/uL (1.2-3.4); Lymphocytes % (manual) 47.7 %; Monocytes # (manual) 0.52 K/uL (0.11-0.59); Monocytes % (manual) 31.9 %; Neutrophils % (manual) 20.4 %
[2018-08-07 06:27] LABS: Calcium 7.9 mg/dl (8.5-10.1); Creatinine Clr Calc Pharmacy 42.2 ml/min; Est GFR (African American) 74.2; Magnesium 1.9 mg/dl (1.8-2.4); Potassium 3.8 mmol/L (3.5-5.1)
[2018-08-07] MEDS: MoRPHine SULFATE PCA 50 MG/50ML IV PRN ×4 (07:22→19:33)
[2018-08-07] MEDS: dexAMETHasone 4 MG in SYRINGE 0 ML IV SCH (09:07)
[2018-08-07] MEDS: IPRATROPIUM BROMIDE/ALBUTEROL respimat INH INH SCH ×4 (09:07→21:45)
[2018-08-07] MEDS: ENOXAPARIN INJ 40 MG/0.4 ML SYR SQ SCH (09:08)
--- NOTE | 2018-08-07 09:08 | Urology Progress Note ---
Date of Service August 07, 2018 Assessment & Plan (1) UTI (urinary tract infection): (2) Hydronephrosis: 57yo F with metastatic cervical SCC, with L hydroureteronephrosis due to extrinsic compression of pelvic mass, UTI and questionable vesicovaginal fistula. Overall doing much better today. Creatinine remains WNL (0.98), electrolytes steadily improving. H/H stabilized since transfusion. UC&S growing E.Coli, sensitive to cefepime. Recommend 7-10d total abx therapy based upon sensitivities. Given absence of fevers and flank pain, and normal kidney function, we are in favor of continuing to monitor left sided hydroureteronephosis at this time. Introducing a ureteral stent in the setting of immunocompromise and UTI could potentially introduce source for upper tract infection. However, this plan may change if she develops fever, clinically decompensates or she develops severe left flank pain. Additionally, the question of vesicovaginal fistula will also need to be investigated once patient clinically stabilizes from this acute illness (i.e. cystogram) Imaging to be reviewed personally by Dr. Villatoro today. He is aware of current plan of care. We will continue to monitor closely with primary team. Subjective 57yo F with metastatic cervical SCC, with L hydroureteronephrosis due to extrinsic compression of pelvic mass, UTI and questionable vesicovaginal fistula. She reports feeling significantly better today, in much better spirits. She also feels her voiding pattern is back to baseline - having dribbling and some urgency. Denies dysuria or hematuria. Denies any flank or suprapubic pain. Denies any fevers/chills/nausea or emesis. Diarrhea improved overnight, she is hungry. Review of Systems Review of Systems: All systems reviewed & are unremarkable except as noted in HPI & below Physical Exam Physical Exam: A&Ox3 RRR abd flank, thin - nondistended. No LE edema Results & Data Vital Signs (Past 12 Hours) Vital Signs Temp Pulse Resp BP Pulse Ox 08/07/18 07:25 36.2 C L 86 20 104/65 98 08/07/18 04:00 36.5 C 79 18 104/66 96 08/07/18 00:50 36.5 C 74 18 88/50 L 98 Laboratory Results Laboratory Results - last 48 hr 08/05/18 08/05/18 08/05/18 17:02 17:02 17:02 WBC Cancelled RBC Cancelled Hgb Cancelled POC Hgb Hct Cancelled POC Hct MCV Cancelled MCH Cancelled MCHC Cancelled RDW Std Deviation Cancelled RDW Coeff of Matthew Cancelled Plt Count Cancelled MPV Cancelled Immature Gran % (Auto) Cancelled Neut % (Auto) Cancelled Lymph % (Auto) Cancelled [place] % (Auto) Cancelled Eos % (Auto) Cancelled Baso % (Auto) Cancelled Immature Gran # (Auto) Cancelled Neut # (Auto) Cancelled Lymph # (Auto) Cancelled [place] # (Auto) Cancelled Eos # (Auto) Cancelled Baso # (Auto) Cancelled Absolute Nucleated RBC Cancelled Nucleated RBC % (auto) Cancelled Neutrophils % (Manual) Cancelled Band Neutrophils % Cancelled Lymphocytes % (Manual) Cancelled Prolymphocyte % Cancelled Reactive Lymphs % (Man) Cancelled Monocytes % (Manual) Cancelled Eosinophils % (Manual) Cancelled Basophils % (Manual) Cancelled Metamyelocytes % (Man) Cancelled Myelocytes % (Man) Cancelled Promyelocytes % (Man) Cancelled Blast Cells % (Manual) Cancelled Plasma Cell % (Manual) Cancelled Other Cells % Cancelled Nucleated RBC % Cancelled Neutrophils # (Manual) Cancelled Band Neutrophils # Cancelled Total Absolute Neuts Cancelled Lymphocytes # (Manual) Cancelled Prolymphocyte # Cancelled Reactive Lymphs # Cancelled Total Abs Lymphocytes Cancelled Monocytes # (Manual) Cancelled Eosinophils # (Manual) Cancelled Basophils # (Manual) Cancelled Metamyelocytes # (Man) Cancelled Myelocytes # (Manual) Cancelled Promyelocytes # (Man) Cancelled Blast Cells # (Man) Cancelled Plasma Cell # (Manual) Cancelled Other Cells # Cancelled Nucleated RBCs # (Man) Cancelled Hypersegmented Neuts Cancelled Hyposegmented Neuts Cancelled Hypogranular Neuts Cancelled Large Granular Lymphs Cancelled # Lrg Granular Lymphs Cancelled Hairy Cells Cancelled Smudge Cells Cancelled Toxic Granulation Cancelled Toxic Vacuolation Cancelled Dohle Bodies Cancelled Hoda Rods Cancelled Platelet Estimate Cancelled Hypogranular Platelets Cancelled Clumped Platelets Cancelled Giant Platelets Cancelled Platelet Satelliting Cancelled RBC Morphology Cancelled Polychromasia Cancelled Hypochromasia Cancelled Poikilocytosis Cancelled Basophilic Stippling Cancelled Anisocytosis Cancelled Microcytosis Cancelled Macrocytosis Cancelled Spherocytes Cancelled Pappenheimer Bodies Cancelled Sickle Cells Cancelled Target Cells Cancelled Tear Drop Cells Cancelled Ovalocytes Cancelled Stomatocytes Cancelled [place] Bodies Cancelled Echinocytes Cancelled Acanthocytes (Spur) Cancelled Rouleaux Cancelled RBC Agglutinates Cancelled Schistocytes Cancelled RBC Morph Comment Cancelled ESR Cancelled Sezary Cell Cancelled PT Cancelled INR Cancelled APTT Cancelled PTT Ratio Cancelled POC Sodium Sodium POC Potassium Potassium POC Chloride Chloride Carbon Dioxide POC Total CO2 Anion Gap POC Anion Gap POC BUN BUN Creatinine POC Creatinine Est Cr Clr Drug Dosing Est GFR ( Amer) Est GFR (Non-Af Amer) BUN/Creatinine Ratio Glucose POC Glucose (other) Lactate Calcium POC Ioniz Calcium Suzanne Magnesium Total Bilirubin AST ALT Alkaline Phosphatase C-Reactive Protein Total Protein Albumin Globulin Albumin/Globulin Ratio Procalcitonin Urine Color Urine Appearance Urine pH Ur Specific [place] Urine Protein Urine Glucose (UA) Urine Ketones Urine Blood Urine Nitrite Urine Bilirubin Urine Urobilinogen Ur Leukocyte Esterase Urine WBC (Auto) Urine RBC (Auto) U Hyaline Cast (Auto) U Epithel Cells (Auto) Urine Bacteria (Auto) Stl C. diff Tox B Gene Stl C.difficile Tox A&B Blood Type Antibody Screen Crossmatch 08/05/18 08/05/18 08/05/18 17:02 17:02 17:02 WBC RBC Hgb POC Hgb Hct POC Hct MCV MCH MCHC RDW Std Deviation RDW Coeff of Matthew Plt Count MPV Immature Gran % (Auto) Neut % (Auto) Lymph % (Auto) [place] % (Auto) Eos % (Auto) Baso % (Auto) Immature Gran # (Auto) Neut # (Auto) Lymph # (Auto) [place] # (Auto) Eos # (Auto) Baso # (Auto) Absolute Nucleated RBC Nucleated RBC % (auto) Neutrophils % (Manual) Band Neutrophils % Lymphocytes % (Manual) Prolymphocyte % Reactive Lymphs % (Man) Monocytes % (Manual) Eosinophils % (Manual) Basophils % (Manual) Metamyelocytes % (Man) Myelocytes % (Man) Promyelocytes % (Man) Blast Cells % (Manual) Plasma Cell % (Manual) Other Cells % Nucleated RBC % Neutrophils # (Manual) Band Neutrophils # Total Absolute Neuts Lymphocytes # (Manual) Prolymphocyte # Reactive Lymphs # Total Abs Lymphocytes Monocytes # (Manual) Eosinophils # (Manual) Basophils # (Manual) Metamyelocytes # (Man) Myelocytes # (Manual) Promyelocytes # (Man) Blast Cells # (Man) Plasma Cell # (Manual) Other Cells # Nucleated RBCs # (Man) Hypersegmented Neuts Hyposegmented Neuts Hypogranular Neuts Large Granular Lymphs # Lrg Granular Lymphs Hairy Cells Smudge Cells Toxic Granulation Toxic Vacuolation Dohle Bodies Hoda Rods Platelet Estimate Hypogranular Platelets Clumped Platelets Giant Platelets Platelet Satelliting RBC Morphology Polychromasia Hypochromasia Poikilocytosis Basophilic Stippling Anisocytosis Microcytosis Macrocytosis Spherocytes Pappenheimer Bodies Sickle Cells Target Cells Tear Drop Cells Ovalocytes Stomatocytes [place] Bodies Echinocytes Acanthocytes (Spur) Rouleaux RBC Agglutinates Schistocytes RBC Morph Comment ESR Sezary Cell PT INR APTT PTT Ratio POC Sodium Sodium Cancelled POC Potassium Potassium Cancelled POC Chloride Chloride Cancelled Carbon Dioxide Cancelled POC Total CO2 Anion Gap Cancelled POC Anion Gap POC BUN BUN Cancelled Creatinine Cancelled POC Creatinine Est Cr Clr Drug Dosing Cancelled Est GFR ( Amer) Cancelled Est GFR (Non-Af Amer) Cancelled BUN/Creatinine Ratio Cancelled Glucose Cancelled POC Glucose (other) Lactate Cancelled Calcium Cancelled POC Ioniz Calcium Suzanne Magnesium Cancelled Total Bilirubin Cancelled AST Cancelled ALT Cancelled Alkaline Phosphatase Cancelled C-Reactive Protein Cancelled Total Protein Cancelled Albumin Cancelled Globulin Cancelled Albumin/Globulin Ratio Cancelled Procalcitonin Cancelled Urine Color Urine Appearance Urine pH Ur Specific [place] Urine Protein Urine Glucose (UA) Urine Ketones Urine Blood Urine Nitrite Urine Bilirubin Urine Urobilinogen Ur Leukocyte Esterase Urine WBC (Auto) Urine RBC (Auto) U Hyaline Cast (Auto) U Epithel Cells (Auto) Urine Bacteria (Auto) Stl C. diff Tox B Gene Stl C.difficile Tox A&B Blood Type Antibody Screen Crossmatch 08/05/18 08/05/18 08/05/18 17:09 18:02 18:02 WBC RBC Hgb POC Hgb TNP Hct POC Hct < 15 L* MCV MCH MCHC RDW Std Deviation RDW Coeff of Matthew Plt Count MPV Immature Gran % (Auto) Neut % (Auto) Lymph % (Auto) [place] % (Auto) Eos % (Auto) Baso % (Auto) Immature Gran # (Auto) Neut # (Auto) Lymph # (Auto) [place] # (Auto) Eos # (Auto) Baso # (Auto) Absolute Nucleated RBC Nucleated RBC % (auto) Neutrophils % (Manual) Band Neutrophils % Lymphocytes % (Manual) Prolymphocyte % Reactive Lymphs % (Man) Monocytes % (Manual) Eosinophils % (Manual) Basophils % (Manual) Metamyelocytes % (Man) Myelocytes % (Man) Promyelocytes % (Man) Blast Cells % (Manual) Plasma Cell % (Manual) Other Cells % Nucleated RBC % Neutrophils # (Manual) Band Neutrophils # Total Absolute Neuts Lymphocytes # (Manual) Prolymphocyte # Reactive Lymphs # Total Abs Lymphocytes Monocytes # (Manual) Eosinophils # (Manual) Basophils # (Manual) Metamyelocytes # (Man) Myelocytes # (Manual) Promyelocytes # (Man) Blast Cells # (Man) Plasma Cell # (Manual) Other Cells # Nucleated RBCs # (Man) Hypersegmented Neuts Hyposegmented Neuts Hypogranular Neuts Large Granular Lymphs # Lrg Granular Lymphs Hairy Cells Smudge Cells Toxic Granulation Toxic Vacuolation Dohle Bodies Hoda Rods Platelet Estimate Hypogranular Platelets Clumped Platelets Giant Platelets Platelet Satelliting RBC Morphology Polychromasia Hypochromasia Poikilocytosis Basophilic Stippling Anisocytosis Microcytosis Macrocytosis Spherocytes Pappenheimer Bodies Sickle Cells Target Cells Tear Drop Cells Ovalocytes Stomatocytes [place] Bodies Echinocytes Acanthocytes (Spur) Rouleaux RBC Agglutinates Schistocytes RBC Morph Comment ESR Sezary Cell PT INR APTT PTT Ratio POC Sodium 133 L Sodium 132 L POC Potassium 2.7 L Potassium 2.6 L POC Chloride 94 L Chloride 100 Carbon Dioxide 24 POC Total CO2 25 Anion Gap 8.0 POC Anion Gap 17.0 POC BUN 7 BUN 8 Creatinine 1.00 POC Creatinine 1.2 Est Cr Clr Drug Dosing 37.1 Est GFR ( Amer) 72.4 Est GFR (Non-Af Amer) 62.5 BUN/Creatinine Ratio 7.8 L Glucose 98 POC Glucose (other) 119 H Lactate 1.0 Calcium 7.8 L POC Ioniz Calcium Suzanne 1.10 L Magnesium 1.1 L Total Bilirubin 0.5 AST 10 L ALT 29 Alkaline Phosphatase 115 C-Reactive Protein 16.40 H Total Protein 5.7 L Albumin 2.0 L Globulin 3.7 Albumin/Globulin Ratio 0.5 L Procalcitonin Urine Color Urine Appearance Urine pH Ur Specific [place] Urine Protein Urine Glucose (UA) Urine Ketones Urine Blood Urine Nitrite Urine Bilirubin Urine Urobilinogen Ur Leukocyte Esterase Urine WBC (Auto) Urine RBC (Auto) U Hyaline Cast (Auto) U Epithel Cells (Auto) Urine Bacteria (Auto) Stl C. diff Tox B Gene Stl C.difficile Tox A&B Blood Type Antibody Screen Crossmatch 08/05/18 08/05/18 08/05/18 18:02 18:02 18:02 WBC 0.44 L* RBC 2.20 L Hgb 6.8 L* POC Hgb Hct 19.6 L* POC Hct MCV 89.1 MCH 30.9 MCHC 34.7 RDW Std Deviation 40.0 RDW Coeff of Matthew 12.3 Plt Count 177 MPV 10.5 H Immature Gran % (Auto) Cancelled Neut % (Auto) Cancelled Lymph % (Auto) Cancelled [place] % (Auto) Cancelled Eos % (Auto) Cancelled Baso % (Auto) Cancelled Immature Gran # (Auto) Cancelled Neut # (Auto) Cancelled Lymph # (Auto) Cancelled [place] # (Auto) Cancelled Eos # (Auto) Cancelled Baso # (Auto) Cancelled Absolute Nucleated RBC Nucleated RBC % (auto) Neutrophils % (Manual) Cancelled Band Neutrophils % Cancelled Lymphocytes % (Manual) Cancelled Prolymphocyte % Cancelled Reactive Lymphs % (Man) Cancelled Monocytes % (Manual) Cancelled Eosinophils % (Manual) Cancelled Basophils % (Manual) Cancelled Metamyelocytes % (Man) Cancelled Myelocytes % (Man) Cancelled Promyelocytes % (Man) Cancelled Blast Cells % (Manual) Cancelled Plasma Cell % (Manual) Cancelled Other Cells % Cancelled Nucleated RBC % Cancelled Neutrophils # (Manual) Cancelled Band Neutrophils # Cancelled Total Absolute Neuts Cancelled Lymphocytes # (Manual) Cancelled Prolymphocyte # Cancelled Reactive Lymphs # Cancelled Total Abs Lymphocytes Cancelled Monocytes # (Manual) Cancelled Eosinophils # (Manual) Cancelled Basophils # (Manual) Cancelled Metamyelocytes # (Man) Cancelled Myelocytes # (Manual) Cancelled Promyelocytes # (Man) Cancelled Blast Cells # (Man) Cancelled Plasma Cell # (Manual) Cancelled Other Cells # Cancelled Nucleated RBCs # (Man) Cancelled Hypersegmented Neuts Cancelled Hyposegmented Neuts Cancelled Hypogranular Neuts Cancelled Large Granular Lymphs Cancelled # Lrg Granular Lymphs Cancelled Hairy Cells Cancelled Smudge Cells Cancelled Toxic Granulation Cancelled Toxic Vacuolation Cancelled Dohle Bodies Cancelled [place] Rods Cancelled Platelet Estimate Hypogranular Platelets Cancelled Clumped Platelets Cancelled Giant Platelets Cancelled Platelet Satelliting Cancelled RBC Morphology Cancelled Polychromasia Cancelled Hypochromasia Cancelled Poikilocytosis Cancelled Basophilic Stippling Cancelled Anisocytosis Cancelled Microcytosis Cancelled Macrocytosis Cancelled Spherocytes Cancelled Pappenheimer Bodies Cancelled Sickle Cells Cancelled Target Cells Cancelled Tear Drop Cells Cancelled Ovalocytes Cancelled Stomatocytes Cancelled [place] Bodies Cancelled Echinocytes Cancelled Acanthocytes (Spur) Cancelled Rouleaux Cancelled RBC Agglutinates Cancelled Schistocytes Cancelled RBC Morph Comment Cancelled ESR 48 H Sezary Cell Cancelled PT 13.7 H INR 1.4 H APTT 38.5 H PTT Ratio 1.4 POC Sodium Sodium POC Potassium Potassium POC Chloride Chloride Carbon Dioxide POC Total CO2 Anion Gap POC Anion Gap POC BUN BUN Creatinine POC Creatinine Est Cr Clr Drug Dosing Est GFR ( Amer) Est GFR (Non-Af Amer) BUN/Creatinine Ratio Glucose POC Glucose (other) Lactate Calcium POC Ioniz Calcium Suzanne Magnesium Total Bilirubin AST ALT Alkaline Phosphatase C-Reactive Protein Total Protein Albumin Globulin Albumin/Globulin Ratio Procalcitonin Urine Color Urine Appearance Urine pH Ur Specific [place] Urine Protein Urine Glucose (UA) Urine Ketones Urine Blood Urine Nitrite Urine Bilirubin Urine Urobilinogen Ur Leukocyte Esterase Urine WBC (Auto) Urine RBC (Auto) U Hyaline Cast (Auto) U Epithel Cells (Auto) Urine Bacteria (Auto) Stl C. diff Tox B Gene Stl C.difficile Tox A&B Blood Type Antibody Screen Crossmatch 08/05/18 08/05/18 08/05/18 18:02 20:00 20:00 WBC RBC Hgb POC Hgb Hct POC Hct MCV MCH MCHC RDW Std Deviation RDW Coeff of Matthew Plt Count MPV Immature Gran % (Auto) Neut % (Auto) Lymph % (Auto) [place] % (Auto) Eos % (Auto) Baso % (Auto) Immature Gran # (Auto) Neut # (Auto) Lymph # (Auto) [place] # (Auto) Eos # (Auto) Baso # (Auto) Absolute Nucleated RBC Nucleated RBC % (auto) Neutrophils % (Manual) Band Neutrophils % Lymphocytes % (Manual) Prolymphocyte % Reactive Lymphs % (Man) Monocytes % (Manual) Eosinophils % (Manual) Basophils % (Manual) Metamyelocytes % (Man) Myelocytes % (Man) Promyelocytes % (Man) Blast Cells % (Manual) Plasma Cell % (Manual) Other Cells % Nucleated RBC % Neutrophils # (Manual) Band Neutrophils # Total Absolute Neuts Lymphocytes # (Manual) Prolymphocyte # Reactive Lymphs # Total Abs Lymphocytes Monocytes # (Manual) Eosinophils # (Manual) Basophils # (Manual) Metamyelocytes # (Man) Myelocytes # (Manual) Promyelocytes # (Man) Blast Cells # (Man) Plasma Cell # (Manual) Other Cells # Nucleated RBCs # (Man) Hypersegmented Neuts Hyposegmented Neuts Hypogranular Neuts Large Granular Lymphs # Lrg Granular Lymphs Hairy Cells Smudge Cells Toxic Granulation Toxic Vacuolation Dohle Bodies [place]oda Rods Platelet Estimate Hypogranular Platelets Clumped Platelets Giant Platelets Platelet Satelliting RBC Morphology Polychromasia Hypochromasia Poikilocytosis Basophilic Stippling Anisocytosis Microcytosis Macrocytosis Spherocytes Pappenheimer Bodies Sickle Cells Target Cells Tear Drop Cells Ovalocytes Stomatocytes [place] Bodies Echinocytes Acanthocytes (Spur) Rouleaux RBC Agglutinates Schistocytes RBC Morph Comment ESR Sezary Cell PT INR APTT PTT Ratio POC Sodium Sodium POC Potassium Potassium POC Chloride Chloride Carbon Dioxide POC Total CO2 Anion Gap POC Anion Gap POC BUN BUN Creatinine POC Creatinine Est Cr Clr Drug Dosing Est GFR ( Amer) Est GFR (Non-Af Amer) BUN/Creatinine Ratio Glucose POC Glucose (other) Lactate Calcium POC Ioniz Calcium Suzanne Magnesium Total Bilirubin AST ALT Alkaline Phosphatase C-Reactive Protein Total Protein Albumin Globulin Albumin/Globulin Ratio Procalcitonin 0.27 Urine Color Yellow Urine Appearance Clear Urine pH 7.0 Ur Specific [place] > 1.045 H Urine Protein 1+ H Urine Glucose (UA) Negative Urine Ketones Negative Urine Blood 2+ H Urine Nitrite Positive A Urine Bilirubin Negative Urine Urobilinogen Negative Ur Leukocyte Esterase Negative Urine WBC (Auto) 5-10 H Urine RBC (Auto) 5-10 H U Hyaline Cast (Auto) 1-5 U Epithel Cells (Auto) >30 H Urine Bacteria (Auto) 4+ H Stl C. diff Tox B Gene Positive Cdiff Gene H Stl C.difficile Tox A&B Negative Cdiff Toxin Blood Type Antibody Screen Crossmatch 08/05/18 08/06/18 08/06/18 23:26 10:38 10:38 WBC 0.49 L* RBC 3.24 L Hgb 10.0 L D POC Hgb Hct 27.2 L POC Hct MCV 84.0 D MCH 30.9 MCHC 36.8 H RDW Std Deviation 40.9 RDW Coeff of Matthew 13.4 Plt Count 183 MPV 10.8 H Immature Gran % (Auto) Cancelled Neut % (Auto) Cancelled Lymph % (Auto) Cancelled [place] % (Auto) Cancelled Eos % (Auto) Cancelled Baso % (Auto) Cancelled Immature Gran # (Auto) Cancelled Neut # (Auto) Cancelled Lymph # (Auto) Cancelled [place] # (Auto) Cancelled Eos # (Auto) Cancelled Baso # (Auto) Cancelled Absolute Nucleated RBC Nucleated RBC % (auto) Neutrophils % (Manual) Cancelled Band Neutrophils % Cancelled Lymphocytes % (Manual) Cancelled Prolymphocyte % Cancelled Reactive Lymphs % (Man) Cancelled Monocytes % (Manual) Cancelled Eosinophils % (Manual) Cancelled Basophils % (Manual) Cancelled Metamyelocytes % (Man) Cancelled Myelocytes % (Man) Cancelled Promyelocytes % (Man) Cancelled Blast Cells % (Manual) Cancelled Plasma Cell % (Manual) Cancelled Other Cells % Cancelled Nucleated RBC % Cancelled Neutrophils # (Manual) Cancelled Band Neutrophils # Cancelled Total Absolute Neuts Cancelled Lymphocytes # (Manual) Cancelled Prolymphocyte # Cancelled Reactive Lymphs # Cancelled Total Abs Lymphocytes Cancelled Monocytes # (Manual) Cancelled Eosinophils # (Manual) Cancelled Basophils # (Manual) Cancelled Metamyelocytes # (Man) Cancelled Myelocytes # (Manual) Cancelled Promyelocytes # (Man) Cancelled Blast Cells # (Man) Cancelled Plasma Cell # (Manual) Cancelled Other Cells # Cancelled Nucleated RBCs # (Man) Cancelled Hypersegmented Neuts Cancelled Hyposegmented Neuts Cancelled Hypogranular Neuts Cancelled Large Granular Lymphs Cancelled # Lrg Granular Lymphs Cancelled Hairy Cells Cancelled Smudge Cells Cancelled Toxic Granulation Cancelled Toxic Vacuolation Cancelled Dohle Bodies Cancelled [place] Rods Cancelled Platelet Estimate Hypogranular Platelets Cancelled Clumped Platelets Cancelled Giant Platelets Cancelled Platelet Satelliting Cancelled RBC Morphology Cancelled Polychromasia Cancelled Hypochromasia Cancelled Poikilocytosis Cancelled Basophilic Stippling Cancelled Anisocytosis Cancelled Microcytosis Cancelled Macrocytosis Cancelled Spherocytes Cancelled Pappenheimer Bodies Cancelled Sickle Cells Cancelled Target Cells Cancelled Tear Drop Cells Cancelled Ovalocytes Cancelled Stomatocytes Cancelled [place] Bodies Cancelled Echinocytes Cancelled Acanthocytes (Spur) Cancelled Rouleaux Cancelled RBC Agglutinates Cancelled Schistocytes Cancelled RBC Morph Comment Cancelled ESR Sezary Cell Cancelled PT INR APTT PTT Ratio POC Sodium Sodium 136 POC Potassium Potassium 2.7 L POC Chloride Chloride 106 Carbon Dioxide 24 POC Total CO2 Anion Gap 6.0 POC Anion Gap POC BUN BUN 6 L Creatinine 0.99 POC Creatinine Est Cr Clr Drug Dosing 39.7 Est GFR ( Amer) 73.3 Est GFR (Non-Af Amer) 63.3 BUN/Creatinine Ratio 6.4 L Glucose 129 H POC Glucose (other) Lactate Calcium 7.8 L POC Ioniz Calcium Suzanne Magnesium Total Bilirubin AST ALT Alkaline Phosphatase C-Reactive Protein Total Protein Albumin Globulin Albumin/Globulin Ratio Procalcitonin Urine Color Urine Appearance Urine pH Ur Specific [place] Urine Protein Urine Glucose (UA) Urine Ketones Urine Blood Urine Nitrite Urine Bilirubin Urine Urobilinogen Ur Leukocyte Esterase Urine WBC (Auto) Urine RBC (Auto) U Hyaline Cast (Auto) U Epithel Cells (Auto) Urine Bacteria (Auto) Stl C. diff Tox B Gene Stl C.difficile Tox A&B Blood Type O Positive Antibody Screen NEGATIVE Crossmatch See Detail 08/06/18 08/06/18 08/07/18 10:38 18:10 05:18 WBC 1.63 L RBC 3.21 L Hgb 9.9 L POC Hgb Hct 27.4 L POC Hct MCV 85.4 MCH 30.8 MCHC 36.1 H RDW Std Deviation 44.2 RDW Coeff of Matthew 14.2 Plt Count 230 MPV 11.5 H Immature Gran % (Auto) Neut % (Auto) Lymph % (Auto) [place] % (Auto) Eos % (Auto) Baso % (Auto) Immature Gran # (Auto) Neut # (Auto) Lymph # (Auto) [place] # (Auto) Eos # (Auto) Baso # (Auto) Absolute Nucleated RBC Nucleated RBC % (auto) Neutrophils % (Manual) 20.4 Band Neutrophils % Lymphocytes % (Manual) 47.7 Prolymphocyte % Reactive Lymphs % (Man) Monocytes % (Manual) 31.9 Eosinophils % (Manual) Basophils % (Manual) Metamyelocytes % (Man) Myelocytes % (Man) Promyelocytes % (Man) Blast Cells % (Manual) Plasma Cell % (Manual) Other Cells % Nucleated RBC % Neutrophils # (Manual) 0.33 L Band Neutrophils # Total Absolute Neuts 0.33 L* Lymphocytes # (Manual) 0.78 L Prolymphocyte # Reactive Lymphs # Total Abs Lymphocytes 0.78 L Monocytes # (Manual) 0.52 Eosinophils # (Manual) Basophils # (Manual) Metamyelocytes # (Man) Myelocytes # (Manual) Promyelocytes # (Man) Blast Cells # (Man) Plasma Cell # (Manual) Other Cells # Nucleated RBCs # (Man) Hypersegmented Neuts Hyposegmented Neuts Hypogranular Neuts Large Granular Lymphs # Lrg Granular Lymphs Hairy Cells Smudge Cells Toxic Granulation 3+ Toxic Vacuolation Dohle Bodies 3+ Hoda Rods Platelet Estimate Hypogranular Platelets Clumped Platelets Giant Platelets 2+ Platelet Satelliting RBC Morphology Polychromasia Hypochromasia Poikilocytosis Basophilic Stippling Anisocytosis Microcytosis Macrocytosis Spherocytes Pappenheimer Bodies Sickle Cells Target Cells Tear Drop Cells Ovalocytes Stomatocytes [place] Bodies Echinocytes 1+ Acanthocytes (Spur) Rouleaux RBC Agglutinates Schistocytes RBC Morph Comment ESR Sezary Cell PT INR APTT PTT Ratio POC Sodium Sodium POC Potassium Potassium 3.1 L POC Chloride Chloride Carbon Dioxide POC Total CO2 Anion Gap POC Anion Gap POC BUN BUN Creatinine POC Creatinine Est Cr Clr Drug Dosing Est GFR ( Amer) Est GFR (Non-Af Amer) BUN/Creatinine Ratio Glucose POC Glucose (other) Lactate Calcium POC Ioniz Calcium Suzanne Magnesium 1.8 Total Bilirubin AST ALT Alkaline Phosphatase C-Reactive Protein Total Protein Albumin Globulin Albumin/Globulin Ratio Procalcitonin Urine Color Urine Appearance Urine pH Ur Specific [place] Urine Protein Urine Glucose (UA) Urine Ketones Urine Blood Urine Nitrite Urine Bilirubin Urine Urobilinogen Ur Leukocyte Esterase Urine WBC (Auto) Urine RBC (Auto) U Hyaline Cast (Auto) U Epithel Cells (Auto) Urine Bacteria (Auto) Stl C. diff Tox B Gene Stl C.difficile Tox A&B Blood Type Antibody Screen Crossmatch 08/07/18 08/07/18 05:18 05:18 WBC RBC Hgb POC Hgb Hct POC Hct MCV MCH MCHC RDW Std Deviation RDW Coeff of Matthew Plt Count MPV Immature Gran % (Auto) Neut % (Auto) Lymph % (Auto) [place] % (Auto) Eos % (Auto) Baso % (Auto) Immature Gran # (Auto) Neut # (Auto) Lymph # (Auto) [place] # (Auto) Eos # (Auto) Baso # (Auto) Absolute Nucleated RBC Nucleated RBC % (auto) Neutrophils % (Manual) Band Neutrophils % Lymphocytes % (Manual) Prolymphocyte % Reactive Lymphs % (Man) Monocytes % (Manual) Eosinophils % (Manual) Basophils % (Manual) Metamyelocytes % (Man) Myelocytes % (Man) Promyelocytes % (Man) Blast Cells % (Manual) Plasma Cell % (Manual) Other Cells % Nucleated RBC % Neutrophils # (Manual) Band Neutrophils # Total Absolute Neuts Lymphocytes # (Manual) Prolymphocyte # Reactive Lymphs # Total Abs Lymphocytes Monocytes # (Manual) Eosinophils # (Manual) Basophils # (Manual) Metamyelocytes # (Man) Myelocytes # (Manual) Promyelocytes # (Man) Blast Cells # (Man) Plasma Cell # (Manual) Other Cells # Nucleated RBCs # (Man) Hypersegmented Neuts Hyposegmented Neuts Hypogranular Neuts Large Granular Lymphs # Lrg Granular Lymphs Hairy Cells Smudge Cells Toxic Granulation Toxic Vacuolation Dohle Bodies Hoda Rods Platelet Estimate Hypogranular Platelets Clumped Platelets Giant Platelets Platelet Satelliting RBC Morphology Polychromasia Hypochromasia Poikilocytosis Basophilic Stippling Anisocytosis Microcytosis Macrocytosis Spherocytes Pappenheimer Bodies Sickle Cells Target Cells Tear Drop Cells Ovalocytes Stomatocytes Fong-[place] Bodies Echinocytes Acanthocytes (Spur) Rouleaux RBC Agglutinates Schistocytes RBC Morph Comment ESR Sezary Cell PT 11.4 INR 1.1 APTT PTT Ratio POC Sodium Sodium 138 POC Potassium Potassium 3.8 D POC Chloride Chloride 111 H Carbon Dioxide 22 POC Total CO2 Anion Gap 5.0 POC Anion Gap POC BUN BUN 7 Creatinine 0.98 POC Creatinine Est Cr Clr Drug Dosing 42.2 Est GFR ( Amer) 74.2 Est GFR (Non-Af Amer) 64.0 BUN/Creatinine Ratio 7.0 L Glucose 129 H POC Glucose (other) Lactate Calcium 7.9 L POC Ioniz Calcium Suzanne Magnesium 1.9 Total Bilirubin AST ALT Alkaline Phosphatase C-Reactive Protein Total Protein Albumin Globulin Albumin/Globulin Ratio Procalcitonin Urine Color Urine Appearance Urine pH Ur Specific [place] Urine Protein Urine Glucose (UA) Urine Ketones Urine Blood Urine Nitrite Urine Bilirubin Urine Urobilinogen Ur Leukocyte Esterase Urine WBC (Auto) Urine RBC (Auto) U Hyaline Cast (Auto) U Epithel Cells (Auto) Urine Bacteria (Auto) Stl C. diff Tox B Gene Stl C.difficile Tox A&B Blood Type Antibody Screen Crossmatch (1) UTI (urinary tract infection) Urinary tract infection type: acute cystitis Hematuria presence: without hematuria Qualified Code(s): N30.00 - Acute cystitis without hematuria (2) Hydronephrosis Hydronephrosis type: unspecified Qualified Code(s): N13.30 - Unspecified hydronephrosis
[2018-08-07] MEDS: NYSTATIN SUSP 500,000 U/5 ML UDC PO SCH ×4 (09:20→21:45)
--- NOTE | 2018-08-07 09:23 | Gastroenterology Progress Note ---
Date of Service August 07, 2018 Assessment & Plan (1) Diarrhea: Patient is a 57 yo female with metastatic cervical cancer, neutropenic fever, UTI, and diarrhea 2/2 chemotherapy. Patient reports resolution of her diarrhea. Though diarrhea has resolved at present, we did discuss using Imodium up to 8 times daily if needed. Thank you for allowing us to participate in the care of this patient. If you should have any further questions or concerns, do not hesitate to contact us at extension [phone] or [phone]. Present on Admission?: Yes Supervising Physician Co-Signing Physician Notes Agree with MARIA ALEJANDRA Martinez as above Abd: Soft, NT, ND, +BS Much improved symptoms today, no diarrhea Continue supportive care Subjective Patient is a 57 yo female with metastatic cervical cancer. GI is following for diarrhea and CT findings of ileus/colitis thought to be due to her cancer treatment. 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 She had negative stool cultures for E Coli, shigella, salmonella, & campylobacter. She reports complete resolution of her diarrhea at present. Her electrolyte abnormalities appear to have been corrected. She denies abdominal pain, fever, chills, nausea, or vomiting. She reports she feels significantly better than previous days. She denies further concerns at present. She does report that she has Cholestyramine at home. Review of Systems Constitutional: no fever Respiratory: no cough and no dyspnea Cardiovascular: no chest pain Gastrointestinal: no abdominal pain, no nausea, no vomiting, no cramping and no diarrhea/loose stools Physical Exam Constitutional: WD/WN, vitals as above + ill appearing and + thin Eyes: PERRL, conjunctivae normal, anicteric sclerae Respiratory: normal respiratory effort, lungs clear to auscultation Cardiovascular: Rate/Rhythm: regular rate and regular rhythm Gastrointestinal (Abdomen): normal bowel sounds, soft, nontender, no hepatosplenomegaly Results & Data Vital Signs (Past 12 Hours) Vital Signs Temp Pulse Resp BP Pulse Ox 08/07/18 07:25 36.2 C L 86 20 104/65 98 08/07/18 04:00 36.5 C 79 18 104/66 96 08/07/18 00:50 36.5 C 74 18 88/50 L 98 (1) Diarrhea Diarrhea type: unspecified type Qualified Code(s): R19.7 - Diarrhea, unspecified
[2018-08-07] MEDS ORDERED: Nursing to Pharmacy Communication ONE (09:51)
[2018-08-07] MEDS: SODIUM CHLORIDE 0.9% 1000ML 1,000 ML IV SCH ×2 (12:27→15:03)
[2018-08-07] MEDS: FILGRASTIM 300 MCG/ML VIAL SC SCH (12:29)
[2018-08-07] MEDS: MoRPHine SULFATE CR 15 MG TABCR PO SCH ×2 (15:06→21:52)
--- NOTE | 2018-08-07 16:37 | Oncology Consultation ---
Date of Consultation August 07, 2018 Assessment & Plan (1) Cervical cancer: 53-year-old female, a case of recurrent cervical cancer, has recurrent disease involving the vaginal area, earlier she declined for surgical intervention, now receiving 2nd line chemotherapy with Navelbine. Admitted for febrile neutropenia, E. coli UTI noted, diarrhea which has improved, received blood transfusion, received 2 days of Neupogen, improvement of the white blood cell count noted, clinically she has improved, he will be stable, no fever since admission. She is likely to go home in the next one day or so, with oral antibiotic for E. coli UTI. She also has an appointment with me next week for next cycle of chemotherapy, will see her in the office and decide about next cycle of chemotherapy. Thanks for the consult. 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 S/P local radiation as well as implant completed on 09/21/2002. -she underwent supracervical hysterectomy and bilateral salpingo-oophorectomy on 07/12/2003 at [facility], final pathology showed no evidence of malignancy, radiation induced changes noted -S/P resection sigmoid colon due to stricture in February 2005. -S/P bowel resection due to adhesions in December 2006. 07/2017-->squamous cell carcinoma involving the remaining cervix with involvement of the vaginal wall and bladder. P-16 positive Herpes zosterinvolving the left upper extremity and the left upper back in October 2017, treated with valacyclovir, now she is on valacyclovir prophylaxis at 500 mg once a day. Current treatment: - Navelbine at 30 mg/m2 weekly x 2 followed by 1 week off, received treatment on 07/21/2018 and 07/28/2018. Recently completed treatment: Paclitaxel(135 mg/m2)and carboplatin AUC of 5 every 3 weekly started 09/26/17. Received 6 cycles of chemotherapy ,last cycle of chemotherapy received on 04/10/2018. OTHER IMPORTANT HISTORY: -COPD, she is on oxygen therapy on p.r.n. basis at home. -GERD, she takes Prilosec on p.r.n. basis. -anxiety, takes Ativan for the symptomatic treatment -S/P cholecystectomy -- urinary incontinence She came to [facility] ER for fever, nausea vomiting, poor appetite, lower abdominal pain, had diarrhea few days earlier earlier, had another absorbed there yesterday but it has improved. When she came in she had a neutropenia, anemia, received blood transfusion support,, started on antibiotic treatment with IV cefepime, had imaging study, left hydronephrosis hydroureter, seen by GI and urologist, normal kidney function test, diarrhea improved, received Neupogen for last 2 days, improvement of the white blood cell count noted, clinically she is feeling much better. When I saw her at bedside today, she was sitting comfortable in the bed, no fever since admission, urine culture grew E. coli, antibiotic treatment changed to oral ciprofloxacin today, no bleeding from any sites, no blood in the urine, no nausea or vomiting, appetite has improved. Allergies Allergy/AdvReac Type Severity Reaction Status Date / Time No Known Drug Allergies Allergy . Verified 08/05/18 16:19 Home Medications Home Medications Medication Instructions Recorded Confirmed Type dexamethasone 4 mg PO DIRECTED 12/25/17 08/05/18 History dicyclomine 20 mg PO Q6 12/25/17 08/05/18 History lorazepam 1 mg PO TID PRN 12/25/17 08/05/18 History mirtazapine 45 mg PO HS 12/25/17 08/05/18 History morphine 15 mg PO Q8 12/25/17 08/07/18 History olanzapine [Zyprexa] 5 mg PO HS 12/25/17 08/05/18 History omeprazole 20 mg PO BID 12/25/17 08/05/18 History oxycodone 5 mg PO Q6H PRN 12/25/17 08/05/18 History prochlorperazine maleate 10 mg PO Q6 PRN 12/25/17 08/05/18 History promethazine 25 mg PO Q6H PRN 12/25/17 08/05/18 History ipratropium-albuterol [Combivent 1 puff INHALATION QID 01/06/18 08/05/18 History Respimat] Patient History Medical History Cervical cancer COPD (chronic obstructive pulmonary disease) (Chronic) Generalized anxiety disorder (Chronic) Depression (Chronic) GERD (gastroesophageal reflux disease) (Chronic) Low back pain (Acute) Mood disorder (Acute) Alcohol overdose Headache History of diverticulitis Infection of venous access port Partial small bowel obstruction Recurrent ventral incisional hernia Sepsis Small bowel obstruction Vomiting Surgical History H/O colonoscopy "06/02/14- The examined portion of the ileum was normal. Normal mucosa in the entire examined colon. Fluid aspiration performed. Patent functional end-to-end colo-colonic anastomosis. Biopsies normal. 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 SKIN: No skin rash, no bruising. HEAD: No new or headache, no dizziness. EYES: No recent change in the vision, no diplopia, EARS: No earache ,no tinnitus, NOSE: No epistaxis, No nasal discharge or stuffiness, MOUTH: No sores, no dysphagia, no hoarseness of voice, NECK: No lumps, No swelling in thyroid area. No stiffness. PULMONARY: cough present, had shortness of breath which has improved after blood transfusion, no hemoptysis, no chest pain, No wheezing. CARDIOVASCULAR: No anginal chest pain, no PND, no orthopnea. No palpitation, no leg edema. No syncope. GASTRIINTESTINAL: lower abdominal pain, she is on MS Contin 15 mg twice a day had nausea and vomiting which has improved, diarrhea also improved, no blood in the stool. UROLOGIC: No burning urination. No hematuria. MUSCULOSKELETAL: No joint pain, No joint swelling, no muscle weakness. HEMATOLOGIC: anemia noted, no bleeding disorder, No bruising. NEUROLOGIC: No seizures, no focal weakness, no speech difficulty, some tingling and numbness of extremities noted. PSYCHRIATRIC: No depression. Anxiety present but getting better,. No psychosis. Physical Exam Physical Exam: On exam: - Alert and oriented x3, thin built woman, not in any distress. - HEENT: no icterus, no pallor, Throat: Normal. - Neck: No palpable cervical lymphadenopathy. - Chest: clear to auscultation. - Abdomen: soft, nontender, no hepatomegaly, no splenomegaly. - No focal neuro deficit. - Extremities: no finger clubbing, no leg edema. Results & Data Vital Signs (Past 12 Hours) Vital Signs Temp Pulse Resp BP BP Pulse Ox 08/07/18 15:33 36.6 C 85 20 118/69 98 08/07/18 12:05 36.4 C L 88 18 104/74 96 08/07/18 07:25 36.2 C L 86 20 104/65 98 LABS: Blood workup done on admission (08/05/2028) - WBC count 0.4, hemoglobin level 6.8, Platelet count of 177,000. - She received Neupogen, RBC count increased to around 1.6, received 2 units of PRBC, hemoglobin level increased to around 9.90, platelet count normal (08/07/2018). - BUN/creatinine: 6/0.9. Calcium 7.8- Albumin 2.0, normal other liver function test. - C-reactive protein 16.4. - Procalcitonin arrow 0.27 which is in normal range. Urine culture grew E. coli. (08/03/2018). Resistant to ampicillin, cefazolin, ceftriaxone. Sensitive to quinolones, nitrofurantoin. IMAGING: CT scan of the abdomen and pelvis (08/05/2018) - Ileus noted. - Thickening of the colonic wall noted. - Interval development of moderate left-sided hydronephrosis hydroureter, no stone identified. - Nonspecific nodularity in the region of the vaginal fornix noted. - CBD validation. Chest x-ray > No acute findings noted. (1) Cervical cancer Malignant neoplasm of cervix location: unspecified location Qualified Code(s): C53.9 - Malignant neoplasm of cervix uteri, unspecified
--- NOTE | 2018-08-07 17:46 | Urology Progress Note ---
Date of Service August 07, 2018 Subjective Pt feeling well this evening . 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 Do not think she would be a candidate for a stent were she to develop flank pain or urosepsis . She would need to be transferred for a left percutaneous nephrostomy Results & Data Vital Signs (Past 12 Hours) Vital Signs Temp Pulse Resp BP BP Pulse Ox 08/07/18 15:33 36.6 C 85 20 118/69 98 08/07/18 12:05 36.4 C L 88 18 104/74 96 08/07/18 07:25 36.2 C L 86 20 104/65 98
[2018-08-07] MEDS: CIPROFLOXACIN 500 MG TAB PO SCH (21:44)
[2018-08-07] MEDS ORDERED: OXYCODONE HCL IR 5 MG TAB (IMMEDIATE RELEASE) PO PRN (22:11)
--- NOTE | 2018-08-07 22:14 | Hospitalist Progress Note ---
Date of Service August 07, 2018 Assessment & Plan (1) UTI (urinary tract infection): 2nd e.coli. stop cefepime start cipro tonight 500mg po BID blood cx's negative (2) Neutropenic fever: RESOLVED. Blood cx's negative. Stool studies negative. Source - e.coli UTI. d/c cefepime -- change to PO cipro tonight. s/p Neupogen yesterday; will give another dose today. Repeat CBC am. Heme/onc consult w/ Dr Nazario Mccarthy appreciated. (3) Diarrhea: resolved GI consult appreciated; suspected to be 2nd to recent chemotherapy infectious w/u negative (4) Cervical cancer: stage 4, s/p chemo about 10 days ago. poor prognosis. Neupogen for neutropenia. Dr Mccarthy's consult appreciated. (5) Hydronephrosis: left-sided. presumed to be extrinsic compression of ureter from her cervical ca. urology has seen - initially stenting was considered, now they are suggesting that left-sided nephrostomy tube may be needed. defer management to urology. appreciate their assistance. treat UTI. (6) Hypokalemia: resolved (7) Hypomagnesemia: resolved (8) Tobacco use disorder: (9) Chronic kidney disease, stage 3a: creatinine at baseline BMP am (10) Chronic pain syndrome: pain controlled resume ms-contin 15mg TID stop basal rate on SAPPHIRE [employer] GRINDER morphine if she does well then stop SAPPH[employer] GRINDER morphine all together tonight and add back her oxycodone 5mg q4h prn breakthrough (11) Severe protein-calorie malnutrition: in setting of advanced cancer, diarrhea, etc advance diet today stop IVF (12) COPD (chronic obstructive pulmonary disease): no exacerbation at this time continue inhalers (13) DVT prophylaxis: lovenox daily d/c home tomorrow?? Subjective patient feeling much better today. more energy. diarrhea resolved. not as weak. asks for diet to be advanced. SAPPHIRE [employer]YL[employer] GRINDER reviewed - only requesting about 1mg of morphine each hour. pain is controlled today. Review of Systems Constitutional: no fever, no chills, no fatigue and no anorexia Respiratory: no cough and no dyspnea Cardiovascular: no chest pain Gastrointestinal: + abdominal pain; no nausea, no vomiting and no diarrhea/loose stools Genitourinary: no dysuria Physical Exam Constitutional: + thin and + cachectic; no acute distress looks much better today ENMT: Mouth: + oropharynx abnormality (thrush plaques on tongue, buccal mucosa - improved) Respiratory: normal respiratory effort; no respiratory distress Cardiovascular: Rate/Rhythm: regular rate and regular rhythm Heart Sounds: normal S1 and normal S2; no murmur Vessels: posterior tibial pulses present and dorsalis pedis pulses present; no JVD Gastrointestinal (Abdomen): Inspection/Auscultation: normal bowel sounds; abdomen not distended Percussion/Palpation: abdomen nontender, no guarding and abdomen not rigid Psychiatric: Orientation: alert and oriented x 3 Results & Data Vital Signs (Past 12 Hours) Vital Signs Temp Pulse Resp BP BP Pulse Ox 08/07/18 19:00 36.4 C L 79 20 106/70 99 08/07/18 15:33 36.6 C 85 20 118/69 98 08/07/18 12:05 36.4 C L 88 18 104/74 96 Laboratory Results Laboratory Results - last 24 hr 08/07/18 08/07/18 08/07/18 05:18 05:18 05:18 WBC 1.63 L RBC 3.21 L Hgb 9.9 L Hct 27.4 L MCV 85.4 MCH 30.8 MCHC 36.1 H RDW Std Deviation 44.2 RDW Coeff of Matthew 14.2 Plt Count 230 MPV 11.5 H Neutrophils % (Manual) 20.4 Lymphocytes % (Manual) 47.7 Monocytes % (Manual) 31.9 Neutrophils # (Manual) 0.33 L Total Absolute Neuts 0.33 L* Lymphocytes # (Manual) 0.78 L Total Abs Lymphocytes 0.78 L Monocytes # (Manual) 0.52 Toxic Granulation 3+ Dohle Bodies 3+ Giant Platelets 2+ Echinocytes 1+ PT 11.4 INR 1.1 Sodium 138 Potassium 3.8 D Chloride 111 H Carbon Dioxide 22 Anion Gap 5.0 BUN 7 Creatinine 0.98 Est Cr Clr Drug Dosing 42.2 Est GFR ( Amer) 74.2 Est GFR (Non-Af Amer) 64.0 BUN/Creatinine Ratio 7.0 L Glucose 129 H Calcium 7.9 L Magnesium 1.9 Diagnostic Findings urine cx - e.coli, sensitive to cipro (1) Diarrhea Diarrhea type: unspecified type Qualified Code(s): R19.7 - Diarrhea, unspecified (2) Cervical cancer Malignant neoplasm of cervix location: unspecified location Qualified Code(s): C53.9 - Malignant neoplasm of cervix uteri, unspecified (3) Hydronephrosis Hydronephrosis type: unspecified Qualified Code(s): N13.30 - Unspecified hydronephrosis (4) UTI (urinary tract infection) Urinary tract infection type: acute cystitis Hematuria presence: without hematuria Qualified Code(s): N30.00 - Acute cystitis without hematuria (5) COPD (chronic obstructive pulmonary disease) COPD type: unspecified COPD Qualified Code(s): J44.9 - Chronic obstructive pulmonary disease, unspecified
[2018-08-08] MEDS: LORazepam 0.5 MG/1 ML VIAL IV PRN ×2 (00:06→09:10)
[2018-08-08] MEDS: PANTOprazole 40 MG TAB PO SCH ×2 (00:30→07:43)
[2018-08-08] MEDS: ONDANSETRON INJ 2 MG/ML 2 ML VIAL IV PRN (01:31)
[2018-08-08] MEDS: HEPARIN 100 UNIT/ML 5ML FLUSH FLUSH PRN ×4 (01:31→08:41)
[2018-08-08] MEDS: MoRPHine SULFATE CR 15 MG TABCR PO SCH (06:31)
[2018-08-08 06:35] LABS: Mean Corpuscular Hgb Conc 35.8 g/dL (32-36); Mean Platelet Volume 11.5 fL (7.4-10.4); Platelet Count 186 K/uL (130-400)
[2018-08-08 07:12] LABS: BUN Creatinine Ratio 8.1 (10-20); Calcium 8.6 mg/dl (8.5-10.1); Est GFR (African American) 61.8; Est GFR (Non-African American) 53.3; Potassium 3.5 mmol/L (3.5-5.1)
[2018-08-08 07:28] LABS: ALC (manual) 0.76 K/uL (1.2-3.4); Dohle Bodies 3+; Echinocytes 1+; Hematocrit (blood only) 28.5 % (37-47); Hemoglobin 10.2 g/dL (12.0-16.0); Lymphocytes # (manual) 0.76 K/uL (1.2-3.4); Lymphocytes % (manual) 8.8 %; Mean Corpuscular Volume 86.1 fL (80-100); Metamyelocytes % (manual) 3.5 %; Myelocytes # (manual) 0.54 K/uL (0-0); Myelocytes % (manual) 6.2 %; Neutrophils % (manual) 73.5 %; RDW Coefficient of Variation 14.6 % (11.5-14.5); Red Blood Count 3.31 M/uL (4.2-5.4); Toxic Granulation 3+; White Blood Count 8.69 K/uL (4.8-10.8)
[2018-08-08] MEDS: CIPROFLOXACIN 500 MG TAB PO SCH (07:34)
[2018-08-08] MEDS: ENOXAPARIN INJ 40 MG/0.4 ML SYR SQ SCH (07:34)
[2018-08-08] MEDS: IPRATROPIUM BROMIDE/ALBUTEROL respimat INH INH SCH (07:34)
[2018-08-08] MEDS: dexAMETHasone 4 MG in SYRINGE 0 ML IV SCH (08:40)
[2018-08-08] MEDS: NYSTATIN SUSP 500,000 U/5 ML UDC PO SCH (08:41)
--- NOTE | 2018-08-17 05:21 | Discharge Summary ---
Date of Service date of admission - August 05, 2018 date of discharge - August 08, 2018 Admission HPI Per Admitting Provider 57-year-old female with a past medical history of cervical cancer presents with fevers for 1 day, ranging from 101-102. She discussed this with her oncologist today who suggested that she come to the emergency room. She does describe having lower abdominal pain at baseline, nausea/vomiting/diarrhea at baseline. She states that the symptoms had gotten worse over the past day and she is currently on a long list of antiemetics and pain medications. She reports having a cough at baseline for which she relates to her COPD. She states that she has urinary incontinence, but has not had any dysuria or hematuria. Patient lives with her boyfriend. She is currently on a course of chemotherapy, 2 weeks on/1 week off. Her last treatment was July 28. Principal Diagnosis neutropenic fever 2nd to e. coli UTI Discharge Exam Constitutional + thin and + cachectic; no acute distress ENMT Mouth: + oropharynx abnormality (thrush plaques on tongue, buccal mucosa - improved) Respiratory normal respiratory effort; no respiratory distress Auscultation: + wheezes Cardiovascular Rate/Rhythm: regular rate and regular rhythm Heart Sounds: normal S1 and normal S2; no murmur Vessels: posterior tibial pulses present and dorsalis pedis pulses present; no JVD Gastrointestinal (Abdomen) Inspection/Auscultation: normal bowel sounds; abdomen not distended Percussion/Palpation: abdomen nontender, no guarding and abdomen not rigid Psychiatric Orientation: alert and oriented x 3 Discharge Data Allergies Allergy/AdvReac Type Severity Reaction Status Date / Time No Known Drug Allergies Allergy . Verified 08/05/18 16:19 Consultations 1. [facility] 2. [facility] gastroenterology 3. [facility] Hematology/Oncology - Nazario Mccarthy MD Ordered Studies CT abd/pelvis - IMPRESSION: 1. Multiple fluid-filled small bowel and colonic loops without evidence for a discrete transition zone. The findings are suggestive of ileus. There is borderline diffuse colonic wall thickening, and moderate lower rectal colonic wall thickening 2. Interval development of moderate left-sided hydronephrosis and hydroureter. No calculi identified. The site of obstruction is within the low pelvis, possibly secondary to an inflammatory or neoplastic process. 3. Nonspecific nodularity in the region of the vaginal fornix. Neoplasm must be considered. Correlation with direct visualization is recommended. 4. Interval development of common bile duct dilatation 5. Given the interval left-sided hydronephrosis, and the abnormal pelvic fi ndings, both urologic consultation and gynecological oncology consultation is recommended in follow-up Hospital Course (1) UTI (urinary tract infection): 2nd e.coli. Initially received cefepime and then was transitioned to PO cipro 500mg po BID. She received stress dose steroids while hospitalized. Blood cultures were negative during the stay. She will complete a course of oral cipro at home for the UTI. (2) Neutropenic fever: RESOLVED. Blood cx's negative. Stool studies negative. Source - e.coli UTI. She received 2 doses of neupogen in the setting of her neutropenic fever. Initially received IV cefepime and then was transitioned to oral cipro for the UTI. Neutropenia resolved prior to discharge as did her fever. She was seen in consult by her primary oncologist Dr Nazario Mccarthy. He will see her after discharge to discuss whether she is a candidate for ongoing chemotherapy for the cervical cancer. (3) Diarrhea: resolved. GI consult appreciated; suspected to be 2nd to recent chemotherapy. infectious work-up including c diff testing was negative. she did not require any investigation beyond her CT scan and stool studies. (4) Cervical cancer: stage 4, s/p chemo about 10 days prior to admission, with resulting neutropenia. poor prognosis. Neupogen was given twice for neutropenia with resolution of such. Dr Nazario Mccarthy saw the patient in consult while hospitalized and will see her shortly after discharge. (5) Hydronephrosis: left-sided. presumed to be extrinsic compression of ureter from her cervical cancer. urology saw in consult - initially stenting was considered, and then a left- sided nephrostomy tube was considered. Ultimately no procedure was pursued due to the severe neutropenia and other issues present. She will need follow-up with [facility] after discharge to follow this newly discovered problem. (6) Hypokalemia: resolved with IV/PO supplementation. (7) Hypomagnesemia: resolved with IV/PO supplementation. (8) Tobacco use disorder: (9) Chronic kidney disease, stage 3a: creatinine was at baseline during the stay (1 to 1.1). (10) Chronic pain syndrome: patient had increasing abdominal pain requiring the use of ING[employer] morphine. she was ultimately transitioned back to her PO morphine regimen along with oxycodone. pain was largely controlled by discharge. (11) Severe protein-calorie malnutrition: in setting of advanced cancer, diarrhea, etc patient was eating prior to discharge. (12) COPD (chronic obstructive pulmonary disease): no exacerbation during the stay. she will continue her usual inhalers. Total Time Total Time Spent Total Time Spent (In Minutes): 45 Total Time Includes: Examination of the Patient, Discharge Planning and Medication Reconciliation Discharge Plan Discharge Items Patient Disposition: Home - Self-Care Reason For Visit: NEUTROPENIC FEVER Discharge Diagnosis: neutropenic fever due to urinary tract infection. diarrhea due to recent chemotherapy - resolved. low potassium and magnesium due to diarrhea - resolved. Discharge Goals: Diagnostic testing and Therapeutic intervention Activity: As commented below Activity Comment: take it easy for the next 2-3 days then gradually increase your activities Non-emergency contact: Primary Care Provider and Oncologist Call non-emergency contact if: you have any medication questions, your symptoms worsen, your pain is not controlled, your pain is worsening and your temperature is above 100.5 Follow-up/Referrals: Felicia Hernandez CRNP [Nurse Practitioner] - (see [facility] within 1-2 weeks) Anita Goodwin MD [Primary Care Provider] - (see Dr Goodwin within 1 week) Nazario Mccarthy MD [Surgeon] - (see Dr Mccarthy next week as scheduled ) Diet: Regular Addtl Provider Instructions: From Lincoln Waller - hospitalist - You were treated for a number of different issues including low white count/neutropenia (which was due to your chemotherapy), urinary tract infection, diarrhea due to recent chemotherapy, low potassium and low magnesium, abdominal pain, and dehydration. All of these issues have either improved or resolved. Your white blood cell count is now normal. Your blood cultures stayed negative while here (no bloodstream infection). The GI team saw you and felt the diarrhea was chemo-related. You were also seen by urology for a swollen left-sided ureter. There was discussion about placing a plastic tube in the ureter called a stent but this was ultimately not done. The ureter might be compressed from your cervical cancer. At this time we recommend - 1. cipro 500mg twice a day for 5 days. This is your antibiotic for your UTI. Start this TONIGHT. 2. take potassium and magnesium supplements once a day. You can start these tomorrow. 3. use nystatin solution 4 times a day (swish and swallow) for 5 days. This is for resolving yeast in the mouth. Follow-up - 1. see Dr Mccarthy next week as scheduled 2. see Dr Goodwin within 1 week 3. see [facility] for the swollen ureter within 1-2 weeks Return to [facility] if - * you have fevers over 100.5 degrees * you have recurrent, severe abdominal pain * you have vomiting that does not respond to your nausea medications * you have shortness of breath or chest pain * severe diarrhea occurs * any other concerns Prescriptions: New magnesium oxide 400 mg (241.3 mg magnesium) tablet 400 mg PO DAILY Qty: 30 RF: 1 potassium chloride 8 mEq tablet extended release 8 meq PO DAILY Qty: 30 RF: 2 Continued olanzapine [Zyprexa] 5 mg Tablet 5 mg PO HS RF: 0 prochlorperazine maleate 10 mg Tablet 10 mg PO Q6 PRN (Reason: Nausea) RF: 0 dicyclomine 20 mg Tablet 20 mg PO Q6 RF: 0 dexamethasone 4 mg Tablet 4 mg PO DIRECTED RF: 0 promethazine 25 mg Tablet 25 mg PO Q6H PRN (Reason: Nausea) RF: 0 omeprazole 20 mg Capsule,Delayed Release(Dr/Ec) 20 mg PO BID RF: 0 mirtazapine 45 mg Tablet 45 mg PO HS RF: 0 morphine 15 mg Tablet Extended Release 15 mg PO Q8 RF: 0 lorazepam 1 mg Tablet 1 mg PO TID PRN (Reason: Anxiety) RF: 0 oxycodone 5 mg Tablet 5 mg PO Q6H PRN (Reason: Pain) RF: 0 Combivent Respimat 20-100 mcg/actuation Mist 1 puff INHALATION QID RF: 0 Stand-Alone Forms: [facility] Discharge Orders: Discharge Order (Routine); Ordered 08/08/18 Ordered By: Lincoln Waller Admission Data Admit Date/Time: 08/05/18 20:24 Attending Provider: Lincoln Waller Admit Provider: Jerrell Walter Primary Care Provider: Anita Goodwin Other Providers: Francesco Heard ; Nazario Mccarthy ; Joselo Krishnamurthy I. Service: Oncology Other Interventions: Discharge Summary Assessment (RN) Last Done: 08/08/18 11:35 Pending Studies at Discharge: No DC Date/Time DO NOT enter until pt leaves facility: 08/08/18 11:55
== END 2018-08-08 11:55 | disposition home or self-care (01) | DRG 689 ==
LOC: ED 15:43 → 4E 20:24 → SUATTDRO 20:24 → 4E 22:04
DX: K52.1 Toxic gastroenteritis and colitis; Z79.891 Long term (current) use of opiate analgesic; D70.3 Neutropenia due to infection; B00.9 Herpesviral infection, unspecified; Z68.1 Body mass index [BMI] 19.9 or less, adult; R50.81 Fever presenting with conditions classified elsewhere; T45.1X5A Adverse effect of antineoplastic and immunosuppressive drugs, initial encounter; E43 Unspecified severe protein-calorie malnutrition; D61.818 Other pancytopenia; N18.3 Chronic kidney disease, stage 3 (moderate); R32 Unspecified urinary incontinence; C79.82 Secondary malignant neoplasm of genital organs; B96.20 Unspecified Escherichia coli [E. coli] as the cause of diseases classified elsewhere; J44.9 Chronic obstructive pulmonary disease, unspecified; E83.42 Hypomagnesemia; N82.0 Vesicovaginal fistula; N39.0 Urinary tract infection, site not specified; Z79.899 Other long term (current) drug therapy; N13.1 Hydronephrosis with ureteral stricture, not elsewhere classified; F32.9 Major depressive disorder, single episode, unspecified; G89.4 Chronic pain syndrome; F17.210 Nicotine dependence, cigarettes, uncomplicated; C53.9 Malignant neoplasm of cervix uteri, unspecified; Z79.52 Long term (current) use of systemic steroids; E87.6 Hypokalemia; K56.7 Ileus, unspecified; C79.11 Secondary malignant neoplasm of bladder; N13.6 Pyonephrosis; F41.1 Generalized anxiety disorder

== ENCOUNTER 2018-12-14 20:35 | Inpatient (IN) ==
[2018-12-14] MEDS ORDERED: SODIUM CHLORIDE 0.9% 1000ML 1,000 ML IV SCH (21:15)
[2018-12-14 22:33] LABS: Alanine Aminotransferase 10 U/L (12-78); Albumin Level 1.7 gm/dl (3.4-5.0); Aspartate Aminotransferase 14 U/L (15-37); BUN Creatinine Ratio 15.9 (10-20); Blood Urea Nitrogen 14 mg/dl (7-18); Calcium 7.7 mg/dl (8.5-10.1); Carbon Dioxide 22 mmol/L (21-32); Chloride 104 mmol/L (98-107); Creatinine Clr Calc Pharmacy 40.8 ml/min; Est GFR (African American) 87.5; Est GFR (Non-African American) 75.5; Glucose 74 mg/dl (70-99); Potassium 3.2 mmol/L (3.5-5.1); Sodium 138 mmol/L (136-145)
--- NOTE | 2018-12-14 22:37 | XRay Report ---
XR chest 1V portable CLINICAL HISTORY: 58 years-old Female presenting with weakness. TECHNIQUE: Portable upright AP view of the chest was obtained. COMPARISON: 08/22/2018. FINDINGS: Left subclavian Mediport terminates in the mid SVC. Atherosclerosis of the aortic arch. Cardiac silho uette normal in size. Lungs are hyperinflated. No focal opacity. No pleural effusion or pneumothorax. Osteopenia suspected. Upper abdomen normal. IMPRESSION: 1. Findings suggest emphysema. No focal infiltrate to suggest pneumonia. Electronically signed by: Mark Stark M.D. 12/14/2018 10:36 PM
[2018-12-14 22:42] LABS: Albumin Globulin Ratio 0.5 (0.9-2); Alkaline Phosphatase 97 U/L (45-117); Bilirubin,Total 0.5 mg/dl (0.2-1); Globulin 3.5 gm/dl (2.5-4.0); Total Protein 5.2 gm/dl (6.4-8.2); Troponin I < 0.015 ng/ml (0-0.045)
[2018-12-14 22:47] LABS: Basophils # (auto) 0.01 K/uL (0-0.2); Basophils % (auto) 0.1 %; Eosinophils # (auto) 0.01 K/uL (0-0.5); Eosinophils % (auto) 0.1 %; Immature Granulocytes # (auto) 0.09 K/uL (0.00-0.02); Immature Granulocytes % (auto) 0.6 %; Lymphocytes # (auto) 0.87 K/uL (1.2-3.4); Lymphocytes % (auto) 6.2 %; Mean Corpuscular Hemoglobin 27.7 pg (25-34); Mean Corpuscular Hgb Conc 33.3 g/dL (32-36); Mean Platelet Volume 9.7 fL (7.4-10.4); Monocytes # (auto) 1.36 K/uL (0.11-0.59); Monocytes % (auto) 9.7 %; Neutrophils # (auto) 11.64 K/uL (1.4-6.5); Neutrophils % (auto) 83.3 %; Nucleated RBC # (auto) 0.02 K/uL (0-0); Nucleated RBC % (auto) 0.1 %; Platelet Count 440 K/uL (130-400); RDW Coefficient of Variation 24.5 % (11.5-14.5); RDW Standard Deviation 71.7 fL (36.4-46.3); Red Blood Count 2.89 M/uL (4.2-5.4); White Blood Count 13.98 K/uL (4.8-10.8)
[2018-12-14 23:04] LABS: Anisocytosis Present; Hypochromasia Present; Ovalocytes 1+
[2018-12-15] MEDS ORDERED: ONDANSETRON INJ 2 MG/ML 2 ML VIAL IV STA ×2 (00:02→00:03)
[2018-12-15] MEDS ORDERED: PIPERACILLIN/TAZOBACTAM 4.5 GM/120 ML BAG IV ONE (00:11)
[2018-12-15] MEDS ORDERED: PIPERACILL/TAZOBAC CONSULT ACTIVE PRN ×2 (00:11→02:42)
--- NOTE | 2018-12-15 00:45 | Emergency Department Note ---
Entered by Efrem Dumont acting as a scribe for Zulma Samaniego MD History of Present Illness General Chief complaint: Illness Stated complaint: AMS Source: patient, EMS and RN notes reviewed History of Present Illness Provider complaint: illness Onset (ago): minute(s) (prior to arrival ) Location: left and right Maximum Pain Intensity: 0 Quality: + other (illness) Associated symptoms: + fever/chills (Positive fever; Negative chills), + loss of appetite and + other (Posive confusion; Negative fall;); no headaches Treatments prior to arrival: other (Chemotherapy two weeks ago) The patient is a 58 year old female who presents to the Emergency Room with complaints of an illness that has started prior to arrival. The patient expresses that she has been confused today. The patient states that she has not eaten for the past couple of days. The patient's RN reports that EMS observed a glucose level of 93 and a fever of 100 F, as well as dried stool on the pt upon arrival. Pt apparently attempted to toilet on her boyfriend's lap in a confused state. The patient denies a headache or fall. The patient reports a history of cervical cancer and her last chemotherapy treatment administered in [facility] two weeks ago. The patient denies a hospice team or palliative care. The patient denies the use of alcohol or drugs. Home Medications Home Medications Medication Instructions Recorded Confirmed Type dicyclomine 20 mg PO Q6 PRN 12/25/17 12/14/18 History morphine 15 mg PO Q8 12/25/17 12/14/18 History Combivent Respimat 1 puff INHALATION QID 01/06/18 12/14/18 History ondansetron 4 mg PO Q6H PRN #30 ea 08/22/18 12/14/18 Rx mirtazapine 45 mg tablet 45 mg PO HS #30 tab 09/01/18 12/14/18 Rx valacyclovir 1 gram tablet 100 mg PO TID PRN #21 tab 09/07/18 12/14/18 History dronabinol 5 mg capsule 5 mg PO BID #60 cap 09/29/18 12/14/18 Rx hydroxyzine pamoate 50 mg capsule 50 mg PO TID PRN #60 cap 09/29/18 12/14/18 Rx omeprazole 20 mg capsule,delayed 20 mg PO BID #60 cap 09/29/18 12/14/18 Rx release lorazepam 1 mg tablet 1 mg PO TID PRN #90 tab 11/25/18 12/14/18 Rx Chemotherapy Drug 1 dose DIRECTED 12/14/18 12/14/18 History magnesium oxide 400 mg PO DAILY 12/14/18 12/14/18 History potassium chloride 10 meq PO DAILY 12/14/18 12/14/18 History Allergies Allergy/AdvReac Type Severity Reaction Status Date / Time No Known Drug Allergies Allergy . Verified 12/14/18 23:47 Past Med/Surg History Medical History Chronic kidney disease, stage 3a (Chronic) pt denies COPD (chronic obstructive pulmonary disease) (Chronic) Generalized anxiety disorder (Chronic) Depression (Chronic) GERD (gastroesophageal reflux disease) (Chronic) Low back pain (Chronic) Alcohol overdose Cervical cancer mets to bladder -- chemotherapy currently. History of diverticulitis Kidney stones Partial small bowel obstruction Port-A-Cath in place Recurrent ventral incisional hernia Small bowel obstruction Vomiting Surgical History H/O colonoscopy "06/02/14- The examined portion of the ileum was normal. Normal mucosa in the entire examined colon. Fluid aspiration performed. Patent functional end-to-e nd colo-colonic anastomosis. Biopsies normal. 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 History of tonsillectomy Hx of dilation and curettage Hx of hernia repair "2007- incisional hernia repair with mesh" Hx of laparoscopy "2008- with extensive adhesiolysis, laparoscopic incisional hernia repairs with with mesh" S/P exploratory laparotomy "with extensive lysis of adhesions; resection of colorectal anastamosis; stapled end to end colorectal anastomosis w/completion proctoscopy" Status post small bowel resection hx Family History Sister Diabetes Other Lung disease Social History Preferred Language: Kazakh Communication Ability: Effective Medical Records Library Professor Required: No Beliefs That Will Affect Care: None marital status: Life Partner Current Living Situation: Spouse Other Information That Helps Us Care for You: No Feels Safe at Home: Yes Smoking Status: Current every day smoker Tobacco Type: cigarettes ; Cigarettes Per Day: 10 x 40 years ; Do You Dip or Chew Tobacco: No ; Second Hand Exposure: Yes ; Tobacco Cessation Education Requested by Patient: No Hx Alcohol Use: No Hx Substance Use: No Review of Systems See HPI for pertinent positives & negatives. Other Limited d/t lack of cooperation and AMS Physical Exam Vital Signs Vital Signs - 24 hr 12/14/18 20:48 12/14/18 21:00 12/14/18 21:02 Temperature 37.3 C Temperature Source Oral Sepsis Recent Fever Within 48 Hours No Sepsis New/Unexplained Change in Mental Status Yes Sepsis Action Taken by Nursing No Action Required Pulse Rate 100 H 97 H 92 H Pulse Rate [Finger] Respiratory Rate 20 16 14 Blood Pressure 120/62 148/77 H Blood Pressure [Right Arm] Blood Pressure Mean 81 100 Blood Pressure Mean [Right Arm] Pulse Oximetry 97 Oxygen Delivery Method Room Air Room Air Room Air 12/14/18 21:10 12/14/18 21:20 12/14/18 21:26 Temperature Temperature Source Sepsis Recent Fever Within 48 Hours Sepsis New/Unexplained Change in Mental Status Sepsis Action Taken by Nursing Pulse Rate 95 H Pulse Rate [Finger] Respiratory Rate 22 16 Blood Pressure Blood Pressure [Right Arm] Blood Pressure Mean Blood Pressure Mean [Right Arm] Pulse Oximetry Oxygen Delivery Method Room Air Room Air Room Air 12/14/18 21:30 12/14/18 23:26 Temperature Temperature Source Sepsis Recent Fever Within 48 Hours Sepsis New/Unexplained Change in Mental Status Sepsis Action Taken by Nursing Pulse Rate Pulse Rate [Finger] 104 H Respiratory Rate 20 Blood Pressure 136/64 Blood Pressure [Right Arm] 130/70 Blood Pressure Mean 88 Blood Pressure Mean [Right Arm] 90 Pulse Oximetry 100 Oxygen Delivery Method Room Air Room Air Vital signs reviewed. General: Chronically ill-appearing 58 year old female, in no significant distre ss. Cachectic and frail. HEENT: No scleral icterus, PERRLA, neck supple. Atraumatic. Cardiovascular: Regular rate and rhythm, no extra sounds. Pulmonary: Clear to auscultation bilaterally, normal work of breathing. Abdomen: Soft, nontender, nondistended, positive bowel sounds. Musculoskeletal: Atraumatic, no peripheral edema. Neurologic: Patient awake alert and oriented x 3, full strength in all 4 extremities. Cranial nerves 2 through 12 grossly intact. Answers most questions appropriately. Awake and alert but confused to events proceeding visit. Skin: Warm, dry, no rash Course 2105: Past medical records reviewed. The patient was evaluated in room B3. A complete history and physical exam was performed. 0005: I reassessed the patient who appears delirious. The patient has removed her clothes and forcefully removed her port of access. The patient is tachycardic and retching. 0015: I reviewed the patient's case with Dr. Cowan, [facility] Hospitalist. He will evaluate the patient for further management. Consultations Consultation #1: I reviewed the patient's case with Dr. Cowan, [facility] Hospitalist. He will evaluate the patient for further management. Time: 00:15 Administered Medications Albuterol (Combivent Respimat) 1 puffs INH QID [facility] Stop: 01/14/19 08:59 Last Admin: 12/17/18 12:52 Dose: 1 puffs Documented by: [id number] Admin: 12/17/18 07:47 Dose: 1 puffs Documented by: [id number] Admin: 12/16/18 20:07 Dose: 1 puffs Documented by: [id number] Admin: 12/16/18 16:54 Dose: 1 puffs Documented by: [id number] Admin: 12/16/18 13:29 Dose: 1 puffs Documented by: [id number] Admin: 12/16/18 07:57 Dose: 1 puffs Documented by: [id number] Admin: 12/15/18 20:07 Dose: 1 puffs Documented by: [id number] Admin: 12/15/18 16:14 Dose: 1 puffs Documented by: [id number] Admin: 12/15/18 13:58 Dose: 1 puffs Documented by: [id number] Admin: 12/15/18 09:13 Dose: 1 puffs Documented by: [id number] Dronabinol (Marinol) 5 mg PO BID@1200,1700 [facility] Stop: 01/15/19 11:59 Last Admin: 12/17/18 12:51 Dose: 5 mg Documented by: [id number] Admin: 12/16/18 17:44 Dose: 5 mg Documented by: [id number] Admin: 12/16/18 13:29 Dose: 5 mg Documented by: [id number] Heparin Sodium (Porcine) (Heparin Sodium (Porcine)) 5,000 units SQ Q8 JOCELYNE Stop: 01/14/19 05:59 Last Admin: 12/17/18 13:58 Dose: Not Given Documented by: [id number] Admin: 12/17/18 06:14 Dose: Not Given Documented by: [id number] Admin: 12/16/18 21:28 Dose: 5,000 units Documented by: [id number] Cosigned by: [id number] Admin: 12/16/18 14:16 Dose: 5,000 units Documented by: [id number] Cosigned by: [id number] Admin: 12/16/18 05:44 Dose: 5,000 units Documented by: [id number] Cosigned by: [id number] Admin: 12/15/18 22:40 Dose: 5,000 units Documented by: [id number] Cosigned by: [id number] Admin: 12/15/18 13:59 Dose: 5,000 units Documented by: [id number] Cosigned by: [id number] Admin: 12/15/18 05:22 Dose: 5,000 units Documented by: [id number] Cosigned by: [id number] Potassium Chloride/Dextrose/Sod Cl (D5nss + 20meq Kcl) 20 meq in 1,000 mls @ 125 mls/hr IV .Q8H JOCELYNE Stop: 01/14/19 02:41 Last Admin: 12/17/18 17:18 Dose: 125 mls/hr Documented by: [id number] Infusion: 12/17/18 17:13 Dose: 0 mls/hr Documented by: [id number] Admin: 12/17/18 08:34 Dose: 125 mls/hr Documented by: [id number] Infusion: 12/17/18 08:20 Dose: 125 mls/hr Documented by: [id number] Infusion: 12/17/18 04:20 Dose: 125 mls/hr Documented by: [id number] Admin: 12/17/18 00:20 Dose: 125 mls/hr Documented by: [id number] Infusion: 12/17/18 00:20 Dose: 125 mls/hr Documented by: [id number] Admin: 12/16/18 18:41 Dose: 125 mls/hr Documented by: [id number] Infusion: 12/16/18 16:43 Dose: 0 mls/hr Documented by: [id number] Infusion: 12/16/18 13:27 Dose: 1,258 mls/hr Documented by: [id number] Infusion: 12/16/18 09:50 Dose: 0 mls/hr Documented by: [id number] Infusion: 12/16/18 06:28 Dose: 125 mls/hr Documented by: [id number] Admin: 12/16/18 03:48 Dose: 125 mls/hr Documented by: [id number] Infusion: 12/16/18 03:48 Dose: 125 mls/hr Documented by: [id number] Admin: 12/15/18 19:56 Dose: 125 mls/hr Documented by: [id number] Infusion: 12/15/18 19:31 Dose: 125 mls/hr Documented by: [id number] Admin: 12/15/18 11:31 Dose: 125 mls/hr Documented by: [id number] Infusion: 12/15/18 11:19 Dose: 125 mls/hr Documented by: [id number] Admin: 12/15/18 03:19 Dose: 125 mls/hr Documented by: [id number] Ceftriaxone Sodium 1,000 mg/ (Dextrose) 60 mls @ 120 mls/hr IV Q24H JOCELYNE; Protocol Stop: 12/25/18 15:59 Last Admin: 12/17/18 15:50 Dose: 120 mls/hr Documented by: [id number] Lorazepam (Ativan) 1 mg PO TID PRN PRN Reason: anxiety Stop: 01/14/19 02:41 Last Admin: 12/16/18 10:29 Dose: 1 mg Documented by: [id number] Admin: 12/16/18 00:04 Dose: 1 mg Documented by: [id number] Admin: 12/15/18 14:12 Dose: 1 mg Documented by: [id number] Magnesium Oxide (Mag-Ox) 400 mg PO DAILY JOCELYNE Stop: 01/14/19 08:59 Last Admin: 12/17/18 07:48 Dose: 400 mg Documented by: [id number] Admin: 12/16/18 08:00 Dose: 400 mg Documented by: [id number] Admin: 12/15/18 09:09 Dose: 400 mg Documented by: [id number] Mirtazapine (Remeron) 45 mg PO HS JOCELYNE Stop: 01/14/19 20:59 Last Admin: 12/16/18 20:08 Dose: 45 mg Documented by: [id number] Admin: 12/15/18 20:08 Dose: 45 mg Documented by: [id number] Morphine Sulfate (Ms Contin) 15 mg PO Q8 JOCELYNE Stop: 12/29/18 05:59 Last Admin: 12/17/18 13:58 Dose: 15 mg Documented by: [id number] Admin: 12/17/18 06:11 Dose: 15 mg Documented by: [id number] Admin: 12/16/18 21:28 Dose: 15 mg Documented by: [id number] Admin: 12/16/18 14:21 Dose: 15 mg Documented by: [id number] Admin: 12/16/18 05:44 Dose: 15 mg Documented by: [id number] Admin: 12/15/18 22:40 Dose: 15 mg Documented by: [id number] Admin: 12/15/18 14:12 Dose: 15 mg Documented by: [id number] Admin: 12/15/18 05:21 Dose: 15 mg Documented by: [id number] Morphine Sulfate (Morphine Sulfate) 2 mg IV Q3H PRN PRN Reason: Moderate Pain Stop: 12/29/18 02:41 Last Admin: 12/17/18 15:49 Dose: 2 mg Documented by: [id number] Admin: 12/17/18 07:40 Dose: 2 mg Documented by: [id number] Admin: 12/16/18 15:54 Dose: 2 mg Documented by: [id number] Admin: 12/16/18 07:46 Dose: 2 mg Documented by: [id number] Admin: 12/15/18 20:00 Dose: 2 mg Documented by: [id number] Ondansetron HCl (Zofran) 4 mg IV Q6H PRN PRN Reason: nausea or vomiting Stop: 01/14/19 02:41 Last Admin: 12/17/18 13:30 Dose: 4 mg Documented by: [id number] Admin: 12/15/18 10:26 Dose: 4 mg Documented by: [id number] Pantoprazole Sodium (Protonix) 40 mg PO BID JOCELYNE Stop: 01/14/19 08:59 Last Admin: 12/17/18 07:48 Dose: 40 mg Documented by: [id number] Admin: 12/16/18 20:08 Dose: 40 mg Documented by: [id number] Admin: 12/16/18 08:00 Dose: 40 mg Documented by: [id number] Admin: 12/15/18 20:08 Dose: 40 mg Documented by: [id number] Admin: 12/15/18 09:09 Dose: 40 mg Documented by: [id number] Potassium Chloride (Klor-Con M10) 10 meq PO DAILY JOCELYNE Stop: 01/14/19 08:59 Last Admin: 12/17/18 07:48 Dose: 10 meq Documented by: [id number] Admin: 12/16/18 08:00 Dose: 10 meq Documented by: [id number] Admin: 12/15/18 09:09 Dose: 10 meq Documented by: [id number] Discontinued Medications Sodium Chloride (Nss 1000ml) 1,000 mls @ 125 mls/hr IV .Q8H JOCELYNE Stop: 12/15/18 05:14 Last Infusion: 12/15/18 04:34 Dose: 0 mls/hr Documented by: [id number] Admin: 12/14/18 21:35 Dose: 125 mls/hr Documented by: [id number] Piperacillin Sod/Tazobactam Sod (Zosyn) 4.5 gm in 120 mls @ 240 mls/hr IV NOW ONE Stop: 12/15/18 00:40 Last Infusion: 12/15/18 03:48 Dose: 0 mls/hr Documented by: [id number] Admin: 12/15/18 01:57 Dose: 240 mls/hr Documented by: [id number] Piperacillin Sod/Tazobactam (Sod 3.375 gm/ Dextrose) 115 mls @ 28.75 mls/hr IV Q8H JOCELYNE; Protocol Stop: 12/25/18 07:59 Last Infusion: 12/17/18 11:45 Dose: 0 mls/hr Documented by: [id number] Admin: 12/17/18 07:45 Dose: 28.8 mls/hr Documented by: [id number] Infusion: 12/17/18 04:20 Dose: 0 mls/hr Documented by: [id number] Admin: 12/17/18 00:20 Dose: 28.8 mls/hr Documented by: [id number] Infusion: 12/16/18 22:48 Dose: 0 mls/hr Documented by: [id number] Admin: 12/16/18 18:41 Dose: 28.8 mls/hr Documented by: [id number] Infusion: 12/16/18 16:58 Dose: 0 mls/hr Documented by: [id number] Infusion: 12/16/18 13:28 Dose: 28.8 mls/hr Documented by: [id number] Infusion: 12/16/18 09:50 Dose: 0 mls/hr Documented by: [id number] Admin: 12/16/18 07:56 Dose: 28.8 mls/hr Documented by: [id number] Infusion: 12/16/18 03:49 Dose: 0 mls/hr Documented by: [id number] Admin: 12/15/18 23:55 Dose: 28.8 mls/hr Documented by: [id number] Infusion: 12/15/18 20:15 Dose: 0 mls/hr Documented by: [id number] Admin: 12/15/18 16:14 Dose: 28.8 mls/hr Documented by: [id number] Infusion: 12/15/18 13:38 Dose: 0 mls/hr Documented by: [id number] Admin: 12/15/18 09:06 Dose: 28.8 mls/hr Documented by: [id number] Ondansetron HCl (Zofran) 4 mg IV NOW STA Stop: 12/15/18 00:03 Last Admin: 12/15/18 00:07 Dose: 4 mg Documented by: [id number] Ondansetron HCl (Zofran) 4 mg IV NOW STA Stop: 12/15/18 00:04 Last Admin: 12/15/18 00:08 Dose: Not Given Documented by: [id number] Potassium Chloride (Klor-Con M20) 40 meq PO NOW STA Stop: 12/15/18 08:48 Last Admin: 12/15/18 09:16 Dose: Not Given Documented by: [id number] Potassium Chloride (Tamara Ciel Elix) 40 meq PO NOW STA Stop: 12/15/18 13:43 Last Admin: 12/15/18 14:10 Dose: 40 meq Documented by: [id number] Medical Decision Making Differential Diagnosis Differential diagnosis: Etiologies such as metabolic, infection, hypoglycemia, electrolyte abnormalities, cardiac sources, intracerebral event, toxicologic, neurologic, as well as others were entertained. Medical Records Attestation: I reviewed the patient's medical records. Home Medications Current Medication List: was personally reviewed by me Laboratory Data Attestation: I reviewed the patient's lab results. Result diagrams: 12/17/18 08:09 12/17/18 08:09 Lab Results 12/14/18 12/14/18 12/14/18 Range/Units 21:51 21:51 21:51 WBC Cancelled RBC Cancelled Hgb Cancelled Hct Cancelled MCV Cancelled MCH Cancelled MCHC Cancelled RDW Std Deviation Cancelled RDW Coeff of Matthew Cancelled Plt Count Cancelled MPV Cancelled Immature Gran % (Auto) Cancelled Neut % (Auto) Cancelled Lymph % (Auto) Cancelled Perry % (Auto) Cancelled Eos % (Auto) Cancelled Baso % (Auto) Cancelled Immature Gran # (Auto) Cancelled Neut # (Auto) Cancelled Lymph # (Auto) Cancelled Perry # (Auto) Cancelled Eos # (Auto) Cancelled Baso # (Auto) Cancelled Absolute Nucleated RBC Cancelled Nucleated RBC % (auto) Cancelled Neutrophils % (Manual) Cancelled Band Neutrophils % Cancelled Lymphocytes % (Manual) Cancelled Prolymphocyte % Cancelled Reactive Lymphs % (Man) Cancelled Monocytes % (Manual) Cancelled Eosinophils % (Manual) Cancelled Basophils % (Manual) Cancelled Metamyelocytes % (Man) Cancelled Myelocytes % (Man) Cancelled Promyelocytes % (Man) Cancelled Blast Cells % (Manual) Cancelled Plasma Cell % (Manual) Cancelled Other Cells % Cancelled Nucleated RBC % Cancelled Neutrophils # (Manual) Cancelled Band Neutrophils # Cancelled Total Absolute Neuts Cancelled Lymphocytes # (Manual) Cancelled Prolymphocyte # Cancelled Reactive Lymphs # Cancelled Total Abs Lymphocytes Cancelled Monocytes # (Manual) Cancelled Eosinophils # (Manual) Cancelled Basophils # (Manual) Cancelled Metamyelocytes # (Man) Cancelled Myelocytes # (Manual) Cancelled Promyelocytes # (Man) Cancelled Blast Cells # (Man) Cancelled Plasma Cell # (Manual) Cancelled Other Cells # Cancelled Nucleated RBCs # (Man) Cancelled Hypersegmented Neuts Cancelled Hyposegmented Neuts Cancelled Hypogranular Neuts Cancelled Large Granular Lymphs Cancelled # Lrg Granular Lymphs Cancelled Hairy Cells Cancelled Smudge Cells Cancelled Toxic Granulation Cancelled Toxic Vacuolation Cancelled Dohle Bodies Cancelled Hoda Rods Cancelled Platelet Estimate Cancelled Hypogranular Platelets Cancelled Clumped Platelets Cancelled Giant Platelets Cancelled Platelet Satelliting Cancelled RBC Morphology Cancelled Polychromasia Cancelled Hypochromasia Cancelled Poikilocytosis Cancelled Basophilic Stippling Cancelled Anisocytosis Cancelled Microcytosis Cancelled Macrocytosis Cancelled Spherocytes Cancelled Pappenheimer Bodies Cancelled Sickle Cells Cancelled Target Cells Cancelled Tear Drop Cells Cancelled Ovalocytes Cancelled Stomatocytes Cancelled [place] Bodies Cancelled Echinocytes Cancelled Acanthocytes (Spur) Cancelled Rouleaux Cancelled RBC Agglutinates Cancelled Schistocytes Cancelled RBC Morph Comment Cancelled Sezary Cell Cancelled Sodium 138 (136-145) mmol/L Potassium 3.2 L (3.5-5.1) mmol/L Chloride 104 (98-107) mmol/L Carbon Dioxide 22 (21-32) mmol/L Anion Gap 12.0 H (3-11) BUN 14 (7-18) mg/dl Creatinine 0.85 (0.6-1.2) mg/dl Est Cr Clr Drug Dosing 40.8 ml/min Est GFR ( Amer) 87.5 Est GFR (Non-Af Amer) 75.5 BUN/Creatinine Ratio 15.9 (10-20) Glucose 74 (70-99) mg/dl Lactate 1.5 (0.4-2.0) mmol/L Calcium 7.7 L (8.5-10.1) mg/dl Total Bilirubin 0.5 (0.2-1) mg/dl AST 14 L (15-37) U/L ALT 10 L (12-78) U/L Alkaline Phosphatase 97 (45-117) U/L Ammonia Troponin I < 0.015 (0-0.045) ng/ml Total Protein 5.2 L (6.4-8.2) gm/dl Albumin 1.7 L (3.4-5.0) gm/dl Globulin 3.5 (2.5-4.0) gm/dl Albumin/Globulin Ratio 0.5 L (0.9-2) TSH 3.050 (0.300-4.500) uIu/ml 12/14/18 12/14/18 12/14/18 Range/Units 21:51 22:33 23:49 WBC 13.98 H RBC 2.89 L Hgb 8.0 L Hct 24.0 L MCV 83.0 MCH 27.7 MCHC 33.3 RDW Std Deviation 71.7 H RDW Coeff of Matthew 24.5 H Plt Count 440 H MPV 9.7 Immature Gran % (Auto) 0.6 Neut % (Auto) 83.3 Lymph % (Auto) 6.2 Perry % (Auto) 9.7 Eos % (Auto) 0.1 Baso % (Auto) 0.1 Immature Gran # (Auto) 0.09 H Neut # (Auto) 11.64 H Lymph # (Auto) 0.87 L Perry # (Auto) 1.36 H Eos # (Auto) 0.01 Baso # (Auto) 0.01 Absolute Nucleated RBC 0.02 H Nucleated RBC % (auto) 0.1 Neutrophils % (Manual) Band Neutrophils % Lymphocytes % (Manual) Prolymphocyte % Reactive Lymphs % (Man) Monocytes % (Manual) Eosinophils % (Manual) Basophils % (Manual) Metamyelocytes % (Man) Myelocytes % (Man) Promyelocytes % (Man) Blast Cells % (Manual) Plasma Cell % (Manual) Other Cells % Nucleated RBC % Neutrophils # (Manual) Band Neutrophils # Total Absolute Neuts Lymphocytes # (Manual) Prolymphocyte # Reactive Lymphs # Total Abs Lymphocytes Monocytes # (Manual) Eosinophils # (Manual) Basophils # (Manual) Metamyelocytes # (Man) Myelocytes # (Manual) Promyelocytes # (Man) Blast Cells # (Man) Plasma Cell # (Manual) Other Cells # Nucleated RBCs # (Man) Hypersegmented Neuts Hyposegmented Neuts Hypogranular Neuts Large Granular Lymphs # Lrg Granular Lymphs Hairy Cells Smudge Cells Toxic Granulation Toxic Vacuolation Dohle Bodies Hoda Rods Platelet Estimate Hypogranular Platelets Clumped Platelets Giant Platelets Platelet Satelliting RBC Morphology Polychromasia Hypochromasia Present Poikilocytosis Basophilic Stippling Anisocytosis Present Microcytosis Macrocytosis Spherocytes Pappenheimer Bodies Sickle Cells Target Cells Tear Drop Cells Ovalocytes 1+ Stomatocytes [place] Bodies Echinocytes Acanthocytes (Spur) Rouleaux RBC Agglutinates Schistocytes RBC Morph Comment Sezary Cell Sodium (136-145) mmol/L Potassium (3.5-5.1) mmol/L Chloride (98-107) mmol/L Carbon Dioxide (21-32) mmol/L Anion Gap (3-11) BUN (7-18) mg/dl Creatinine (0.6-1.2) mg/dl Est Cr Clr Drug Dosing ml/min Est GFR ( Amer) Est GFR (Non-Af Amer) BUN/Creatinine Ratio (10-20) Glucose (70-99) mg/dl Lactate (0.4-2.0) mmol/L Calcium (8.5-10.1) mg/dl Total Bilirubin (0.2-1) mg/dl AST (15-37) U/L ALT (12-78) U/L Alkaline Phosphatase (45-117) U/L Ammonia Cancelled 13.3 Troponin I (0-0.045) ng/ml Total Protein (6.4-8.2) gm/dl Albumin (3.4-5.0) gm/dl Globulin (2.5-4.0) gm/dl Albumin/Globulin Ratio (0.9-2) TSH (0.300-4.500) uIu/ml 12/15/18 12/15/18 Range/Units 05:36 05:36 WBC 15.04 H RBC 2.73 L Hgb 7.7 L Hct 23.0 L MCV 84.2 MCH 28.2 MCHC 33.5 RDW Std Deviation 72.7 H RDW Coeff of Matthew 24.6 H Plt Count 470 H MPV 9.8 Immature Gran % (Auto) Neut % (Auto) Lymph % (Auto) Perry % (Auto) Eos % (Auto) Baso % (Auto) Immature Gran # (Auto) Neut # (Auto) Lymph # (Auto) Perry # (Auto) Eos # (Auto) Baso # (Auto) Absolute Nucleated RBC 0.02 H Nucleated RBC % (auto) 0.1 Neutrophils % (Manual) Band Neutrophils % Lymphocytes % (Manual) Prolymphocyte % Reactive Lymphs % (Man) Monocytes % (Manual) Eosinophils % (Manual) Basophils % (Manual) Metamyelocytes % (Man) Myelocytes % (Man) Promyelocytes % (Man) Blast Cells % (Manual) Plasma Cell % (Manual) Other Cells % Nucleated RBC % Neutrophils # (Manual) Band Neutrophils # Total Absolute Neuts Lymphocytes # (Manual) Prolymphocyte # Reactive Lymphs # Total Abs Lymphocytes Monocytes # (Manual) Eosinophils # (Manual) Basophils # (Manual) Metamyelocytes # (Man) Myelocytes # (Manual) Promyelocytes # (Man) Blast Cells # (Man) Plasma Cell # (Manual) Other Cells # Nucleated RBCs # (Man) Hypersegmented Neuts Hyposegmented Neuts Hypogranular Neuts Large Granular Lymphs # Lrg Granular Lymphs Hairy Cells Smudge Cells Toxic Granulation Toxic Vacuolation Dohle Bodies Hoda Rods Platelet Estimate Hypogranular Platelets Clumped Platelets Giant Platelets Platelet Satelliting RBC Morphology Polychromasia Hypochromasia Poikilocytosis Basophilic Stippling Anisocytosis Microcytosis Macrocytosis Spherocytes Pappenheimer Bodies Sickle Cells Target Cells Tear Drop Cells Ovalocytes Stomatocytes [place] Bodies Echinocytes Acanthocytes (Spur) Rouleaux RBC Agglutinates Schistocytes RBC Morph Comment Sezary Cell Sodium 142 (136-145) mmol/L Potassium 3.1 L (3.5-5.1) mmol/L Chloride 106 (98-107) mmol/L Carbon Dioxide 24 (21-32) mmol/L Anion Gap 12.0 H (3-11) BUN 13 (7-18) mg/dl Creatinine 1.05 (0.6-1.2) mg/dl Est Cr Clr Drug Dosing 30.7 ml/min Est GFR ( Amer) 67.8 Est GFR (Non-Af Amer) 58.5 BUN/Creatinine Ratio 11.9 (10-20) Glucose 86 (70-99) mg/dl Lactate (0.4-2.0) mmol/L Calcium 7.6 L (8.5-10.1) mg/dl Total Bilirubin (0.2-1) mg/dl AST (15-37) U/L ALT (12-78) U/L Alkaline Phosphatase (45-117) U/L Ammonia Troponin I (0-0.045) ng/ml Total Protein (6.4-8.2) gm/dl Albumin (3.4-5.0) gm/dl Globulin (2.5-4.0) gm/dl Albumin/Globulin Ratio (0.9-2) TSH (0.300-4.500) uIu/ml Imaging Data Radiologist's Impression: Radiology results as stated below per my review and the radiologist's interpretation: XR chest 1V portable CLINICAL HISTORY: 58 years-old Female presenting with weakness. TECHNIQUE: Portable upright AP view of the chest was obtained. COMPARISON: 08/22/2018. FINDINGS: Left subclavian Mediport terminates in the mid SVC. Atherosclerosis of the aortic arch. Cardiac silhouette normal in size. Lungs are hyperinflated. No fo chris opacity. No pleural effusion or pneumothorax. Osteopenia suspected. Upper abdomen normal. IMPRESSION: 1. Findings suggest emphysema. No focal infiltrate to suggest pneumonia. Electronically signed by: Mark Stark M.D. 12/14/2018 10:[address]AST CT DOSE: 767.83 mGy.cm HISTORY: Altered mental status. AMS, cervical cancer TECHNIQUE: Multiaxial CT images of the head were performed without the use of intravenous contrast. Automated exposure control was utilized for this study. A dose lowering technique was utilized adhering to the principles of ALARA. Comparison: Head CT 04/04/2017. Findings: The paranasal sinuses and mastoid air cells are clear. The calvarium and skull base are intact. The ventricles and sulci are within normal limits. There is no mass, hematoma, midline shift, or acute infarct. Impression: No acute intracranial abnormality. Electronically signed by: Junior Velazquez M.D. 12/15/2018 7:07 AM Dictated: 12/15/18705 Transcribed: 12/15/18705 ECG Data Attestation: I personally reviewed and interpreted this ECG as follows: Indication: altered mental status Rate (beats per minute): 96 Rhythm: normal sinus Findings: + other (Poor quality baseline for interpreation; left posterior fascicular block; Previous inferior infarct) Comparison ECG Date: from (08/22/18) Change: no significant change Blood Pressure Blood Pressure Findings: Normal blood pressure MDM Narrative THis pt was evaluated and appeared to be in no distress. IV access was obtained and lab work was drawn. PT was hydrated with NSS. Pt remained afebrile but slightly tachycardic. Lab work reveals a mild leukocytosis and K+ of 3.2. CXR is clear. Lab work was difficult to obtain, there was a delay. After blood cultures were drawn, pt was given IV zosyn for emperic coverage. UA was ordered but pending. Head CT is negative for acute intracranial process. Pt was discussed with Dr Cowan [place] [facility] [place]. HE will evaluate the pt for further management. Impression & Plan AMS (altered mental status), Cervical cancer Discharge Plan Visit Data *Final* Discharge Date/Time: 12/15/18 02:18 Chief Complaint: Illness Stated Complaint: AMS ED Provider: Zulma Samaniego Discharge Problem: AMS (altered mental status), Cervical cancer Patient Disposition: Admitted As Inpatient Discharge Instructions Interventions: ED Discharge Assessment Last Done: 12/15/18 02:18 Discharge Problem: AMS (altered mental status) Qualifiers: Altered mental status type: disorientation Qualified Code(s): R41.0 - Disorientation, unspecified Cervical cancer Qualifiers: Malignant neoplasm of cervix location: unspecified location Qualified Code(s): C53.9 - Malignant neoplasm of cervix uteri, unspecified The scribe's documentation has been prepared under my direction and personally reviewed by me in its entirety. I confirm that the note above accurately reflects all work, treatment, procedures, and medical decision making performed by me.
--- NOTE | 2018-12-15 01:59 | History & Physical Report ---
Date of Service December 15, 2018 Assessment & Plan (1) UTI (urinary tract infection): Zosyn - as she has history of complicated UTI (2) Hypokalemia: Replacing in IVF D5nss with 20meq KCL recheck in am (3) Cachexia: Dietary consult (4) Severe protein-calorie malnutrition: (5) Anemia: Follow HGB (6) Cervical cancer: Patient had chemo 2 weeks prior. She follows with [facility]/onc Dr. Mccarthy. DVT prophylaxis = SCDs and sub-q heparin. History of Present Illness 58 y/o female presented to the ED with complaints of decreased appetite, loose stools, fever to 100F and associated confusion. 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 Last chemo was 2 weeks prior. Patient declines having chest pain, SOB, cough, vomiting, or headache. She has history of UTIs. She feels extremely weak. She has not yet decided on hospice or palliative care and remains a full code. The patient did vomit in the ED. Primary Care Provider: Anita Goodwin MD Allergies Allergy/AdvReac Type Severity Reaction Status Date / Time No Known Drug Allergies Allergy . Verified 12/14/18 23:47 Home Medications Home Medications Medication Instructions Recorded Confirmed Type dicyclomine 20 mg PO Q6 PRN 12/25/17 12/14/18 History morphine 15 mg PO Q8 12/25/17 12/14/18 History Combivent Respimat 1 puff INHALATION QID 01/06/18 12/14/18 History ondansetron 4 mg PO Q6H PRN #30 ea 08/22/18 12/14/18 Rx mirtazapine 45 mg tablet 45 mg PO HS #30 tab 09/01/18 12/14/18 Rx valacyclovir 1 gram tablet 100 mg PO TID PRN #21 tab 09/07/18 12/14/18 History dronabinol 5 mg capsule 5 mg PO BID #60 cap 09/29/18 12/14/18 Rx hydroxyzine pamoate 50 mg capsule 50 mg PO TID PRN #60 cap 09/29/18 12/14/18 Rx omeprazole 20 mg capsule,delayed 20 mg PO BID #60 cap 09/29/18 12/14/18 Rx release lorazepam 1 mg tablet 1 mg PO TID PRN #90 tab 11/25/18 12/14/18 Rx Chemotherapy Drug 1 dose DIRECTED 12/14/18 12/14/18 History magnesium oxide 400 mg PO DAILY 12/14/18 12/14/18 History potassium chloride 10 meq PO DAILY 12/14/18 12/14/18 History Past Med/Surg History Medical History Chronic kidney disease, stage 3a (Chronic) pt denies COPD (chronic obstructive pulmonary disease) (Chronic) Generalized anxiety disorder (Chronic) Depression (Chronic) GERD (gastroesophageal reflux disease) (Chronic) Low back pain (Chronic) Alcohol overdose Cervical cancer mets to bladder -- chemotherapy currently. History of diverticulitis Kidney stones Partial small bowel obstruction Port-A-Cath in place Recurrent ventral incisional hernia Small bowel obstruction Vomiting Surgical History H/O colonoscopy "06/02/14- The examined portion of the ileum was normal. Normal mucosa in the entire examined colon. Fluid aspiration performed. Patent functional end-to-end colo-colonic anastomosis. Biopsies normal. 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 History of tonsillectomy Hx of dilation and curettage Hx of hernia repair "2007- incisional hernia repair with mesh" Hx of laparoscopy "2008- with extensive adhesiolysis, laparoscopic incisional hernia repairs with with mesh" S/P exploratory laparotomy "with extensive lysis of adhesions; resection of colorectal anastamosis; stapled end to end colorectal anastomosis w/completion proctoscopy" Status post small bowel resection hx Family History Sister Diabetes Other Lung disease Social History Preferred Language: Romansh Communication Ability: Effective 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 Eyes- no acute visual changes ENT- no sinus drainage; no pharyngitis Pulmonary- no cough, no wheezing, no shortness of breath Cardiac- no chest pain, no palpitations, no orthopnea, no dependent edema GI- no melena, no hematochezia - no hematuria Musculoskeletal- + chronic low back pain. Derm- no rashes, no new skin lesions, no changing skin lesions Hematologic- no unusual bruising, no unusual bleeding Lymphatics- no adenopathy Endocrine- no polyuria or polydipsia; no heat or cold intolerance Neuro- no headaches, no focal neurologic symptoms Psych- + anxiety, no depression Physical Exam Physical Exam: NEEDS EDITING General- adult female appears cachectic. Head- atraumatic Eyes- PERRL, EOMI, anicteric ENT- oropharynx clear Neck- supple, no JVD, no adenopathy, no thyromegaly. Lungs- clear to auscultation No wheezes, rales, or rhonchi. Heart- regular rhythm; no murmur, no gallop, no rub appreciated Abdomen- normal bowel sounds, soft, nontender. Extremities- no pretibial edema, no calf tenderness; peripheral pulses intact Neuro- alert, oriented x 3; PERRL, EOMI, yeast stacker II-XII grossly intact, Non-focal. Skin- warm & dry Results & Data Vital Signs (Past 12 Hours) Vital Signs Temp Pulse Pulse Resp BP BP Pulse Ox 12/14/18 23:26 104 H 20 130/70 100 12/14/18 21:30 136/64 12/14/18 21:20 16 12/14/18 21:10 95 H 22 12/14/18 21:02 92 H 14 12/14/18 21:00 97 H 16 148/77 H 12/14/18 20:48 37.3 C 100 H 20 120/62 97 Laboratory Results Laboratory Results WBC 13.98 K/uL (4.8-10.8) H 12/14/18 22:33 RBC 2.89 M/uL (4.2-5.4) L 12/14/18 22:33 Hgb 8.0 g/dL (12.0-16.0) L 12/14/18 22:33 Hct 24.0 % (37-47) L 12/14/18 22:33 MCV 83.0 fL (80-100) 12/14/18 22:33 MCH 27.7 pg (25-34) 12/14/18 22: MCHC 33.3 g/dL (32-36) 12/14/18 22:33 RDW Std Deviation 71.7 fL (36.4-46.3) H 12/14/18 22:33 RDW Coeff of Matthew 24.5 % (11.5-14.5) H 12/14/18 22: Plt Count 440 K/uL (130-400) H 12/14/18 22:33 MPV 9.7 fL (7.4-10.4) 12/14/18 22:33 Immature Gran % (Auto) 0.6 % 12/14/18 22:33 Neut % (Auto) 83.3 % 12/14/18 22:33 Lymph % (Auto) 6.2 % 12/14/18 22:33 Ward % (Auto) 9.7 % 12/14/18 22:33 Eos % (Auto) 0.1 % 12/14/18 22:33 Baso % (Auto) 0.1 % 12/14/18 22:33 Immature Gran # (Auto) 0.09 K/uL (0.00-0.02) H 12/14/18 22:33 Neut # (Auto) 11.64 K/uL (1.4-6.5) H 12/14/18 22:33 Lymph # (Auto) 0.87 K/uL (1.2-3.4) L 12/14/18 22:33 Ward # (Auto) 1.36 K/uL (0.11-0.59) H 12/14/18 22:33 Eos # (Auto) 0.01 K/uL (0-0.5) 12/14/18 22:33 Baso # (Auto) 0.01 K/uL (0-0.2) 12/14/18 22:33 Absolute Nucleated RBC 0.02 K/uL (0-0) H 12/14/18 22:33 Nucleated RBC % (auto) 0.1 % 12/14/18 22:33 Neutrophils % (Manual) Cancelled 12/14/18 21:51 Band Neutrophils % Cancelled 12/14/18 21:51 Lymphocytes % (Manual) Cancelled 12/14/18 21:51 Prolymphocyte % Cancelled 12/14/18 21:51 Reactive Lymphs % (Man) Cancelled 12/14/18 21:51 Monocytes % (Manual) Cancelled 12/14/18 21:51 Eosinophils % (Manual) Cancelled 12/14/18 21:51 Basophils % (Manual) Cancelled 12/14/18 21:51 Metamyelocytes % (Man) Cancelled 12/14/18 21:51 Myelocytes % (Man) Cancelled 12/14/18 21:51 Promyelocytes % (Man) Cancelled 12/14/18 21:51 Blast Cells % (Manual) Cancelled 12/14/18 21:51 Plasma Cell % (Manual) Cancelled 12/14/18 21:51 Other Cells % Cancelled 12/14/18 21:51 Nucleated RBC % Cancelled 12/14/18 21:51 Neutrophils # (Manual) Cancelled 12/14/18 21:51 Band Neutrophils # Cancelled 12/14/18 21:51 Total Absolute Neuts Cancelled 12/14/18 21:51 Lymphocytes # (Manual) Cancelled 12/14/18 21:51 Prolymphocyte # Cancelled 12/14/18 21:51 Reactive Lymphs # Cancelled 12/14/18 21:51 Total Abs Lymphocytes Cancelled 12/14/18 21:51 Monocytes # (Manual) Cancelled 12/14/18 21:51 Eosinophils # (Manual) Cancelled 12/14/18 21:51 Basophils # (Manual) Cancelled 12/14/18 21:51 Metamyelocytes # (Man) Cancelled 12/14/18 21:51 Myelocytes # (Manual) Cancelled 12/14/18 21:51 Promyelocytes # (Man) Cancelled 12/14/18 21:51 Blast Cells # (Man) Cancelled 12/14/18 21:51 Plasma Cell # (Manual) Cancelled 12/14/18 21:51 Other Cells # Cancelled 12/14/18 21:51 Nucleated RBCs # (Man) Cancelled 12/14/18 21:51 Hypersegmented Neuts Cancelled 12/14/18 21:51 Hyposegmented Neuts Cancelled 12/14/18 21:51 Hypogranular Neuts Cancelled 12/14/18 21:51 Large Granular Lymphs Cancelled 12/14/18 21:51 # Lrg Granular Lymphs Cancelled 12/14/18 21:51 Hairy Cells Cancelled 12/14/18 21:51 Smudge Cells Cancelled 12/14/18 21:51 Toxic Granulation Cancelled 12/14/18 21:51 Toxic Vacuolation Cancelled 12/14/18 21:51 Dohle Bodies Cancelled 12/14/18 21:51 Hoda Rods Cancelled 12/14/18 21:51 Platelet Estimate Cancelled 12/14/18 21:51 Hypogranular Platelets Cancelled 12/14/18 21:51 Clumped Platelets Cancelled 12/14/18 21:51 Giant Platelets Cancelled 12/14/18 21:51 Platelet Satelliting Cancelled 12/14/18 21:51 RBC Morphology Cancelled 12/14/18 21:51 Polychromasia Cancelled 12/14/18 21:51 Hypochromasia Present 12/14/18 22:33 Poikilocytosis Cancelled 12/14/18 21:51 Basophilic Stippling Cancelled 12/14/18 21:51 Anisocytosis Present 12/14/18 22:33 Microcytosis Cancelled 12/14/18 21:51 Macrocytosis Cancelled 12/14/18 21:51 Spherocytes Cancelled 12/14/18 21:51 Pappenheimer Bodies Cancelled 12/14/18 21:51 Sickle Cells Cancelled 12/14/18 21:51 Target Cells Cancelled 12/14/18 21:51 Tear Drop Cells Cancelled 12/14/18 21:51 Ovalocytes 1+ 12/14/18 22:33 Stomatocytes Cancelled 12/14/18 21:51 Fong-Sabin Bodies Cancelled 12/14/18 21:51 Echinocytes Cancelled 12/14/18 21:51 Acanthocytes (Spur) Cancelled 12/14/18 21:51 Rouleaux Cancelled 12/14/18 21:51 RBC Agglutinates Cancelled 12/14/18 21:51 Schistocytes Cancelled 12/14/18 21:51 RBC Morph Comment Cancelled 12/14/18 21:51 Sezary Cell Cancelled 12/14/18 21:51 Sodium 138 mmol/L (136-145) 12/14/18 21:51 Potassium 3.2 mmol/L (3.5-5.1) L 12/14/18 21:51 Chloride 104 mmol/L (98-107) 12/14/18 21:51 Carbon Dioxide 22 mmol/L (21-32) 12/14/18 21:51 Anion Gap 12.0 (3-11) H 12/14/18 21:51 BUN 14 mg/dl (7-18) 12/14/18 21:51 Creatinine 0.85 mg/dl (0.6-1.2) 12/14/18 21:51 Est Cr Clr Drug Dosing 40.8 ml/min 12/14/18 21:51 Est GFR ( Amer) 87.5 12/14/18 21:51 Est GFR (Non-Af Amer) 75.5 12/14/18 21:51 BUN/Creatinine Ratio 15.9 (10-20) 12/14/18 21:51 Glucose 74 mg/dl (70-99) 12/14/18 21:51 Lactate 1.5 mmol/L (0.4-2.0) 12/14/18 21:51 Calcium 7.7 mg/dl (8.5-10.1) L 12/14/18 21:51 Total Bilirubin 0.5 mg/dl (0.2-1) 12/14/18 21:51 AST 14 U/L (15-37) L 12/14/18 21:51 ALT 10 U/L (12-78) L 12/14/18 21:51 Alkaline Phosphatase 97 U/L (45-117) 12/14/18 21:51 Ammonia 13.3 umol/L (11-32) 12/14/18 23:49 Troponin I < 0.015 ng/ml (0-0.045) 12/14/18 21:51 Total Protein 5.2 gm/dl (6.4-8.2) L 12/14/18 21:51 Albumin 1.7 gm/dl (3.4-5.0) L 12/14/18 21:51 Globulin 3.5 gm/dl (2.5-4.0) 12/14/18 21:51 Albumin/Globulin Ratio 0.5 (0.9-2) L 12/14/18 21:51 TSH 3.050 uIu/ml (0.300-4.500) 12/14/18 21:51 Code Status & VTE Plan VTE Prophylaxis Plan VTE Prophylaxis will be ordered: Yes PG Care Time/CCT Total # of Minutes Spent Total Time Spent: 60 Total Time Spent with Patient: Total time spent is greater than 50% in coordination of care (as documented) at patient's floor/unit and/or counseling patient: (1) Cervical cancer Malignant neoplasm of cervix location: unspecified location Qualified Code(s): C53.9 - Malignant neoplasm of cervix uteri, unspecified
[2018-12-15] MEDS ORDERED: ALBUTEROL 0.083% NEBU SOLN 3 ML VIAL NEB PRN (02:42)
[2018-12-15] MEDS ORDERED: MoRPHine SULFATE 4 MG/ML 1 ML CARP\\VIAL IV PRN (02:42)
[2018-12-15] MEDS: D5NSS + 20MEQ KCL 20 MEQ/1,000 ML BAG IV SCH ×3 (03:19→19:56)
[2018-12-15] MEDS: MoRPHine SULFATE CR 15 MG TABCR PO SCH ×3 (05:21→22:40)
[2018-12-15] MEDS: HEPARIN SOD 5,000 UNIT/0.5 ML VIAL SQ SCH ×3 (05:22→22:40)
[2018-12-15 05:59] LABS: Hemoglobin 7.7 g/dL (12.0-16.0); Mean Corpuscular Hemoglobin 28.2 pg (25-34); Mean Corpuscular Hgb Conc 33.5 g/dL (32-36); Mean Corpuscular Volume 84.2 fL (80-100); Mean Platelet Volume 9.8 fL (7.4-10.4); Nucleated RBC # (auto) 0.02 K/uL (0-0); Nucleated RBC % (auto) 0.1 %; Platelet Count 470 K/uL (130-400); RDW Coefficient of Variation 24.6 % (11.5-14.5); RDW Standard Deviation 72.7 fL (36.4-46.3); Red Blood Count 2.73 M/uL (4.2-5.4); White Blood Count 15.04 K/uL (4.8-10.8)
[2018-12-15 06:25] LABS: BUN Creatinine Ratio 11.9 (10-20); Calcium 7.6 mg/dl (8.5-10.1); Creatinine Clr Calc Pharmacy 30.7 ml/min; Est GFR (African American) 67.8; Est GFR (Non-African American) 58.5; Potassium 3.1 mmol/L (3.5-5.1)
--- NOTE | 2018-12-15 07:09 | CT Scan Report ---
HEAD CT NONCONTRAST CT DOSE: 767.83 mGy.cm HISTORY: Altered mental status. AMS, cervical cancer TECHNIQUE: Multiaxial CT images of the head were performed without the use of intravenous contrast. A utomated exposure control was utilized for this study. A dose lowering technique was utilized adheri ng to the principles of ALARA. Comparison: Head CT 04/04/2017. Findings: The paranasal sinuses and mastoid air cells are clear. The calvarium and skull base are int act. The ventricles and sulci are within normal limits. There is no mass, hematoma, midline shift, or acute infarct. Impression: No acute intracranial abnormality. Electronically signed by: Junior Velazquez M.D. 12/15/2018 7:07 AM
[2018-12-15] MEDS ORDERED: INFLUENZA ADMINISTRATION CHARGE ONE (08:00)
[2018-12-15] MEDS ORDERED: INFLUENZA VIRUS QUAD VACCINE 0.5 ML SYR IM ONE (08:00)
[2018-12-15] MEDS ORDERED: POTASSIUM CHLORIDE 20 MEQ TABCR PO STA (08:47)
[2018-12-15] MEDS: PIPERACILLIN/TAZOBACTAM 3.375 GM in DEXTROSE 5% 100 ML IV SCH ×3 (09:06→23:55)
[2018-12-15] MEDS: MAGNESIUM OXIDE 400 MG TAB PO SCH (09:09)
[2018-12-15] MEDS: POTASSIUM CHLORIDE 10 MEQ TABCR PO SCH (09:09)
[2018-12-15] MEDS: PANTOprazole 40 MG TAB PO SCH ×2 (09:09→20:08)
[2018-12-15] MEDS: IPRATROPIUM BROMIDE/ALBUTEROL respimat INH INH SCH ×4 (09:13→20:07)
[2018-12-15] MEDS: ONDANSETRON INJ 2 MG/ML 2 ML VIAL IV PRN (10:26)
[2018-12-15] MEDS ORDERED: PROMETHAZINE HCL 12.5 MG in SODIUM CHLORIDE 0.9% 50 ML IV PRN (11:21)
[2018-12-15] MEDS ORDERED: POTASSIUM CHLORIDE 20 MEQ/15 ML UDC PO STA (13:42)
[2018-12-15] MEDS ORDERED: POTASSIUM CHLORIDE 20 MEQ TABCR PO ONE (14:00)
[2018-12-15] MEDS: LORazepam 1 MG TAB PO PRN (14:12)
--- NOTE | 2018-12-15 15:17 | Hospitalist Progress Note ---
Date of Service December 15, 2018 Assessment & Plan (1) UTI (urinary tract infection): Zosyn - as she has history of complicated UTI with vesicovaginal fistula Urinalysis and culture was not collected - at this point with 24 hours of abx not likely to yield result UC from July showed resistant E.Coli susceptible to Zosyn (2) Hypokalemia: Replacing in IVF D5nss with 20meq KCL Po replacement - potassium elixer as patient has difficulty with the large potassium pills (3) Cachexia: Dietary consult continue home Marinol (4) Severe protein-calorie malnutrition: As above (5) Anemia: Hgb 7.7 today, no obvious s/s of bleeding - bp stable with mild tachycardia Will repeat hgb in the morning (6) Cervical cancer: Patient had chemo 2 weeks prior. She follows with [facility]/onc Dr. Mccarthy. DVT prophylaxis = SCDs and sub-q heparin. Subjective Ms. Garcia continues to feel unwell with aches and chills. Afebrile. She has pain over her tailbone Review of Systems Review of Systems: All systems reviewed & are unremarkable except as noted in HPI & below Physical Exam Physical Exam: General: cachetic Eyes: normal inspection, PERLL Respiratory: chest non tender, clear to auscultation, normal breath sounds, no respiratory distress, no accessory muscle use Cardiac: regular rate and rhythm, no rub or gallop, no murmur, no edema, no jvd GI/: active bowel sounds, no abd pain or tenderness, soft, non distended Extremities: normal range of motion, normal strength, non tender Neuro/Psych: alert and oriented x 3, normal mood and affect Skin: normal color, dry Results & Data Vital Signs (Past 12 Hours) Vital Signs Temp Pulse Resp BP Pulse Ox 12/15/18 06:55 36.5 C 95 H 18 113/69 99 PG Care Time/CCT Total # of Minutes Spent Total Time Spent with Patient: Total time spent is greater than 50% in coordination of care (as documented) at patient's floor/unit and/or counseling patient: (1) Cervical cancer Malignant neoplasm of cervix location: unspecified location Qualified C ode(s): C53.9 - Malignant neoplasm of cervix uteri, unspecified
[2018-12-15 16:40] LABS: Cdiff Antigen Positive; Cdiff Toxin A+B Negative Cdiff Toxin (Negative)
[2018-12-15] MEDS: MoRPHine SULFATE 2 MG/ML CARP IV PRN (20:00)
[2018-12-15] MEDS: MIRTAZAPINE TAB 15 MG TAB PO SCH (20:08)
[2018-12-16] MEDS: LORazepam 1 MG TAB PO PRN ×2 (00:04→10:29)
[2018-12-16] MEDS: D5NSS + 20MEQ KCL 20 MEQ/1,000 ML BAG IV SCH ×2 (03:48→18:41)
[2018-12-16] MEDS: HEPARIN SOD 5,000 UNIT/0.5 ML VIAL SQ SCH ×3 (05:44→21:28)
[2018-12-16] MEDS: MoRPHine SULFATE CR 15 MG TABCR PO SCH ×3 (05:44→21:28)
[2018-12-16 06:35] LABS: Hematocrit (blood only) 17.9 % (37-47); Hemoglobin 5.8 g/dL (12.0-16.0); Mean Corpuscular Hemoglobin 27.5 pg (25-34); Mean Corpuscular Hgb Conc 32.4 g/dL (32-36); Mean Corpuscular Volume 84.8 fL (80-100); Mean Platelet Volume 9.4 fL (7.4-10.4); Platelet Count 315 K/uL (130-400); RDW Coefficient of Variation 25.1 % (11.5-14.5); RDW Standard Deviation 74.6 fL (36.4-46.3); Red Blood Count 2.11 M/uL (4.2-5.4); White Blood Count 8.21 K/uL (4.8-10.8)
[2018-12-16 06:57] LABS: BUN Creatinine Ratio 7.8 (10-20); Calcium 7.1 mg/dl (8.5-10.1); Creatinine Clr Calc Pharmacy 34.7 ml/min; Est GFR (African American) 78.5; Est GFR (Non-African American) 67.7; Potassium 3.7 mmol/L (3.5-5.1)
[2018-12-16] MEDS ORDERED: SODIUM CHLORIDE 0.9% 250 ML IV PRN (07:08)
[2018-12-16] MEDS: MoRPHine SULFATE 2 MG/ML CARP IV PRN ×2 (07:46→15:54)
[2018-12-16] MEDS: PIPERACILLIN/TAZOBACTAM 3.375 GM in DEXTROSE 5% 100 ML IV SCH ×2 (07:56→18:41)
[2018-12-16] MEDS: IPRATROPIUM BROMIDE/ALBUTEROL respimat INH INH SCH ×4 (07:57→20:07)
[2018-12-16] MEDS: PANTOprazole 40 MG TAB PO SCH ×2 (08:00→20:08)
[2018-12-16] MEDS: POTASSIUM CHLORIDE 10 MEQ TABCR PO SCH (08:00)
[2018-12-16] MEDS: MAGNESIUM OXIDE 400 MG TAB PO SCH (08:00)
--- NOTE | 2018-12-16 16:21 | Hospitalist Progress Note ---
Date of Service December 16, 2018 Assessment & Plan (1) UTI (urinary tract infection): Continue IV Zosyn - as she has history of complicated UTI with vesicovaginal fistula Urinalysis and culture was not collected - at this point with 24 hours of abx not likely to yield result UC from July showed resistant E.Coli susceptible to Zosyn BC growing gram negative bacilli x1 vial (2) Hypokalemia: replaced (3) Cachexia: Dietary consult continue home Marinol (4) Severe protein-calorie malnutrition: As above (5) Anemia: Hgb 5.8 today, no obvious s/s of bleeding - 2 units prbcs 12/16 Will repeat hgb in the morning (6) Cervical cancer: Patient had chemo 2 weeks prior. She follows with [facility]/onc Dr. Mccarthy. DVT prophylaxis = SCDs and sub-q heparin. Supervising Physician Co-Signing Physician Notes I supervised oTnya Belcher NP on this patient's care. I examined the patient today independently of her. I discussed the plan of care with her with the plan being as written in her note except for any following changes/exceptions: None. Continues to be tired today. No signs of bleeding. Will replete PRBCs and continue to treat infection. Subjective Ms. Garcia feels about the same today as yesterday, generally unwell. She was afebrile overnight Review of Systems Review of Systems: All systems reviewed & are unremarkable except as noted in HPI & below Physical Exam Physical Exam: General: cachectic, no distress Eyes: normal inspection, PERLL Respiratory: chest non tender, clear to auscultation, normal breath sounds, no respiratory distress, no accessory muscle use Cardiac: regular rate and rhythm, no rub or gallop, no murmur, no edema, no jvd GI/: active bowel sounds, no abd pain or tenderness, soft, non distended Extremities: normal range of motion, normal strength, non tender Neuro/Psych: alert and oriented x 3, normal mood and affect Skin: normal color, dry Results & Data Vital Signs (Past 12 Hours) Vital Signs Temp Pulse Pulse Resp BP BP Pulse Ox 12/16/18 16:06 36.8 C 86 18 99/66 L 100 12/16/18 15:59 36.7 C 86 18 105/69 99 12/16/18 13:08 36.6 C 83 16 122/80 99 12/16/18 11:50 36.6 C 85 16 87/51 L 97 12/16/18 10:50 36.6 C 81 17 90/51 L 96 12/16/18 10:20 36.3 C L 89 18 107/75 99 12/16/18 10:05 36.7 C 76 18 89/62 L 100 12/16/18 09:47 36.5 C 84 18 91/61 L 100 12/16/18 07:33 37.0 C 84 16 85/50 L 100 PG Care Time/CCT Total # of Minutes Spent Total Time Spent with Patient: Total time spent is greater than 50% in coordination of care (as documented) at patient's floor/unit and/or counseling patient: (1) Cervical cancer Malignant neoplasm of cervix location: unspecified location Qualified Code(s): C53.9 - Malignant neoplasm of cervix uteri, unspecified
[2018-12-16] MEDS: MIRTAZAPINE TAB 15 MG TAB PO SCH (20:08)
[2018-12-17] MEDS: PIPERACILLIN/TAZOBACTAM 3.375 GM in DEXTROSE 5% 100 ML IV SCH ×2 (00:20→07:45)
[2018-12-17] MEDS: D5NSS + 20MEQ KCL 20 MEQ/1,000 ML BAG IV SCH ×3 (00:20→17:18)
[2018-12-17] MEDS: HEPARIN SOD 5,000 UNIT/0.5 ML VIAL SQ SCH ×4 (06:10→21:04)
[2018-12-17] MEDS: MoRPHine SULFATE CR 15 MG TABCR PO SCH ×3 (06:11→21:04)
[2018-12-17 07:09] LABS: Albumin Level 1.3 gm/dl (3.4-5.0); Bilirubin Direct 0.1 mg/dl (0-0.2); Bilirubin,Total 0.5 mg/dl (0.2-1); Total Protein 4.8 gm/dl (6.4-8.2)
[2018-12-17] MEDS: MoRPHine SULFATE 2 MG/ML CARP IV PRN ×3 (07:40→23:55)
[2018-12-17] MEDS: IPRATROPIUM BROMIDE/ALBUTEROL respimat INH INH SCH ×4 (07:47→21:05)
[2018-12-17] MEDS: MAGNESIUM OXIDE 400 MG TAB PO SCH (07:48)
[2018-12-17] MEDS: PANTOprazole 40 MG TAB PO SCH ×2 (07:48→21:05)
[2018-12-17] MEDS: POTASSIUM CHLORIDE 10 MEQ TABCR PO SCH (07:48)
[2018-12-17 08:32] LABS: Basophils # (auto) 0.02 K/uL (0-0.2); Basophils % (auto) 0.2 %; Eosinophils # (auto) 0.06 K/uL (0-0.5); Eosinophils % (auto) 0.7 %; Hematocrit (blood only) 26.2 % (37-47); Hemoglobin 8.8 g/dL (12.0-16.0); Immature Granulocytes # (auto) 0.09 K/uL (0.00-0.02); Immature Granulocytes % (auto) 1.1 %; Lymphocytes # (auto) 1.24 K/uL (1.2-3.4); Lymphocytes % (auto) 15.1 %; Mean Corpuscular Hemoglobin 28.9 pg (25-34); Mean Corpuscular Hgb Conc 33.6 g/dL (32-36); Mean Corpuscular Volume 86.2 fL (80-100); Mean Platelet Volume 9.3 fL (7.4-10.4); Monocytes % (auto) 12.2 %; Neutrophils # (auto) 5.79 K/uL (1.4-6.5); Neutrophils % (auto) 70.7 %; Platelet Count 211 K/uL (130-400); RDW Coefficient of Variation 20.5 % (11.5-14.5); RDW Standard Deviation 61.2 fL (36.4-46.3); Red Blood Count 3.04 M/uL (4.2-5.4)
[2018-12-17 08:56] LABS: BUN Creatinine Ratio 5.6 (10-20); Calcium 6.4 mg/dl (8.5-10.1); Creatinine Clr Calc Pharmacy 34.7 ml/min; Est GFR (African American) 78.5; Est GFR (Non-African American) 67.7; Magnesium 1.1 mg/dl (1.8-2.4); Potassium 4.2 mmol/L (3.5-5.1)
[2018-12-17 08:57] LABS: Anisocytosis Present; Echinocytes 1+
[2018-12-17] MEDS: ONDANSETRON INJ 2 MG/ML 2 ML VIAL IV PRN ×2 (13:30→17:55)
[2018-12-17] MEDS: cefTRIAXone SODIUM 1,000 MG in DEXTROSE 5% 50 ML IV SCH (15:50)
--- NOTE | 2018-12-17 15:59 | Hospitalist Progress Note ---
Date of Service December 17, 2018 Assessment & Plan (1) UTI (urinary tract infection): She has history of complicated UTI with vesicovaginal fistula Urinalysis and culture was not collected - at this point with 24 hours of abx not likely to yield result UC from July showed resistant E.Coli susceptible to Zosyn BC growing providencia x1 vial - will de-escalate abx to ceftriaxone DC IVF for increased lower extremity edema (2) Hypokalemia: replaced (3) Cachexia: Dietary consult continue home Marinol (4) Severe protein-calorie malnutrition: As above (5) Anemia: Hgb 5.8 12/16 - no obvious s/s of bleeding - 2 units prbcs (6) Cervical cancer: Patient had chemo 2 weeks prior. [facility] Dr[facility] Mcc[facility]. DVT prophylaxis = SCDs and sub-q heparin. Subjective Ms. Garcia is feeling a little bit better but still has some aches and chills. She has been afebrile. Somewhat nauseas but able to eat and drink. Review of Systems Review of Systems: All systems reviewed & are unremarkable except as noted in HPI & below Physical Exam Physical Exam: General: no distress, cachectic Eyes: normal inspection, PERLL Respiratory: chest non tender, clear to auscultation, normal breath sounds, no respiratory distress, no accessory muscle use Cardiac: regular rate and rhythm, no rub or gallop, no murmur, +1 pitting edema lower extremities GI/: active bowel sounds, no abd pain or tenderness, soft, non distended Extremities: normal range of motion, normal strength, non tender Neuro/Psych: alert and oriented x 3, normal mood and affect Skin: normal color, dry Results & Data Vital Signs (Past 12 Hours) Vital Signs Temp Pulse Resp BP Pulse Ox 12/17/18 15:33 36.7 C 82 18 99/60 L 98 12/17/18 07:07 37.1 C 90 16 97/67 L 97 PG Care Time/CCT Total # of Minutes Spent Total Time Spent with Patient: Total time spent is greater than 50% in coordination of care (as documented) at patient's floor/unit and/or counseling patient: (1) Cervical cancer Malignant neoplasm of cervix location: unspecified location Qualified Code(s): C53.9 - Malignant neoplasm of cervix uteri, unspecified
[2018-12-17] MEDS: MIRTAZAPINE TAB 15 MG TAB PO SCH (21:06)
[2018-12-18] MEDS: D5NSS + 20MEQ KCL 20 MEQ/1,000 ML BAG IV SCH ×2 (00:47→08:32)
[2018-12-18] MEDS: LORazepam 1 MG TAB PO PRN ×2 (00:47→21:45)
[2018-12-18] MEDS ORDERED: Nursing to Pharmacy Communication ONE (00:50)
[2018-12-18] MEDS: MoRPHine SULFATE CR 15 MG TABCR PO SCH ×3 (05:51→21:45)
[2018-12-18] MEDS: HEPARIN SOD 5,000 UNIT/0.5 ML VIAL SQ SCH ×3 (05:51→21:47)
[2018-12-18] MEDS: MoRPHine SULFATE 2 MG/ML CARP IV PRN (07:35)
[2018-12-18] MEDS: MAGNESIUM OXIDE 400 MG TAB PO SCH ×2 (07:41→20:00)
[2018-12-18] MEDS: PANTOprazole 40 MG TAB PO SCH ×2 (07:41→20:06)
[2018-12-18] MEDS: IPRATROPIUM BROMIDE/ALBUTEROL respimat INH INH SCH ×4 (07:41→19:59)
[2018-12-18] MEDS: POTASSIUM CHLORIDE 10 MEQ TABCR PO SCH (07:42)
[2018-12-18] MEDS ORDERED: MAGNESIUM SULFATE / D5W 1 GM/100 ML BAG IV ONE (08:40)
[2018-12-18] MEDS ORDERED: MAGNESIUM OXIDE 400 MG TAB PO SCH (09:00)
[2018-12-18 09:05] LABS: Basophils # (auto) 0.02 K/uL (0-0.2); Basophils % (auto) 0.2 %; Eosinophils # (auto) 0.07 K/uL (0-0.5); Eosinophils % (auto) 0.8 %; Hematocrit (blood only) 30.2 % (37-47); Hemoglobin 9.9 g/dL (12.0-16.0); Immature Granulocytes # (auto) 0.12 K/uL (0.00-0.02); Immature Granulocytes % (auto) 1.4 %; Lymphocytes # (auto) 0.97 K/uL (1.2-3.4); Lymphocytes % (auto) 11.4 %; Mean Corpuscular Hemoglobin 28.6 pg (25-34); Mean Corpuscular Hgb Conc 32.8 g/dL (32-36); Mean Corpuscular Volume 87.3 fL (80-100); Mean Platelet Volume 9.8 fL (7.4-10.4); Monocytes # (auto) 0.92 K/uL (0.11-0.59); Monocytes % (auto) 10.8 %; Neutrophils # (auto) 6.39 K/uL (1.4-6.5); Neutrophils % (auto) 75.4 %; Platelet Count 215 K/uL (130-400); RDW Coefficient of Variation 21.2 % (11.5-14.5); RDW Standard Deviation 63.7 fL (36.4-46.3); Red Blood Count 3.46 M/uL (4.2-5.4); White Blood Count 8.49 K/uL (4.8-10.8)
[2018-12-18 09:34] LABS: BUN Creatinine Ratio 6.2 (10-20); Calcium 6.9 mg/dl (8.5-10.1); Creatinine Clr Calc Pharmacy 33.2 ml/min; Est GFR (African American) 74.6; Est GFR (Non-African American) 64.4; Magnesium 1.1 mg/dl (1.8-2.4); Potassium 4.6 mmol/L (3.5-5.1)
[2018-12-18 09:51] LABS: Phosphorus 1.2 mg/dl (2.5-4.9)
[2018-12-18 10:12] LABS: Anisocytosis Present; Poikilocytosis Present; Spherocytes Occasional
[2018-12-18] MEDS: HEPARIN 100 UNIT/ML 5ML FLUSH FLUSH PRN ×3 (11:20→17:57)
[2018-12-18] MEDS: ONDANSETRON INJ 2 MG/ML 2 ML VIAL IV PRN ×2 (13:26→17:55)
[2018-12-18] MEDS ORDERED: POT PHOSPHATE MONOBASIC W/ SOD TAB PO SCH (14:30)
--- NOTE | 2018-12-18 14:58 | Hospitalist Progress Note ---
Date of Service December 18, 2018 Assessment & Plan (1) UTI (urinary tract infection): She has history of complicated UTI with vesicovaginal fistula Urinalysis and culture was not collected - at this point with 24 hours of abx not likely to yield result UC from July showed resistant E.Coli susceptible to Zosyn BC growing providencia x1 vial - will de-escalate abx to ceftriaxone DC IVF for increased lower extremity edema (2) Hypokalemia: replaced (3) Cachexia: Dietary consult continue home Marinol (4) Severe protein-calorie malnutrition: As above (5) Anemia: Hgb 5.8 10/2 - no obvious s/s of bleeding - 2 units prbcs (6) Cervical cancer: Patient had chemo 2 weeks prior. She follows with [facility] heme/onc Dr. Mccarthy. (7) Hypophosphatemia: Phos 1.2 - will start Kphos po 2 tabs QID May be contributing to weakness Recheck am (8) Hypomagnesemia: Will increase po mag to bid Given 1gm IV mag repeat level am (9) DVT prophylaxis: SCDs, subq heparin Dispo: plans to return home with fiance at discharge Subjective Ms. Garcia continues to feel very weak but otherwise has no complaints. Review of Systems Review of Systems: All systems reviewed & are unremarkable except as noted in HPI & below Physical Exam Physical Exam: General: no distress Eyes: normal inspection, PERLL Respiratory: chest non tender, clear to auscultation, normal breath sounds, no respiratory distress, no accessory muscle use Cardiac: regular rate and rhythm, no rub or gallop, no murmur, no edema, no jvd GI/: active bowel sounds, no abd pain or tenderness, soft, non distended Extremities: normal range of motion, normal strength, non tender Neuro/Psych: alert and oriented x 3, normal mood and affect Skin: normal color, dry Results & Data Vital Signs (Past 12 Hours) Vital Signs Temp Pulse Resp BP Pulse Ox 12/18/18 07:03 36.9 C 81 16 126/78 99 PG Care Time/CCT Total # of Minutes Spent Total Time Spent with Patient: Total time spent is greater than 50% in co ordination of care (as documented) at patient's floor/unit and/or counseling patient: (1) Cervical cancer Malignant neoplasm of cervix location: unspecified location Qualified Code(s): C53.9 - Malignant neoplasm of cervix uteri, unspecified
[2018-12-18] MEDS: cefTRIAXone SODIUM 1,000 MG in DEXTROSE 5% 50 ML IV SCH (16:31)
[2018-12-18] MEDS: POT PHOSPHATE MONOBASIC W/ SOD TAB PO SCH (20:00)
[2018-12-18] MEDS: MIRTAZAPINE TAB 15 MG TAB PO SCH (20:01)
[2018-12-19] MEDS: MoRPHine SULFATE CR 15 MG TABCR PO SCH ×3 (05:40→21:42)
[2018-12-19] MEDS: HEPARIN SOD 5,000 UNIT/0.5 ML VIAL SQ SCH ×3 (05:41→21:43)
[2018-12-19] MEDS: HEPARIN 100 UNIT/ML 5ML FLUSH FLUSH PRN ×6 (06:08→22:52)
[2018-12-19 08:39] LABS: Hematocrit (blood only) 27.7 % (37-47); Hemoglobin 9.2 g/dL (12.0-16.0); Mean Corpuscular Hemoglobin 28.6 pg (25-34); Mean Corpuscular Hgb Conc 33.2 g/dL (32-36); Mean Platelet Volume 9.9 fL (7.4-10.4); Platelet Count 219 K/uL (130-400); RDW Coefficient of Variation 21.3 % (11.5-14.5); RDW Standard Deviation 64.5 fL (36.4-46.3); Red Blood Count 3.22 M/uL (4.2-5.4); White Blood Count 7.85 K/uL (4.8-10.8)
[2018-12-19 08:55] LABS: BUN Creatinine Ratio 8.3 (10-20); Calcium 7.3 mg/dl (8.5-10.1); Creatinine Clr Calc Pharmacy 41.9 ml/min; Est GFR (African American) 98.6; Est GFR (Non-African American) 85.1; Magnesium 1.5 mg/dl (1.8-2.4); Potassium 4.3 mmol/L (3.5-5.1)
[2018-12-19 08:56] LABS: Phosphorus 2.8 mg/dl (2.5-4.9)
[2018-12-19] MEDS ORDERED: MAGNESIUM SULFATE / D5W 1 GM/100 ML BAG IV ONE (09:01)
[2018-12-19] MEDS: MAGNESIUM OXIDE 400 MG TAB PO SCH ×2 (09:30→20:53)
[2018-12-19] MEDS: ONDANSETRON INJ 2 MG/ML 2 ML VIAL IV PRN ×2 (09:30→17:47)
[2018-12-19] MEDS: PANTOprazole 40 MG TAB PO SCH ×2 (09:30→20:52)
[2018-12-19] MEDS: POTASSIUM CHLORIDE 10 MEQ TABCR PO SCH (09:31)
[2018-12-19] MEDS: IPRATROPIUM BROMIDE/ALBUTEROL respimat INH INH SCH ×4 (09:32→20:53)
[2018-12-19] MEDS: MoRPHine SULFATE 2 MG/ML CARP IV PRN ×3 (10:07→22:51)
[2018-12-19] MEDS: POT PHOSPHATE MONOBASIC W/ SOD TAB PO SCH (10:37)
[2018-12-19] MEDS: LORazepam 1 MG TAB PO PRN ×2 (11:49→21:42)
[2018-12-19] MEDS: cefTRIAXone SODIUM 1,000 MG in DEXTROSE 5% 50 ML IV SCH (15:47)
--- NOTE | 2018-12-19 15:55 | Hospitalist Progress Note ---
Date of Service December 19, 2018 Assessment & Plan (1) UTI (urinary tract infection): She has history of complicated UTI with vesicovaginal fistula UC from July showed resistant E.Coli susceptible to Zosyn, unable to obtain UC here BC growing providencia x1 vial - de-escalated abx to ceftriaxone Dc'd IVF for increased lower extremity edema (2) Hypokalemia: replaced (3) Cachexia: Dietary consult continue home Marinol (4) Severe protein-calorie malnutrition: As above (5) Anemia: Hgb 5.8 10/2 - no obvious s/s of bleeding but with positive FOBT - 2 units prbcs 10/2 - Hgb stable since transfusion, may need further work up if hgb drops again but will hold off for now. Patient is quite frail and given her advanced cancer may not be a candidate for any further GI workup - continue protonix po (6) Cervical cancer: Patient had chemo 2 weeks prior to arrival. [facility]onc Dr. Mccarthy. (7) Hypophosphatemia: Resolved Phos 1.2 / - given Kphos po 2 tabs Encourage to drink Boost and milk (8) Hypomagnesemia: Increased po mag to bid 1gm IV mag repeat level am (9) Nausea: No emesis Continue Zofran prn, prn Will start carafate (10) DVT prophylaxis: SCDs, subq heparin Dispo: plans to return home with fiance at discharge Subjective Ms. Garcia continues to have frequent nausea. She feels weak. No pain Review of Systems Review of Systems: All systems reviewed & are unremarkable except as noted in HPI & below Physical Exam Physical Exam: General: no distress Eyes: normal inspection, PERLL Respiratory: chest non tender, clear to auscultation, normal breath sounds, no respiratory distress, no accessory muscle use Cardiac: regular rate and rhythm, no rub or gallop, no murmur, no edema, no jvd GI/: active bowel sounds, no abd pain or tenderness, soft, non distended Extremities: normal range of motion, normal strength, non tender Neuro/Psych: alert and oriented x 3, normal mood and affect Skin: normal color, dry Results & Data Vital Signs (Past 12 Hours) Vital Signs Temp Pulse Resp BP BP Pulse Ox 12/19/18 14:59 36.6 C 89 18 120/75 96 12/19/18 07:04 36.5 C 84 16 109/71 96 PG Care Time/CCT Total # of Minutes Spent Total Time Spent with Patient: Total time spent is greater than 50% in coordination of care (as documented) at patient's floor/unit and/or counseling patient: (1) Cervical cancer Malignant neoplasm of cervix location: unspecified location Qualified Code(s): C53.9 - Malignant neoplasm of cervix uteri, unspecified
[2018-12-19] MEDS: SUCRALFATE 1 GM TAB PO SCH ×2 (16:27→20:52)
[2018-12-19] MEDS: MIRTAZAPINE TAB 15 MG TAB PO SCH (20:54)
[2018-12-20] MEDS: ONDANSETRON INJ 2 MG/ML 2 ML VIAL IV PRN ×3 (00:10→23:37)
[2018-12-20] MEDS: HEPARIN 100 UNIT/ML 5ML FLUSH FLUSH PRN ×8 (00:10→23:37)
[2018-12-20] MEDS: MoRPHine SULFATE 2 MG/ML CARP IV PRN ×3 (03:00→21:02)
[2018-12-20] MEDS: MoRPHine SULFATE CR 15 MG TABCR PO SCH ×3 (05:10→22:05)
[2018-12-20] MEDS: HEPARIN SOD 5,000 UNIT/0.5 ML VIAL SQ SCH ×3 (05:10→20:55)
[2018-12-20 06:19] LABS: Hematocrit (blood only) 27.4 % (37-47); Hemoglobin 9.1 g/dL (12.0-16.0); Mean Corpuscular Hemoglobin 28.4 pg (25-34); Mean Corpuscular Hgb Conc 33.2 g/dL (32-36); Mean Corpuscular Volume 85.6 fL (80-100); Mean Platelet Volume 9.3 fL (7.4-10.4); Platelet Count 213 K/uL (130-400); RDW Coefficient of Variation 21.3 % (11.5-14.5); RDW Standard Deviation 63.9 fL (36.4-46.3); White Blood Count 8.35 K/uL (4.8-10.8)
[2018-12-20 06:55] LABS: BUN Creatinine Ratio 7.7 (10-20); Calcium 7.6 mg/dl (8.5-10.1); Creatinine Clr Calc Pharmacy 33.6 ml/min; Est GFR (African American) 75.6; Est GFR (Non-African American) 65.2; Magnesium 1.7 mg/dl (1.8-2.4); Potassium 4.3 mmol/L (3.5-5.1)
[2018-12-20] MEDS: SUCRALFATE 1 GM TAB PO SCH (07:48)
[2018-12-20] MEDS: IPRATROPIUM BROMIDE/ALBUTEROL respimat INH INH SCH ×4 (09:23→20:42)
[2018-12-20] MEDS: PANTOprazole 40 MG TAB PO SCH ×2 (09:24→20:43)
[2018-12-20] MEDS: POTASSIUM CHLORIDE 10 MEQ TABCR PO SCH (09:25)
[2018-12-20] MEDS: MAGNESIUM OXIDE 400 MG TAB PO SCH ×2 (09:25→20:43)
--- NOTE | 2018-12-20 10:41 | XRay Report ---
KUB HISTORY: Nausea. Generalized abdominal pain. COMPARISON: Chest and abdominal series 08/22/2018. FINDINGS: Mildly dilated gas-filled loops of large or small bowel seen throughout the abdomen. Modera te well-formed stool within the distal colon. There is suture material at the rectum. Prior cholecyst ectomy. Small right pleural effusion. There is gas within the rectum. No renal calculi. No ureteral calculi. No pneumoperitoneum or pneumatosis. IMPRESSION: Mildly dilated gas-filled loops of large and small bowel seen within the abdomen. Findings favor an i leus. Electronically signed by: Junior Velazquez M.D. 12/20/2018 10:40 AM
--- NOTE | 2018-12-20 10:54 | Hospitalist Progress Note ---
Date of Service December 20, 2018 Assessment & Plan (1) UTI (urinary tract infection): She has history of complicated UTI with vesicovaginal fistula Unable to obtain UC here BC growing providencia x1 vial - de-escalated abx to ceftriaxone from Zosyn - 7 day course completed 12/20 Dc'd IVF for increased lower extremity edema (2) Hypokalemia: replaced (3) Cachexia: Dietary consult continue home Marinol (4) Severe protein-calorie malnutrition: As above (5) Anemia: Hgb 5.8 10/ - no obvious s/s of bleeding but with positive FOBT - 2 units prbcs 10 - Hgb stable since transfusion, may need further work up if hgb drops again but will hold off for now. Patient is quite frail and given her advanced cancer may not be a candidate for any further GI workup - continue protonix po (6) Cervical cancer: Patient had chemo 2 weeks prior to arrival. She follows with [facility] heme/onc Dr. Mccarthy. (7) Hypophosphatemia: Resolved Phos 1.2 12/19 - given Kphos po 2 tabs Encourage to drink Boost and milk (8) Hypomagnesemia: Increased po mag to bid 1gm IV mag again today repeat level am (9) Nausea: No emesis Continue Zofran prn, prn Initiated carafate yesterday but doesn't seem to be helping With some abdominal pain today - will send for KUB (10) Diarrhea: Repeat Cdiff negative Stool cultures pending (11) DVT prophylaxis: SCDs, subq heparin Dispo: plans to return home with fiance at discharge Subjective Ms. Garcia continues to be nauseas. She does have some abdominal pain that is mild. She is having frequent stools. Review of Systems Review of Systems: All systems reviewed & are unremarkable except as noted in HPI & below Physical Exam Physical Exam: General: no distress, cachectic Eyes: normal inspection, PERLL Respiratory: chest non tender, clear to auscultation, normal breath sounds, no respiratory distress, no accessory muscle use Cardiac: regular rate and rhythm, no rub or gallop, no murmur, no edema, no jvd GI/: active bowel sounds, no abd pain or tenderness, soft, non distended Extremities: normal range of motion, normal strength, non tender Neuro/Psych: alert and oriented x 3, normal mood and affect Skin: normal color, dry Results & Data Vital Signs (Past 12 Hours) Vital Signs Temp Pulse Resp BP Pulse Ox 12/19/18 22:56 36.6 C 89 14 119/75 96 PG Care Time/CCT Total # of Minutes Spent Total Time Spent with Patient: Total time spent is greater than 50% in coordination of care (as documented) at patient's floor/unit and/or counseling patient: (1) Cervical cancer Malignant neoplasm of cervix location: unspecified location Qualified Code(s): C53.9 - Malignant neoplasm of cervix uteri, unspecified
[2018-12-20] MEDS ORDERED: MAGNESIUM SULFATE / D5W 1 GM/100 ML BAG IV ONE (10:58)
[2018-12-20] MEDS: SUCRALFATE 1 GM/10 ML UDC PO SCH ×3 (12:33→20:42)
[2018-12-20] MEDS: DICYCLOMINE HCL 20 MG TAB PO PRN (12:38)
[2018-12-20] MEDS: LORazepam 1 MG TAB PO PRN ×2 (13:25→23:37)
[2018-12-20] MEDS: cefTRIAXone SODIUM 1,000 MG in DEXTROSE 5% 50 ML IV SCH (15:57)
[2018-12-20] MEDS: ACETAMINOPHEN 325 MG TAB PO PRN (17:08)
[2018-12-20] MEDS: MIRTAZAPINE TAB 15 MG TAB PO SCH (20:44)
[2018-12-21] MEDS: HEPARIN 100 UNIT/ML 5ML FLUSH FLUSH PRN ×4 (05:23→20:42)
[2018-12-21] MEDS: HEPARIN SOD 5,000 UNIT/0.5 ML VIAL SQ SCH ×3 (05:30→21:02)
[2018-12-21] MEDS: MoRPHine SULFATE CR 15 MG TABCR PO SCH ×3 (05:30→21:56)
[2018-12-21] MEDS: ONDANSETRON INJ 2 MG/ML 2 ML VIAL IV PRN (05:34)
[2018-12-21 06:07] LABS: Hematocrit (blood only) 32.3 % (37-47); Hemoglobin 10.7 g/dL (12.0-16.0); Mean Corpuscular Hemoglobin 28.5 pg (25-34); Mean Corpuscular Hgb Conc 33.1 g/dL (32-36); Mean Corpuscular Volume 85.9 fL (80-100); Mean Platelet Volume 9.7 fL (7.4-10.4); Platelet Count 261 K/uL (130-400); RDW Coefficient of Variation 21.2 % (11.5-14.5); RDW Standard Deviation 65.2 fL (36.4-46.3); Red Blood Count 3.76 M/uL (4.2-5.4)
[2018-12-21 06:20] LABS: BUN Creatinine Ratio 8.4 (10-20); Calcium 8.1 mg/dl (8.5-10.1); Creatinine Clr Calc Pharmacy 35.8 ml/min; Est GFR (African American) 81.7; Est GFR (Non-African American) 70.5; Magnesium 1.8 mg/dl (1.8-2.4); Potassium 4.5 mmol/L (3.5-5.1)
[2018-12-21] MEDS: PANTOprazole 40 MG TAB PO SCH ×2 (07:32→20:53)
[2018-12-21] MEDS: SUCRALFATE 1 GM/10 ML UDC PO SCH ×2 (07:32→14:10)
[2018-12-21] MEDS: DICYCLOMINE HCL 20 MG TAB PO PRN (07:33)
[2018-12-21] MEDS: MoRPHine SULFATE 2 MG/ML CARP IV PRN ×2 (09:14→20:40)
[2018-12-21] MEDS: IPRATROPIUM BROMIDE/ALBUTEROL respimat INH INH SCH ×4 (09:15→20:40)
[2018-12-21] MEDS: MAGNESIUM OXIDE 400 MG TAB PO SCH ×2 (09:15→20:41)
[2018-12-21] MEDS: ONDANSETRON INJ 2 MG/ML 2 ML VIAL IV SCH ×2 (10:37→17:15)
[2018-12-21] MEDS: POTASSIUM CHLORIDE 10 MEQ TABCR PO SCH (12:12)
[2018-12-21] MEDS: ACETAMINOPHEN 325 MG TAB PO PRN (12:12)
--- NOTE | 2018-12-21 12:40 | Palliative Care Consultation ---
Date of Consultation December 21, 2018 Assessment & Plan (1) Goals of care, counseling/discussion: -58 year old female patient with PMH squamous cell cervical cancer, originally dx in 2002, s/p supracervical hysterectomy and bilateral salpingo- oophorectomy and XRT, with recurrence of disease in 2018, presented to the hospital with c/o decreased ppetite, loose stools, fever, and confusion. She was admitted with possible UTI, hypokalemia, cachexia, and malnutrition. Urine cx was not obtained, /2 blood cultures growing providencia. Patient also had profound anemia with hgb 5.8 on 12/16, received 2 units PRBCs. Had a positive FOBT, but no further testing done at this time as patient's hgb improved and is now stable. Patient was dx with cervical cancer in 2002. Underwent surgery and XRT. There apparently was a remaining piece of cervix. Follow up biopsy of cervix in 2015 was negative for malignancy. Patient then had a vaginal wall biopsy in 2017 which showed high grade squamous intraepithelial lesion which was invasive carcinoma. Bladder biopsy as well revealing invasive carcinoma. PET/CT scan showed no distant metastasis. Extensive surgery was offered, but based on patient's overall condition it was apparently decided against this. Patient had six cycles of Paclitaxel and carboplatin, last given in March 2018. Chemo was stopped due to multiple hospital admissions and illnesses. She then was started on Navelbine from July to September 2018. She was then switched to single agent gemcitabine in November. Patient seen on by heme/onc on 12/08-- follow-up imaging at that time showed disease progression with increased size of vaginal cuff and left ureter obstruction. Creatinine was bumped to 1.3 and there was left hydronephrosis. Patient is severely cachectic, weak, and frail. Her albumin is 1.3. She has been having diarrhea and is C. diff positive. On 12/20, however, she had KUB which showed ileus, but continues to have diarrhea. She lives at home with her boyfriend/fiance, Guido. Palliative care is consulted to discuss goals fo care. -Met with patient this morning in room 350. She is AA&O x4. Somewhat flattened affect. -Patient c/o ongoing diarrhea today, has continued abdominal discomfort and pain in tailbone/back area. Pain is currently 7/10. Patient is not in distress, no facial grimacing while lying flat. But did have some visual signs of discomfort while ambulating and going to bathroom. -Patient is on MS Contin 15mg PO TID. Is currently ordered morphine 2mg IV Q3h PRN moderate pain, and 4mg IV Q4h PRN severe pain. -Has used 3 doses of 2mg IV morphine in 24 hours. Will discontinue the 4mg order and order her home dose of Oxycodone IR 5mg PO Q4h PRN pain. Give morphine for severe pain if oxycodone ineffective. -Discussed CODE STATUS and GOALS OF CARE. Patient states that she "has no idea," what the plan is moving forward with her cancer treatment. She knows she is declining and is uncertain if further treatment is in her best interest. However, she would like to discuss with her oncologist prior to making any decisions. Patient would like to know what her prognosis is if she continues treatment vs. not continue with treatment. -In regards to code status, patient is not ready to make a decision. Currently, she is a full code. Again, she would like to make this decision once she finds out from her oncologist where she is at in the [facility] scheme of things. I did discuss the fact that if patient's heart stopped or she stopped breathing, with her advanced illness, the likelihood of bringing her back with a meaningful or good quality of life is very unlikely. She did verbalize understanding. -Palliative care will continue to follow during hospitalization. (2) Diarrhea: (3) Nausea: (4) Cervical cancer: Malignant neoplasm of cervix location: unspecified location Qualified Code(s): C53.9 - Malignant neoplasm of cervix uteri, unspecified (5) Cancer related pain: Supervising Physician Co-Signing Physician Notes Chart reviewed, patient seen and examined, collaborated with AV Gonzalez. PE: Patient alert and oriented, no acute distress. Patient cachectic HEENT: EOMI, hearing within normal limits Respiratory: Unlabored, clear breath sounds CV: Regular rate, positive lower extremity edema Abdomen: Soft, nontender Neuro: Alert and oriented x4 Patient's weight one year ago was 100 pounds, she weighed 80 pounds on this admission for weight loss of 20 pounds over the period of a year. Patient realizes she is declining, however wishes to speak with oncology regarding her treatment options. Agree with above note, assessment and plan as per AV Gonzalez. Will continue to follow and assist patient with medical decision making. History of Present Illness Attending Physician: Karson Qureshi History of Present Illness This 58 year old female patient with PMH squamous cell cervical cancer, originally dx in 2002, s/p supracervical hysterectomy and bilateral salpingo- oophorectomy and XRT, with recurrence of disease in 2018, presented to the hospital with c/o decreased ppetite, loose stools, fever, and confusion. She was admitted with possible UTI, hypokalemia, cachexia, and malnutrition. Urine cx was not obtained, / blood cultures growing providencia. Patient also had profound anemia with hgb 5.8 on 12/16, received 2 units PRBCs. Had a positive FOBT, but no further testing done at this time as patient's hgb improved and is now stable. Patient was dx with cervical cancer in 2002. Underwent surgery and XRT. There apparently was a remaining piece of cervix. Follow up biopsy of cervix in 2015 was negative for malignancy. Patient then had a vaginal wall biopsy in 2017 which showed high grade squamous intraepithelial lesion which was invasive carcinoma. Bladder biopsy as well revealing invasive carcinoma. PET/CT scan showed no distant metastasis. Extensive surgery was offered, but based on patient's overall condition it was apparently decided against this. Patient had six cycles of Paclitaxel and carboplatin, last given in March 2018. Chemo was stopped due to multiple hospital admissions and illnesses. She then was started on Navelbine from July to September 2018. She was then switched to single agent gemc itabine in November. Patient seen on by heme/onc on 12/08-- follow-up imaging at that time showed disease progression with increased size of vaginal cuff and left ureter obstruction. Creatinine was bumped to 1.3 and there was left hydronephrosis. Patient is severely cachectic, weak, and frail. Her albumin is 1.3. She has been having diarrhea and is C. diff positive. On 12/20, however, she had KUB which showed ileus, but continues to have diarrhea. She lives at home with her boyfriend/fianceGuido. Palliative care is consulted to discuss goals fo care. Thank you kindly for this consult. Palliative care team will follow as needed. Allergies Allergy/AdvReac Type Severity Reaction Status Date / Time No Known Drug Allergies Allergy . Verified 12/14/18 23:47 Home Medications Home Medications Medication Instructions Recorded Confirmed Type dicyclomine 20 mg PO Q6 PRN 12/25/17 12/14/18 History morphine 15 mg PO Q8 12/25/17 12/14/18 History Combivent Respimat 1 puff INHALATION QID 01/06/18 12/14/18 History ondansetron 4 mg PO Q6H PRN #30 ea 08/22/18 12/14/18 Rx mirtazapine 45 mg tablet 45 mg PO HS #30 tab 09/01/18 12/14/18 Rx valacyclovir 1 gram tablet 100 mg PO TID PRN #21 tab 09/07/18 12/14/18 History dronabinol 5 mg capsule 5 mg PO BID #60 cap 09/29/18 12/14/18 Rx hydroxyzine pamoate 50 mg capsule 50 mg PO TID PRN #60 cap 09/29/18 12/14/18 Rx omeprazole 20 mg capsule,delayed 20 mg PO BID #60 cap 09/29/18 12/14/18 Rx release lorazepam 1 mg tablet 1 mg PO TID PRN #90 tab 11/25/18 12/14/18 Rx Chemotherapy Drug 1 dose DIRECTED 12/14/18 12/14/18 History magnesium oxide 400 mg PO DAILY 12/14/18 12/14/18 History potassium chloride 10 meq PO DAILY 12/14/18 12/14/18 History Patient History Medical History Chronic kidney disease, stage 3a (Chronic) pt denies COPD (chronic obstructive pulmonary disease) (Chronic) Generalized anxiety disorder (Chronic) Depression (Chronic) GERD (gastroesophageal reflux disease) (Chronic) Low back pain (Chronic) Alcohol overdose Cervical cancer mets to bladder -- chemotherapy currently. History of diverticulitis Kidney stones Partial small bowel obstruction Port-A-Cath in place Recurrent ventral incisional hernia Small bowel obstruction Vomiting Surgical History H/O colonoscopy "06/02/14- The examined portion of the ileum was normal. Normal mucosa in the entire examined colon. Fluid aspiration performed. Patent functional end-to-end colo-colonic anastomosis. Biopsies normal. 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 History of tonsillectomy Hx of dilation and curettage Hx of hernia repair "2007- incisional hernia repair with mesh" Hx of laparoscopy "2008- with extensive adhesiolysis, laparoscopic incisional hernia repairs with with mesh" S/P exploratory laparotomy "with extensive lysis of adhesions; resection of colorectal anastamosis; stapled end to end colorectal anastomosis w/completion proctoscopy" Status post small bowel resection hx Family History Sister Diabetes Other Lung disease Social History Preferred Language: Thai Communication Ability: Effective 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 Beliefs That Will Affect Care: None marital status: Life Partner Current Living Situation: Spouse Feels Safe at Home: Yes Smoking Status: Current every day smoker Tobacco Type: cigarettes ; Cigarettes Per Day: 10 x 40 years ; Second Hand Exposure: Yes ; Hx Alcohol Use: No Hx Substance Use: No Review of Systems Review of Systems: Const: + weakness ENMT: No dysphagia Resp: No SOB, no cough Cardio: No chest pain, + BLE edema GI: + occasional abdominal pain, + occasional nausea and vomiting MS: + tail bone and lower back pain 09/23 Neuro: No confusion Psych: Physical Exam Constitutional: + ill appearing, + cachectic and + frail appearing ENMT: external ear and nose normal, oropharynx normal Neck: normal visual inspection Respiratory: normal respiratory effort, lungs clear to auscultation Auscultation: + diminished lung sounds Cardiovascular: Rate/Rhythm: regular rate and regular rhythm Extremities: + edema (+3 pitting edema to BL ankles) Gastrointestinal (Abdomen): Inspection/Auscultation: abdomen normal to inspection and normal bowel sounds Percussion/Palpation: abdomen soft; abdomen nontender Neurologic: moves all extremities and awake Psychiatric: Orientation: alert and oriented x 3 Affect: + flat affect Results & Data Vital Signs (Past 12 Hours) Vital Signs Temp Pulse Resp BP BP Pulse Ox 12/21/18 07:35 150/81 H 10/07/19 07:05 37.0 C 92 H 16 163/92 H 95 Time Spent Midlevel 70 minutes with >50% of the time spent at bedside with patient discussing condition and GOC.
[2018-12-21] MEDS ORDERED: OXYCODONE HCL IR 5 MG TAB (IMMEDIATE RELEASE) PO PRN (14:46)
--- NOTE | 2018-12-21 14:58 | Hospitalist Progress Note ---
Date of Service December 21, 2018 Assessment & Plan (1) UTI (urinary tract infection): - H/o complicated UTI with vesicovaginal fistula; could not obtain UC as inpatient. - Completed 7 day course of IV abx (Ceftriaxone to Zosyn) (2) Positive blood culture: - BC (1 of 2) on 12/15 positive for Providencia rettgeri. - Completed 7 day course of IV abx; no indication for further treatment. (3) Cervical cancer: - Follows with Dr. Mccarthy from [facility]; has overall failure to thrive with generalized deconditioning -- imaging shows progression of disease. - Initially diagnosed in 2002, s/p supracervical hysterectomy and bilat salpingo-oophorectomy; developed recurrence of disease in 2017, most recently received single agent Gemcitabine in Nov 2018. - Continue MS Contin 15 mg PO q8hr; Tylenol, Oxycodone and Morphine prn. - Consulted palliative care, greatly appreciate input. - Pt. does not want to transition goals of care and would like to meet with her oncologist in near future as outpatient. (4) Ileus: - Noted on KUB from 12/20; is not likely contributing to symptoms. - No indication for NPO status or NG tube -- has a very poor nutritional status. (5) Nausea: - Zofran q6hr scheduled with Phenergan as needed. - Appears to be a chronic issue, will likely not fully resolve prior to discharge. (6) Diarrhea: - C. diff negative (gene has been positive in the past, toxin negative); Stool cultures negative. - KUB showed an ileus. (7) Cachexia: - In setting of poor PO intake, cervical cancer. - Nutrition consulted. - Continue Marinol 5 mg BID & Remeron 45 mg qhs as prescribed. (8) Anemia: - Hgb decreased to 5.8 on 12/16, FOBT was positive; responded well to 2 units. - No indication for further GI work up -- would not be candidate for aggressive treatment due to issues noted above. - Continue PPI BID. - Monitor CBC daily. (9) Severe protein-calorie malnutrition: - Alb 1.3 on 12/17; in setting of cervical cancer. (10) Electrolyte abnormality: - Replace as needed. (11) DVT prophylaxis: - SCDs; Heparin. Dispo: Med/surg; discharge likely on 12/22 pending improvement in N/V. Will need close follow up with palliative care and Dr. Mccarthy. Subjective Pt. has nausea and vomiting -- she has not been able to tolerate PO intake due to symptoms. Also has diarrhea, denies abd pain. KUB on 12/20 showed ileus. Palliative care met with the patient; she would like to see Dr. Mccarthy prior to changing her goals of care. Review of Systems Review of Systems: All systems reviewed & are unremarkable except as noted in HPI & below Constitutional: + fatigue, + weakness, + anorexia and + weight loss; no fever and no chills Respiratory: no cough, no dyspnea, no dyspnea on exertion and no wheezing Cardiovascular: + edema; no chest pain, no palpitations and no lightheadedness Gastrointestinal: + nausea, + vomiting and + diarrhea/loose stools; no abdominal pain Genitourinary: no difficulty urinating Musculoskeletal: no back pain and no joint pain Integumentary: no non-healing lesions Physical Exam Physical Exam: General: Chronically ill appearing female, no acute distress. HEENT: NC/AT; PERRLA with EOMI; [place] conjunctiva, MMM. No erythema of posterior pharynx Neck: Supple and nontender Cardiac: RRR Lungs: CTA bilaterally Abdomen: Bowel normoactive X 4; Nontender to palpation Extremities: Warm. +1-2 bilat LE pitting edema. Neuro: No focal weakness Skin: No rash Results & Data Vital Signs (Past 12 Hours) Vital Signs Temp Pulse Resp BP BP Pulse Ox 12/21/18 07:35 150/81 H 12/21/18 07:05 37.0 C 92 H 16 163/92 H 95 Laboratory Results 12/21/18 12/21/18 Range/Units 05:23 05:23 WBC 10.10 (4.8-10.8) K/uL RBC 3.76 L (4.2-5.4) M/uL Hgb 10.7 L (12.0-16.0) g/dL Hct 32.3 L (37-47) % MCV 85.9 (80-100) fL MCH 28.5 (25-34) pg MCHC 33.1 (32-36) g/dL RDW Std Deviation 65.2 H (36.4-46.3) fL RDW Coeff of Matthew 21.2 H (11.5-14.5) % Plt Count 261 (130-400) K/uL MPV 9.7 (7.4-10.4) fL Sodium 137 (136-145) mmol/L Potassium 4.5 (3.5-5.1) mmol/L Chloride 103 (98-107) mmol/L Carbon Dioxide 30 (21-32) mmol/L Anion Gap 5.0 (3-11) BUN 8 (7-18) mg/dl Creatinine 0.90 (0.6-1.2) mg/dl Est Cr Clr Drug Dosing 35.8 ml/min Est GFR ( Amer) 81.7 Est GFR (Non-Af Amer) 70.5 BUN/Creatinine Ratio 8.4 L (10-20) Glucose 82 (70-99) mg/dl Calcium 8.1 L (8.5-10.1) mg/dl Magnesium 1.8 (1.8-2.4) mg/dl PG Care Time/CCT Total # of Minutes Spent Total Time Spent with Patient: Total time spent is greater than 50% in coordination of care (as documented) at patient's floor/unit and/or counseling patient: (1) Cervical cancer Malignant neoplasm of cervix location: unspecified location Qualified Cod e(s): C53.9 - Malignant neoplasm of cervix uteri, unspecified
[2018-12-21] MEDS: MIRTAZAPINE TAB 15 MG TAB PO SCH (20:41)
[2018-12-21] MEDS: LORazepam 1 MG TAB PO PRN (21:55)
[2018-12-22] MEDS: ONDANSETRON INJ 2 MG/ML 2 ML VIAL IV SCH ×3 (00:11→11:22)
[2018-12-22] MEDS: HEPARIN 100 UNIT/ML 5ML FLUSH FLUSH PRN ×4 (00:12→11:30)
[2018-12-22] MEDS: HEPARIN SOD 5,000 UNIT/0.5 ML VIAL SQ SCH (05:27)
[2018-12-22] MEDS: MoRPHine SULFATE CR 15 MG TABCR PO SCH (05:33)
[2018-12-22] MEDS: MoRPHine SULFATE 2 MG/ML CARP IV PRN (07:42)
[2018-12-22] MEDS: IPRATROPIUM BROMIDE/ALBUTEROL respimat INH INH SCH (07:43)
[2018-12-22 08:23] LABS: Hematocrit (blood only) 32.1 % (37-47); Hemoglobin 10.6 g/dL (12.0-16.0); Mean Corpuscular Hemoglobin 28.4 pg (25-34); Mean Corpuscular Volume 86.1 fL (80-100); Mean Platelet Volume 9.2 fL (7.4-10.4); Platelet Count 240 K/uL (130-400); RDW Coefficient of Variation 20.8 % (11.5-14.5); RDW Standard Deviation 63.3 fL (36.4-46.3); Red Blood Count 3.73 M/uL (4.2-5.4); White Blood Count 10.88 K/uL (4.8-10.8)
[2018-12-22] MEDS: MAGNESIUM OXIDE 400 MG TAB PO SCH (08:27)
[2018-12-22] MEDS: POTASSIUM CHLORIDE 10 MEQ TABCR PO SCH (08:27)
[2018-12-22] MEDS: LORazepam 1 MG TAB PO PRN (08:27)
[2018-12-22 08:49] LABS: Albumin Level 1.7 gm/dl (3.4-5.0); BUN Creatinine Ratio 8.4 (10-20); Creatinine Clr Calc Pharmacy 37.1 ml/min; Est GFR (African American) 85.1; Est GFR (Non-African American) 73.4; Magnesium 1.8 mg/dl (1.8-2.4); Potassium 4.5 mmol/L (3.5-5.1)
[2018-12-22 08:51] LABS: Albumin Globulin Ratio 0.4 (0.9-2); Bilirubin,Total 0.3 mg/dl (0.2-1); Globulin 4.1 gm/dl (2.5-4.0); Total Protein 5.8 gm/dl (6.4-8.2)
[2018-12-22] MEDS: PANTOprazole 40 MG TAB PO SCH (09:20)
--- NOTE | 2018-12-22 13:52 | Discharge Summary ---
Date of Service December 22, 2018 Admission HPI Per Admitting Provider 58 y/o female presented to the ED with complaints of decreased appetite, loose stools, fever to 100F and associated confusion. 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 Last chemo was 2 weeks prior. Patient declines having chest pain, SOB, cough, vomiting, or headache. She has history of UTIs. She feels extremely weak. She has not yet decided on hospice or palliative care and remains a full code. The patient did vomit in the ED. Admission Exam Per Admitting Provider General- adult female appears cachectic. Head- atraumatic Eyes- PERRL, EOMI, anicteric ENT- oropharynx clear Neck- supple, no JVD, no adenopathy, no thyromegaly. Lungs- clear to auscultation No wheezes, rales, or rhonchi. Heart- regular rhythm; no murmur, no gallop, no rub appreciated Abdomen- normal bowel sounds, soft, nontender. Extremities- no pretibial edema, no calf tenderness; peripheral pulses intact Neuro- alert, oriented x 3; PERRL, EOMI, care transition mgr II-XII grossly intact, Non-focal. Skin- warm & dry Principal Diagnosis UTI, Metastatic Cervical Cancer Discharge Exam General: Chronically ill appearing female, no acute distress. HEENT: NC/AT; PERRLA with EOMI; [place] conjunctiva, MMM. No erythema of posterior pharynx Neck: Supple and nontender Cardiac: RRR Lungs: CTA bilaterally Abdomen: Bowel normoactive X 4; Nontender to palpation Extremities: Warm. +1 bilat LE pitting edema. Neuro: No focal weakness Skin: No rash Discharge Data Allergies Allergy/AdvReac Type Severity Reaction Status Date / Time No Known Drug Allergies Allergy . Verified 12/14/18 23:47 Consultations 12/15/18 00:12 ED Decision to Admit Stat 12/19/18 17:04 Consult Palliative Care Routine Ordered Studies 12/14/18 21:08 CT head/brain wo con Urgent Hospital Course (1) UTI (urinary tract infection): H/o complicated UTI with vesicovaginal fistula; could not obtain UC as inpatient. Completed 7 day course of IV abx (Ceftriaxone to Zosyn) (2) Positive blood culture: BC (1 of 2) on 12/15 positive for Providencia rettgeri. Completed 7 day course of IV abx; no indication for further treatment. (3) Cervical cancer: Follows with Dr. Mccarthy from [facility]; has overall failure to thrive with generalized deconditioning -- imaging shows progression of disease. Initially diagnosed in 2002, s/p supracervical hysterectomy and bilat salpingo- oophorectomy; developed recurrence of disease in 2018, most recently received single agent Gemcitabine in Nov 2018. Continued MS Contin 15 mg PO q8hr; Tylenol, Oxycodone and Morphine prn. Consulted palliative care, greatly appreciate input. Pt. does not want to transition goals of care; will schedule close follow up with Dr. Mccarthy. (4) Ileus: Noted on KUB from 12/20; is not likely contributing to symptoms. No indication for NPO status or NG tube -- has a very poor nutritional status. Was tolerating PO intake and having BMs prior to discharge. (5) Nausea: Zofran q6hr scheduled with Phenergan as needed. Appears to be a chronic issue. (6) Diarrhea: C. diff negative (gene has been positive in the past, toxin negative); Stool cultures negative. KUB showed an ileus. (7) Cachexia: In setting of poor PO intake, cervical cancer. Nutrition consulted. Continued Marinol 5 mg BID & Remeron 45 mg qhs as prescribed. (8) Anemia: Hgb decreased to 5.8 on 12/16, FOBT was positive; responded well to 2 units. No indication for further GI work up -- would not be candidate for aggressive treatment due to issues noted above. Continued PPI BID. (9) Severe protein-calorie malnutrition: Alb 1.3 on 12/17; in setting of cervical cancer. (10) Electrolyte abnormality: Replaced as needed. (11) DVT prophylaxis: SCDs and Heparin. Discharged to home on 12/22/18. Total Time Total Time Spent Total Time Spent (In Minutes): >30 minutes Total Time Includes: Examination of the Patient, Discharge Planning, Medication Reconciliation, Communication With Other Providers and Other Discharge Plan Discharge Items Patient Disposition: Home - Self-Care Reason For Visit: AMS Discharge Diagnosis: Metastatic Cervical Cancer Nausea/Vomiting/Diarrhea Activity: As commented below Exercise/Sports: Gradually increase as tolerated Non-emergency contact: Primary Care Provider and Oncologist Call non-emergency contact if: you have any medication questions, your symptoms worsen, your pain is not controlled, your pain is worsening, your pain is unusual for you, your pain is concerning for you and you have a fever Follow-up/Referrals: Anita Goodwin MD [Primary Care Provider] - 12/25/18 10:15 am (Please, follow up with Dr. Goodwin on FridayDecember 25 at 10:15 am. *If you need to change this appointment, call the office at [phone].) Nazario Mccarthy MD [Surgeon] - 12/28/18 12:30 pm (Please, follow up with Dr. Nazario Mccarthy on FridayDecember 28 at 12:30 pm. *If you need to change this appointment, call the office at [phone].) Diet: Regular Addtl Attending Provider Instructions: 1. Metastatic Cervical Cancer * A follow up appointment will be scheduled with Dr. Mccarthy in 1-2 weeks to discuss goals of care and further treatment. * Please take Zofran 4 mg every 6 hours as needed for nausea/vomiting. * You can also take Phenergan 12.5 to 25 mg every 6 hours for nausea/vomiting. * Continue home pain medications as prescribed. * Please drink Boost or Ensure supplements with meals to increase caloric intake. 2. Please follow up with PCP as scheduled on 12/25/18. Pending Studies at Discharge: No Stand-Alone Forms: My [facility], Opioid Pain Management Medications and DC Order Prescriptions: New promethazine 12.5 mg tablet 12.5 mg PO TID PRN (Reason: nausea and vomiting ) Qty: 14 RF: 0 Continued mirtazapine 45 mg tablet 45 mg PO HS Qty: 30 RF: 5 omeprazole 20 mg capsule,delayed release(DR/EC) 20 mg PO BID Qty: 60 RF: 5 lorazepam [Ativan] 1 mg tablet 1 mg PO TID PRN (Reason: anxiety) Qty: 90 RF: 1 hydroxyzine pamoate [Vistaril] 50 mg capsule 50 mg PO TID PRN (Reason: anxiety) Qty: 60 RF: 3 dronabinol 5 mg capsule 5 mg PO BID Qty: 60 RF: 0 potassium chloride 8 mEq tablet extended release 10 meq PO DAILY RF: 0 magnesium oxide 400 mg magnesium Tablet 400 mg PO DAILY RF: 0 ondansetron 4 mg film 4 mg PO Q6H PRN (Reason: nausea and vomiting) Qty: 30 RF: 2 dicyclomine 20 mg Tablet 20 mg PO Q6 PRN (Reason: abdominal cramping) RF: 0 morphine 15 mg Tablet Extended Release 15 mg PO Q8 RF: 0 Combivent Respimat 20-100 mcg/actuation Mist 1 puff INHALATION QID RF: 0 Discontinued valacyclovir 1 gram tablet 100 mg PO TID PRN (Reason: shingles) Qty: 21 RF: 0 Chemotherapy Drug 1 dose DIRECTED RF: 0 Discharge Orders: Discharge Order (Routine); Ordered 12/22/18 Ordered By: Karson Qureshi Admission Data Admit Date/Time: 12/15/18 09:44 Attending Provider: Karson Qureshi Admit Provider: Jose Armando Cowan Primary Care Provider: Anita Goodwin Other Providers: Nate Krishnamurthy ; Liza Pollock Other Interventions: Discharge Summary Assessment (RN) Last Done: 12/22/18 10:31 DC Date/Time DO NOT enter until pt leaves facility: 12/22/18 11:43 Supervising Physician Co-Signing Physician Notes During my face to face encounter, I performed a physical examination and obtained a history on the hospital course. I answered all of the patients questions and discussed the discharge plan. I reviewed above note and agree with it. Patient will continue with current antiemetic medications for her nausea.
--- NOTE | 2018-12-24 11:53 | Coding Query ---
CODING QUERY To promote full compliance with coding requirements relating to patient care, provider participation is requested in all cases of instructor looping uncertainty. Please assist us with the question(s) below: Coding Question(s): DS states patient was treated for 7 days of antiobiotics during this IP stay. Blood Cultures gew Providencia- . Please document the diagnosis that was treated. Thank you ! John Villagran [employer] [facility] Physician's Response(s): Patient probably had a UTI which is what is documented on the discharge summary. The blood culture only had one of 2 sets positive. Likely a contaminant. Principal Diagnosis: "that condition established after study, to be chiefly responsible for occasioning the admission of the patient to the hospital for care." Co-Existing Principal Diagnosis: "when two or more diagnoses equally meet the criteria for principal diagnosis as determined by the circumstances of admission, diagnostic work up, and/or therapy provided, and the Alphabetic Index, Tabular List, or another coding guideline does not provide sequencing direction, any one of the diagnoses may be sequenced first." "When the physician has documented what appears to be a current diagnosis in the body of the record, but has not included the diagnosis in the final diagnostic statement, the physician should be asked whether the diagnosis should be added." (Source Coding [facility] 2 QTR90. p3-4) ANGELITA
== END 2018-12-22 11:43 | disposition home or self-care (01) | DRG 689 ==
LOC: ED 20:35 → 3W 20:35 → SUATTDRO 12-15 01:35 → 3W 12-15 02:18 → SUATTDRO 12-15 09:44